=== PATIENT | male | born 1945 | race Caucasian/White ===

== ENCOUNTER 2016-09-09 03:48 | Emergency (ER) | payer MEDICARE ==
[2016-09-09 04:14] VITALS: TEMP 97.9
--- NOTE | 2016-09-09 04:29 | ED.PDOC ---
History of Present Illness - General Chief Complaint: General Stated Complaint: Rt leg numbness, dizziness Time Seen by Provider: 09/09/16 04:19 Additional Information: PT C/O DIZZINESS ONSET YESTERDAY. LIGHT HEADED. RECENTLY HAD CARDIAC STENT PLACED AND HE WAS CONCERNED HE MIGHT BE DEVELOPING A BLOOD CLOT. - History of Present Illness Timing/Duration: other - YESTERDAY Severity: mild Improving Factors: nothing Worsening Factors: nothing Associated Symptoms: denies symptoms Allergies/Adverse Reactions: Allergies NO KNOWN ALLERGY Allergy (Verified 09/09/16 04:14) Home Medications: Ambulatory Orders Glimepiride 4 mg PO DAILY 06/16/16 Lisinopril 10 mg PO DAILY 06/16/16 Metformin HCl 1,000 mg PO BID 06/16/16 Metoprolol Tartrate 100 mg PO BID 06/16/16 Pravastatin Sodium 40 mg PO BEDTIME 06/16/16 Trazodone HCl 100 mg PO 06/16/16 Furosemide 20 mg PO DAILY 07/30/16 Meloxicam 15 mg PO DAILY 07/30/16 Amoxicillin & Pot Clavulanate [Augmentin Tab] 875 mg PO BID #20 tab 08/12/16 Amiodarone HCl 200 mg PO DAILY 09/09/16 Aspirin [[facility] [place] Low Dose Aspiri] 81 mg PO DAILY 09/09/16 Carvedilol 12.5 mg PO DAILY 09/09/16 Ticagrelor [Brilinta] 90 mg PO BID 09/09/16 Review of Systems - Review of Systems Constitutional: Denies: chills, fever EENTM: Denies: eye pain, blurred vision, ear discharge, throat pain Respiratory: Denies: cough, short of breath, wheezing Cardiology: Denies: chest pain, palpitations Gastrointestinal/Abdominal: Denies: abdominal pain, nausea, vomiting Genitourinary: Denies: dysuria, frequency, hematuria Musculoskeletal: Denies: back pain Skin: Denies: no symptoms reported Neurological: States: numbness, paresthesia. Denies: weakness Endocrine: States: no symptoms reported Hematologic/Lymphatic: States: no symptoms reported Past Medical History (General) - Patient Medical History Hx Stroke: No Hx Dementia: Yes Hx of COPD: Yes Hx Cardiac Disorders: Yes Hx Congestive Heart Failure: No Hx Hypertension: Yes Hx Diabetes: Yes Hx Other - free text: PVD - Vaccination History Hx Tetanus, Diphtheria Vaccination: No Hx Influenza Vaccination: Yes Hx Pneumococcal Vaccination: Yes - Social History Hx Tobacco Use: No - e cigarette Hx Alcohol Use: No Hx Substance Use: No Hx Substance Use Treatment: No Hx Depression: No - Female History Patient : No Family Medical History - Family History Father Family History: Unknown Living Status: Unknown Physical Exam - Physical Exam General Appearance: Alert, Comfortable, No apparent distress Eye Exam: bilateral normal Ears, Nose, Throat: hearing grossly normal, normal ENT inspection Neck: non-tender, full range of motion, supple, normal inspection Respiratory: lungs clear, normal breath sounds Cardiovascular/Chest: regular rate, rhythm, no murmur Peripheral Pulses: dorsalis pedis,right: 0, posterior tibialis,right: 0 - FOOT IS STILL WARM TO TOUCH, NL COLOR WITHOUT REST PAIN Gastrointestinal/Abdominal: non tender, soft, no organomegaly Back Exam: normal inspection, no CVA tenderness Extremity: normal range of motion, non-tender, normal inspection Neurologic: no motor/sensory deficits, normal mood/affect, oriented x 3 Skin Exam: normal color Lymphatic: no adenopathy Progress - Progress Progress: 09/09/16 06:06 FEELS BETTER. PT WAS PRIMARILY WORRIED HE HAD A BLOOD CLOT SOMEWHERE. SX'S HAVE RESOLVED. - EKG/XRAY/CT EKG: nonspecific ST T wave Chg, Unchanged from - 08/12/16 Comments: VENTRICULAR PACED RATE 61. LAD, NAIP, Departure - Departure Clinical Impression: Essential (primary) hypertension, Coronary artery arteriosclerosis, Peripheral vascular disease Time of Disposition: 06:12 Disposition: Discharge to Home or Self Care Condition: Fair Departure Forms: ED Discharge - Pt. Copy, Patient Portal Self Enrollment Instructions: High Blood Pressure Home Medications: Ambulatory Orders Glimepiride 4 mg PO DAILY 06/16/16 Lisinopril 10 mg PO DAILY 06/16/16 Metformin HCl 1,000 mg PO BID 06/16/16 Metoprolol Tartrate 100 mg PO BID 06/16/16 Pravastatin Sodium 40 mg PO BEDTIME 06/16/16 Trazodone HCl 100 mg PO 06/16/16 Furosemide 20 mg PO DAILY 07/30/16 Meloxicam 15 mg PO DAILY 07/30/16 Amoxicillin & Pot Clavulanate [Augmentin Tab] 875 mg PO BID #20 tab 08/12/16 Amiodarone HCl 200 mg PO DAILY 09/09/16 Aspirin [[facility] Low Dose Aspiri] 81 mg PO DAILY 09/09/16 Carvedilol 12.5 mg PO DAILY 09/09/16 Ticagrelor [Brilinta] 90 mg PO BID 09/09/16
[2016-09-09 06:38] VITALS: BP 110/60; O2SAT 96
== END 2016-09-09 06:38 | disposition home or self-care (01) ==
LOC: ER 03:48
DX: I73.9 Peripheral vascular disease, unspecified (principal); I25.10 Atherosclerotic heart disease of native coronary artery without angina pectoris; I10 Essential (primary) hypertension; J44.9 Chronic obstructive pulmonary disease, unspecified; E11.9 Type 2 diabetes mellitus without complications; F03.90 Unspecified dementia, unspecified severity, without behavioral disturbance, psychotic disturbance, mood disturbance, and anxiety; F17.290 Nicotine dependence, other tobacco product, uncomplicated; Z79.899 Other long term (current) drug therapy; Z79.82 Long term (current) use of aspirin

== ENCOUNTER 2016-11-09 04:02 | Emergency (ER) | payer MEDICARE ==
[2016-11-09] MEDS ORDERED: IPRATROPIUM/ALBUTEROL 3 ML VIAL NEB ONE ×2 (04:04→05:01)
--- NOTE | 2016-11-09 04:57 | ED.PDOC ---
History of Present Illness - General Chief Complaint: Respiratory Problem Stated Complaint: trouble breathing experiencing SOB Time Seen by Provider: 11/09/16 04:48 Source: patient Exam Limitations: no limitations - History of Present Illness Initial Comments: Mr Jun Mcduffie 71 y/o male with hx of copd/chf/cad /dm2 stated that he had sudden onset of sob as he laid down in bed tonight.He stood up went to his recliner which made it a little better then called up friend.Denies chest pain symptoms. Timing/Duration: 1-3 hours Severity: moderate Improving Factors: rest Worsening Factors: movement Associated Symptoms: denies symptoms Allergies/Adverse Reactions: Allergies NO KNOWN ALLERGY Allergy (Verified 09/09/16 04:14) Home Medications: Ambulatory Orders Glimepiride 4 mg PO DAILY 06/16/16 Lisinopril 20 mg PO BID 06/16/16 Metformin HCl 1,000 mg PO BID 06/16/16 Metoprolol Tartrate 100 mg PO BID 06/16/16 Pravastatin Sodium 40 mg PO BEDTIME 06/16/16 Trazodone HCl 150 mg PO QPM 06/16/16 Furosemide 20 mg PO DAILY 07/30/16 Meloxicam 15 mg PO DAILY 07/30/16 Amiodarone HCl 200 mg PO BID 09/09/16 Aspirin [[facility] Low Dose Aspiri] 81 mg PO DAILY 09/09/16 Carvedilol 12.5 mg PO BID 09/09/16 Ticagrelor [Brilinta] 90 mg PO BID 09/09/16 HYDROcodone 10MG/APAP 325MG [[place] 10/325] 2 tab PO TID 11/09/16 Review of Systems - Review of Systems Constitutional: States: no symptoms reported EENTM: States: no symptoms reported Respiratory: States: see HPI Cardiology: States: no symptoms reported Gastrointestinal/Abdominal: States: no symptoms reported Genitourinary: States: no symptoms reported Musculoskeletal: States: no symptoms reported Skin: States: no symptoms reported Neurological: States: no symptoms reported Endocrine: States: no symptoms reported Hematologic/Lymphatic: States: no symptoms reported Past Medical History (General) - Patient Medical History Hx Stroke: No Hx Dementia: Yes Hx of COPD: Yes Hx Cardiac Disorders: Yes Hx Congestive Heart Failure: Yes Hx Pacemaker: Yes Hx Hypertension: Yes Hx Diabetes: Yes Surgical History: coronary bypass surgery, other - cardiac stent - Vaccination History Hx Tetanus, Diphtheria Vaccination: No Hx Influenza Vaccination: Yes Hx Pneumococcal Vaccination: Yes Immunizations Up to Date: Yes - Social History Hx Tobacco Use: No - e cigarette Hx Alcohol Use: No Hx Substance Use: No Hx Substance Use Treatment: No Hx Depression: No - Activities of Daily Living Patient Lives Alone: No - family Grooming Ability: Independent Eating (Feeding) Ability: Independent Toileting Ability: Independent - Female History Patient : No Family Medical History - Family History Father Family History: Unknown Living Status: Unknown Hx Cardiac Disease: Yes - dad-mi age 61 Physical Exam - Physical Exam General Appearance: Alert, Anxious, No apparent distress Eye Exam: bilateral other - wears corrective lenses Ears, Nose, Throat: hearing grossly normal, normal ENT inspection, normal pharynx Neck: non-tender, full range of motion, supple Respiratory: chest non-tender, decreased breath sounds, wheezing Cardiovascular/Chest: normal peripheral pulses, regular rate, rhythm, no edema, no gallop Peripheral Pulses: radial,right: 2+, radial,left: 2+ Gastrointestinal/Abdominal: normal bowel sounds, non tender, soft, no organomegaly, no pulsatile mass Back Exam: normal inspection, no CVA tenderness, no vertebral tenderness Extremity: normal range of motion, non-tender, normal inspection Neurologic: no motor/sensory deficits, alert, normal mood/affect, oriented x 3 Skin Exam: normal color, warm/dry Lymphatic: no adenopathy Progress - Results/Orders Results/Orders: 11/09/16 05:44 TSH [THYROID STIMULATING HORMONE] Stat Laboratory Results WBC 10.3 K/mm3 (4.8-10.8) 11/09/16 05:30 RBC 3.45 M/mm3 (4.70-6.10) L 11/09/16 05:30 Hgb 10.2 gm/dL (14.0-18.0) L 11/09/16 05:30 Hct 30.1 % (42.0-52.0) L 11/09/16 05:30 MCV 87.0 fl (80.0-94.0) 11/09/16 05:30 MCH 29.5 pg (27.0-31.0) 11/09/16 05:30 MCHC 34.1 g/dL (33.0-37.0) 11/09/16 05:30 RDW 15.1 % (11.5-14.5) H 11/09/16 05:30 Plt Count 207 K/mm3 (130-400) 11/09/16 05:30 MPV 7.3 fl (7.40-10.4) L 11/09/16 05:30 Absolute Neuts (auto) 8.40 K/uL (1.8-6.8) H 11/09/16 05:30 Absolute Lymphs (auto) 0.80 K/uL (1.0-3.4) L 11/09/16 05:30 Absolute Monos (auto) 0.60 K/uL (0.2-0.8) 11/09/16 05:30 Absolute Eos (auto) 0.30 K/uL (0.0-0.4) 11/09/16 05:30 Absolute Basos (auto) 0.10 K/uL (0.0-0.1) 11/09/16 05:30 Neutrophils % 81.8 % (42.0-78.0) H 11/09/16 05:30 Lymphocytes % 8.0 % (20.0-50.0) L 11/09/16 05:30 Monocytes % 6.2 % (2.0-9.0) 11/09/16 05:30 Eosinophils % 3.1 % (1.0-5.0) 11/09/16 05:30 Basophils % 0.9 % (0.0-2.0) 11/09/16 05:30 D-Dimer, Quantitative < 230 ng/mL (0-230) 11/09/16 05:30 Sodium 137 mmol/L (135-145) 11/09/16 05:30 Potassium 4.4 mmol/L (3.6-5.0) 11/09/16 05:30 Chloride 106 mmol/L (101-111) 11/09/16 05:30 Carbon Dioxide 23 mmol/L (21-31) 11/09/16 05:30 Anion Gap 12.4 (12-18) 11/09/16 05:30 BUN 24 mg/dL (7-18) H 11/09/16 05:30 Creatinine 0.84 mg/dL (0.6-1.3) 11/09/16 05:30 BUN/Creatinine Ratio 28.6 (10-20) H 11/09/16 05:30 Random Glucose 132 mg/dL (70-105) H 11/09/16 05:30 Serum Osmolality 279.7 mOsm/L (275-295) 11/09/16 05:30 Calcium 8.7 mg/dL (8.4-10.2) 11/09/16 05:30 Total Bilirubin 0.3 mg/dL (0.2-1.0) 11/09/16 05:30 AST 26 IU/L (10-42) 11/09/16 05:30 ALT 23 IU/L (10-60) 11/09/16 05:30 Alkaline Phosphatase 41 IU/L (42-121) L 11/09/16 05:30 Creatine Kinase 68 IU/L (38-174) 11/09/16 05:30 CK-MB (CK-2) 2.5 ng/mL (0.0-4.4) 11/09/16 05:30 CK-MB (CK-2) % Not Reportable 11/09/16 05:30 Troponin I 0.02 ng/mL (0.01-0.05) 11/09/16 05:30 B-Natriuretic Peptide 797.0 pg/ml (0-100) H* 11/09/16 05:30 Serum Total Protein 6.3 gm/dL (6.4-8.2) L 11/09/16 05:30 Albumin 3.8 g/dl (3.2-5.5) 11/09/16 05:30 Globulin 2.5 gm/dL (2.3-3.5) 11/09/16 05:30 Albumin/Globulin Ratio 1.5 (1.1-1.9) 11/09/16 05:30 Stated feeling better after th bumex iv went to urinate 4x since given the injection - EKG/XRAY/CT XRAY: chest - interstitial opacities Departure - Departure Clinical Impression: Dyspnea due to congestive heart failure Congestive heart failure Qualifiers: Qualifier Code: (I50.9) Heart failure, unspecified Dyspnea Qualifiers: Qualifier Code: (R06.02) Shortness of breath Time of Disposition: 06:44 Disposition: Discharge to Home or Self Care Condition: Fair Departure Forms: ED Discharge - Pt. Copy, Patient Portal Self Enrollment Instructions: DI for Heart Failure Diet: low salt diet, other - limit fluid intake to not more than 4 GLASSES( regular) a day Referrals: Mac Yun MD [Primary Care Provider] - 1-2 Weeks Home Medications: Ambulatory Orders Glimepiride 4 mg PO DAILY 06/16/16 Lisinopril 20 mg PO BID 06/16/16 Metformin HCl 1,000 mg PO BID 06/16/16 Metoprolol Tartrate 100 mg PO BID 06/16/16 Pravastatin Sodium 40 mg PO BEDTIME 06/16/16 Trazodone HCl 150 mg PO QPM 06/16/16 Furosemide 20 mg PO DAILY 07/30/16 Meloxicam 15 mg PO DAILY 07/30/16 Amiodarone HCl 200 mg PO BID 09/09/16 Aspirin [[facility] Low Dose Aspiri] 81 mg PO DAILY 09/09/16 Carvedilol 12.5 mg PO BID 09/09/16 Ticagrelor [Brilinta] 90 mg PO BID 09/09/16 HYDROcodone 10MG/APAP 325MG [[place] 10/325] 2 tab PO TID 11/09/16 Additional Instructions: RETURN TO EMERGENCY ROOM NEEDED
[2016-11-09] MEDS ORDERED: methylPREDNISolone SODIUM SUC 125 MG/2 ML VIAL IV ONE (05:03)
--- NOTE | 2016-11-09 05:10 | RAD ---
EXAM: Single view chest. INDICATION: Chest pain. COMPARISON: Chest x-ray: 08/12/2016. FINDINGS: There are diffuse interstitial opacities. The heart is enlarged with a left chest wall pacemaker in place. There is no pneumothorax. Small pleural effusions may be present. Median sternotomy wires are noted. IMPRESSION: Diffuse interstitial opacities, likely representing pulmonary edema Electronically signed by: Hakeem Bradshaw MD 11/09/2016 5:09 AM CDT
[2016-11-09] MEDS ORDERED: BUMETANIDE 0.25 MG/ML VIAL IV ONE (05:11)
[2016-11-09 06:13] VITALS: O2SAT 96
[2016-11-09 07:06] VITALS: BP 157/81; TEMP 98
== END 2016-11-09 07:00 | disposition home or self-care (01) ==
LOC: ER 04:02
DX: I11.0 Hypertensive heart disease with heart failure (principal); I50.9 Heart failure, unspecified; E11.9 Type 2 diabetes mellitus without complications; F03.90 Unspecified dementia, unspecified severity, without behavioral disturbance, psychotic disturbance, mood disturbance, and anxiety; Z95.1 Presence of aortocoronary bypass graft; Z98.61 Coronary angioplasty status; Z95.0 Presence of cardiac pacemaker; Z79.899 Other long term (current) drug therapy; Z79.82 Long term (current) use of aspirin
CPT/HCPCS: 71010; 80053; 82550; 82553; 83880; 84443; 84484; 85025; 85379; 94640; J2930; J3490; J7620

== ENCOUNTER 2016-11-28 22:51 | Emergency (ER) | payer MEDICARE ==
[2016-11-28] MEDS ORDERED: SODIUM CHLORIDE 0.9% (FLUSH) 10 ML SYG IV PRN (23:40)
--- NOTE | 2016-11-28 23:42 | RAD ---
Procedure: XR CHEST 1 VIEW Exam Date: 11/28/2016 Ordering Provider: Karen Troy Clinical Indication: shortness of breath Comparison: 11/09/2016 Findings: Prior CABG. The subclavian pacer with leads in appropriate position. The heart is enlarged. Pulmonary vasculature is normal. Mediastinal contour is normal. Aortic calcification. There is no focal lung consolidation. No pleural effusion. There is no pneumothorax. There is no acute bony or soft tissue abnormality. Impression: 1. No acute abnormalities in the chest. 2. Cardiomegaly. Electronically signed by: Go Silva MD 11/28/2016 11:42 PM CDT
--- NOTE | 2016-11-29 00:58 | ED.PDOC ---
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 He was on the couch and he was unable to catch his breath. He used his NEB and that did not help. Patient has a history of MD with CABG in July 2016. He denies any chest pain. Timing/Duration: 1-3 hours Severity: severe Improving Factors: nothing Worsening Factors: nothing Allergies/Adverse Reactions: Allergies NO KNOWN ALLERGY Allergy (Verified 11/28/16 23:10) Home Medications: Ambulatory Orders Glimepiride 4 mg PO DAILY 06/16/16 Lisinopril 20 mg PO BID 06/16/16 Metformin HCl 1,000 mg PO BID 06/16/16 Metoprolol Tartrate 100 mg PO BID 06/16/16 Pravastatin Sodium 40 mg PO BEDTIME 06/16/16 Trazodone HCl 150 mg PO QPM 06/16/16 Furosemide 20 mg PO DAILY 07/30/16 Meloxicam 15 mg PO DAILY 07/30/16 Amiodarone HCl 200 mg PO BID 09/09/16 Aspirin [[facility] Low Dose Aspiri] 81 mg PO DAILY 09/09/16 Carvedilol 12.5 mg PO BID 09/09/16 Ticagrelor [Brilinta] 90 mg PO BID 09/09/16 HYDROcodone 10MG/APAP 325MG [[place] 10/325] 2 tab PO TID 11/09/16 Review of Systems - Review of Systems Constitutional: States: no symptoms reported. Denies: chills, fever EENTM: States: no symptoms reported Respiratory: States: short of breath Cardiology: States: no symptoms reported. Denies: chest pain Gastrointestinal/Abdominal: States: no symptoms reported. Denies: nausea Genitourinary: States: no symptoms reported Musculoskeletal: States: back pain, muscle pain, muscle stiffness Skin: States: no symptoms reported Neurological: States: no symptoms reported Endocrine: States: no symptoms reported Hematologic/Lymphatic: States: easy bruising All other Systems: Reviewed and Negative Past Medical History (General) - Patient Medical History Hx Stroke: No Hx Dementia: Yes Hx of COPD: Yes Hx Cardiac Disorders: Yes - stents placed Hx Congestive Heart Failure: Yes Hx Pacemaker: Yes Hx Hypertension: Yes Hx Diabetes: Yes Surgical History: pacemaker - Vaccination History Hx Tetanus, Diphtheria Vaccination: No Hx Influenza Vaccination: Yes Hx Pneumococcal Vaccination: Yes - Social History Hx Tobacco Use: Yes - e cigarette Years Tobacco Use: 20 Cigarettes Packs Per Day: 1 Hx Alcohol Use: No Hx Substance Use: No Hx Substance Use Treatment: No Hx Depression: No - Female History Patient : No Family Medical History - Family History Father Family History: Unknown Living Status: Unknown Hx Cardiac Disease: Yes - dad-mi age 61 Physical Exam - Physical Exam General Appearance: Alert, No apparent distress, Unkempt Ears, Nose, Throat: hearing grossly normal, normal ENT inspection Respiratory: lungs clear, normal breath sounds, no respiratory distress, no accessory muscle use Cardiovascular/Chest: regular rate, rhythm, no edema, no murmur Gastrointestinal/Abdominal: non tender, soft, no organomegaly, no pulsatile mass Extremity: no pedal edema, no calf tenderness Neurologic: alert, normal mood/affect, oriented x 3 Skin Exam: normal color, warm/dry Progress - Progress Progress: 11/29/16 01:00 I told Patient I would like to get another Troponin in a couple of hours. However, he said that he has an invalid at home and he didn't want to stay. I discussed the risk that, due to his cardiac history, this may be his heart, however, he refused to stay. When patient arrived, his O2 saturation was 97% on room air although he felt short of breath. He has his O2 set at 3 LPM at home and was on O2 at the time he felt short of breath. He remained off of his O2 during his stay and was saturating at or above 94% the entire time. He did report that his shortness of breath declined significantly even though he was not on O2. I advised Patient to try to use his O2 only if his saturations were less than 93%, and to start low and gradually increase as needed. Additionally, as far as Patient's elevated creatinine, his piston maker has increased his diuretics in the past two weeks since he was last seen here. I explained to him that this may be why his kidney function has decreased and to discuss it with his piston maker when he sees him in 3 days. Patient agrees to return if he should have any further shortness of breath, chest pain, or palpitations of any kind. - Results/Orders Results/Orders: 11/28/16 11/28/16 11/29/16 23:11 23:42 00:00 Temperature 97.6 F Pulse Rate [ 60 60 left] Respiratory 20 22 Rate Blood Pressure 158/85 [left] O2 Sat by Pulse 97 95 Oximetry 11/29/16 00:30 Temperature Pulse Rate [ 60 left] Respiratory 20 Rate Blood Pressure 155/74 [left] O2 Sat by Pulse 95 Oximetry 11/28/16 23:09 Pulse Oximetry Assessment DAILY 11/28/16 23:40 IV Care:Saline Lock per Protoc QSHIFT Telemetry .ONCE Sodium Chloride 0.9% (Flush) [Saline Flush Syringe] 10 ml IV PRN PRN EKG Stat Pulse Ox Stat 11/29/16 09:00 Pulse Ox PRN Laboratory Results WBC 8.0 K/mm3 (4.8-10.8) 11/28/16 23:50 RBC 4.07 M/mm3 (4.70-6.10) L 11/28/16 23:50 Hgb 12.0 gm/dL (14.0-18.0) L 11/28/16 23:50 Hct 35.3 % (42.0-52.0) L 11/28/16 23:50 MCV 86.7 fl (80.0-94.0) 11/28/16 23:50 MCH 29.4 pg (27.0-31.0) 11/28/16 23:50 MCHC 34.0 g/dL (33.0-37.0) 11/28/16 23:50 RDW 15.0 % (11.5-14.5) H 11/28/16 23:50 Plt Count 255 K/mm3 (130-400) 11/28/16 23:50 MPV 7.5 fl (7.40-10.4) 11/28/16 23:50 Absolute Neuts (auto) 5.20 K/uL (1.8-6.8) 11/28/16 23:50 Absolute Lymphs (auto) 1.70 K/uL (1.0-3.4) 11/28/16 23:50 Absolute Monos (auto) 0.60 K/uL (0.2-0.8) 11/28/16 23:50 Absolute Eos (auto) 0.40 K/uL (0.0-0.4) 11/28/16 23:50 Absolute Basos (auto) 0.10 K/uL (0.0-0.1) 11/28/16 23:50 Neutrophils % 65.8 % (42.0-78.0) 11/28/16 23:50 Lymphocytes % 21.1 % (20.0-50.0) 11/28/16 23:50 Monocytes % 7.7 % (2.0-9.0) 11/28/16 23:50 Eosinophils % 4.7 % (1.0-5.0) 11/28/16 23:50 Basophils % 0.7 % (0.0-2.0) 11/28/16 23:50 PT 11.1 SECONDS (9.4-12.5) 11/28/16 23:50 INR 0.980 11/28/16 23:50 PTT (SP) 32.7 SECONDS (25.1-36.5) 11/28/16 23:50 D-Dimer, Quantitative < 230 ng/mL (0-230) 11/28/16 23:50 Sodium 138 mmol/L (135-145) 11/28/16 23:50 Potassium 4.4 mmol/L (3.6-5.0) 11/28/16 23:50 Chloride 103 mmol/L (101-111) 11/28/16 23:50 Carbon Dioxide 24 mmol/L (21-31) 11/28/16 23:50 Anion Gap 15.4 (12-18) 11/28/16 23:50 BUN 25 mg/dL (7-18) H 11/28/16 23:50 Creatinine 1.33 mg/dL (0.6-1.3) H 11/28/16 23:50 BUN/Creatinine Ratio 18.8 (10-20) 11/28/16 23:50 Random Glucose 124 mg/dL (70-105) H 11/28/16 23:50 Serum Osmolality 281.5 mOsm/L (275-295) 11/28/16 23:50 Calcium 9.5 mg/dL (8.4-10.2) 11/28/16 23:50 Magnesium 2.1 mg/dL (1.8-2.5) 11/28/16 23:50 Total Bilirubin 0.5 mg/dL (0.2-1.0) 11/28/16 23:50 Direct Bilirubin < 0.1 mg/dL (0-0.2) 11/28/16 23:50 Indirect Bilirubin 0.4 mg/dL (0.2-0.8) 11/28/16 23:50 AST 24 IU/L (10-42) 11/28/16 23:50 ALT 20 IU/L (10-60) 11/28/16 23:50 Alkaline Phosphatase 46 IU/L (42-121) 11/28/16 23:50 Creatine Kinase 63 IU/L (38-174) 11/28/16 23:50 CK-MB (CK-2) 2.4 ng/mL (0.0-4.4) 11/28/16 23:50 CK-MB (CK-2) % Not Reportable 11/28/16 23:50 Troponin I 0.03 ng/mL (0.01-0.05) 11/28/16 23:50 B-Natriuretic Peptide 582.0 pg/ml (0-100) H* 11/28/16 23:50 Serum Total Protein 7.3 gm/dL (6.4-8.2) 11/28/16 23:50 Albumin 4.5 g/dl (3.2-5.5) 11/28/16 23:50 - EKG/XRAY/CT Comments: Paced rhythm - 60 bpm XRAY: chest Xray Comments: No acute abnormalities. Cardiomegaly. Departure - Departure Clinical Impression: Dyspnea due to congestive heart failure, Acute renal insufficiency Congestive heart failure Qualifiers: Congestive heart failure type: unspecified congestive heart failure type Congestive heart failure chronicity: chronic Qualifier Code: (I50.9) Heart failure, unspecified Time of Disposition: :09 Disposition: Discharge to Home or Self Care Condition: Fair Departure Forms: ED Discharge - Pt. Copy, Patient Portal Self Enrollment Diet: low salt diet Referrals: WENDY CUTLER [Referring] - 1-5 Days Home Medications: Ambulatory Orders Glimepiride 4 mg PO DAILY 06/16/16 Lisinopril 20 mg PO BID 06/16/16 Metformin HCl 1,000 mg PO BID 06/16/16 Metoprolol Tartrate 100 mg PO BID 06/16/16 Pravastatin Sodium 40 mg PO BEDTIME 06/16/16 Trazodone HCl 150 mg PO QPM 06/16/16 Furosemide 20 mg PO DAILY 07/30/16 Meloxicam 15 mg PO DAILY 07/30/16 Amiodarone HCl 200 mg PO BID 09/09/16 Aspirin [[place] Low Dose Aspiri] 81 mg PO DAILY 09/09/16 Carvedilol 12.5 mg PO BID 09/09/16 Ticagrelor [Brilinta] 90 mg PO BID 09/09/16 HYDROcodone 10MG/APAP 325MG [[place] 10/325] 2 tab PO TID 11/09/16 Additional Instructions: Follow up in the ED immediately for worsening shortness of breath, chest pain, or palpitations.
[2016-11-29 01:33] VITALS: BP 158/72; TEMP 97.9; O2SAT 96
== END 2016-11-29 01:20 | disposition home or self-care (01) ==
LOC: ER 22:51
DX: I11.0 Hypertensive heart disease with heart failure (principal); I50.9 Heart failure, unspecified; N28.9 Disorder of kidney and ureter, unspecified; I51.7 Cardiomegaly; I25.2 Old myocardial infarction; Z87.891 Personal history of nicotine dependence; E11.9 Type 2 diabetes mellitus without complications; Z95.0 Presence of cardiac pacemaker; Z95.1 Presence of aortocoronary bypass graft; Z98.61 Coronary angioplasty status; F03.90 Unspecified dementia, unspecified severity, without behavioral disturbance, psychotic disturbance, mood disturbance, and anxiety; Z79.82 Long term (current) use of aspirin; Z79.899 Other long term (current) drug therapy

== ENCOUNTER 2016-11-29 02:42 | Emergency (ER) | payer MEDICARE ==
[2016-11-29] MEDS ORDERED: SODIUM CHLORIDE 0.9% (FLUSH) 10 ML SYG IV PRN (02:48)
--- NOTE | 2016-11-29 03:04 | RAD ---
EXAM: Single view chest. INDICATION: Chest pain. COMPARISON: Chest x-ray: 11/28/2016. FINDINGS: Cardiac silhouette: Enlarged with a left chest wall pacemaker in place Stacey: Unremarkable. Lobar consolidation: None. Pleural effusion: None. Pneumothorax: None. Other: None. Bones: Demineralized Other: None. IMPRESSION: 1. No acute cardiopulmonary process. Electronically signed by: Hakeem Bradshaw MD 11/29/2016 3:03 AM CDT
[2016-11-29] MEDS ORDERED: FUROSEMIDE INJ 20 MG/2 ML VIAL IV ONE (03:29)
[2016-11-29] MEDS ORDERED: methylPREDNISolone SODIUM SUC 125 MG/2 ML VIAL IV ONE (03:29)
--- NOTE | 2016-11-29 04:04 | ED.PDOC ---
History of Present Illness - General Chief Complaint: Respiratory Problem Stated Complaint: shortness of breath Time Seen by Provider: 11/29/16 02:52 Source: patient, RN notes reviewed, Vital Signs reviewed Exam Limitations: no limitations - History of Present Illness Initial Comments: Patient is a 71 y/o male who was here earlier this evening with shortness of breath. I had wanted to keep him to do some more tests, however he refused. Therefore, I discharged him with strict instructions to return for any continuing problems. He returned stating that his shortness of breath worsened after he got home. He denies any nausea, diaphoresis, chest pain. His shortness of breath is worse when he lays down. Timing/Duration: 24 hours, getting worse Severity: severe Improving Factors: nothing Worsening Factors: nothing Associated Symptoms: shortness of breath Allergies/Adverse Reactions: Allergies NO KNOWN ALLERGY Allergy (Verified 11/28/16 23:10) Home Medications: Ambulatory Orders Glimepiride 4 mg PO DAILY 06/16/16 Lisinopril 20 mg PO BID 06/16/16 Metformin HCl 1,000 mg PO BID 06/16/16 Metoprolol Tartrate 100 mg PO BID 06/16/16 Pravastatin Sodium 40 mg PO BEDTIME 06/16/16 Trazodone HCl 150 mg PO QPM 06/16/16 Furosemide 20 mg PO DAILY 07/30/16 Meloxicam 15 mg PO DAILY 07/30/16 Amiodarone HCl 200 mg PO BID 09/09/16 Aspirin [[place] Low Dose Aspiri] 81 mg PO DAILY 09/09/16 Carvedilol 12.5 mg PO BID 09/09/16 Ticagrelor [Brilinta] 90 mg PO BID 09/09/16 HYDROcodone 10MG/APAP 325MG [[place] 10/325] 2 tab PO TID 11/09/16 Lorazepam [Ativan] 0.5 mg PO TID PRN #10 tab 11/29/16 Prednisone [Deltasone] 20 mg PO DAILY #20 tab 11/29/16 Review of Systems - Review of Systems Constitutional: States: no symptoms reported. Denies: diaphoresis EENTM: States: no symptoms reported Respiratory: States: short of breath Cardiology: States: no symptoms reported. Denies: chest pain, palpitations Gastrointestinal/Abdominal: States: no symptoms reported. Denies: nausea Genitourinary: States: no symptoms reported Musculoskeletal: States: back pain Skin: States: no symptoms reported Neurological: States: anxiety Endocrine: States: no symptoms reported Hematologic/Lymphatic: States: no symptoms reported All other Systems: Reviewed and Negative Past Medical History (General) - Patient Medical History Hx Stroke: No Hx Dementia: Yes Hx of COPD: Yes Hx Cardiac Disorders: Yes - stents placed Hx Congestive Heart Failure: Yes Hx Pacemaker: Yes Hx Hypertension: Yes Hx Diabetes: Yes Surgical History: pacemaker, other - Vaccination History Hx Tetanus, Diphtheria Vaccination: No Hx Influenza Vaccination: Yes Hx Pneumococcal Vaccination: Yes - Social History Hx Tobacco Use: Yes - e cigarette Years Tobacco Use: 20 Hx Alcohol Use: No Hx Substance Use: No Hx Substance Use Treatment: No Hx Depression: No - Female History Patient : No Family Medical History - Family History Father Family History: Unknown Living Status: Unknown Hx Cardiac Disease: Yes - dad-mi age 61 Physical Exam - Physical Exam General Appearance: Alert Ears, Nose, Throat: hearing grossly normal Respiratory: lungs clear, normal breath sounds, no respiratory distress, no accessory muscle use Cardiovascular/Chest: regular rate, rhythm, no edema, no gallop, no murmur Gastrointestinal/Abdominal: normal bowel sounds, non tender, soft, no organomegaly Neurologic: alert, normal mood/affect, oriented x 3 Skin Exam: normal color Progress - Progress Progress: 11/29/16 06:54 Since Patient has been her twice, I indicated that I would like to admit him for observation. However, he refused stating that he is feeling much better. I will send him home with prescriptions for prednisone and ativan. 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 He will return if his symptoms worsen. - Results/Orders Results/Orders: 11/29/16 11/29/16 11/29/16 02:55 02:56 04:09 Temperature 97.8 F Pulse Rate [ 60 60 60 left] Respiratory 22 24 24 Rate Blood Pressure 162/120 141/78 [left] O2 Sat by Pulse 97 97 97 Oximetry 11/29/16 11/29/16 05:00 06:30 Temperature Pulse Rate [ 60 60 left] Respiratory 24 24 Rate Blood Pressure 138/58 148/89 [left] O2 Sat by Pulse 97 96 Oximetry 11/29/16 02:48 IV Care:Saline Lock per Protoc QSHIFT Telemetry .ONCE Sodium Chloride 0.9% (Flush) [Saline Flush Syringe] 10 ml IV PRN PRN EKG Stat Pulse Ox Stat 11/29/16 02:49 Pulse Oximetry Assessment DAILY Laboratory Results D-Dimer, Quantitative < 230 ng/mL (0-230) 11/29/16 03:05 Sodium Cancelled 11/29/16 03:05 Potassium Cancelled 11/29/16 03:05 Chloride Cancelled 11/29/16 03:05 Carbon Dioxide Cancelled 11/29/16 03:05 Anion Gap Cancelled 11/29/16 03:05 BUN Cancelled 11/29/16 03:05 Creatinine Cancelled 11/29/16 03:05 BUN/Creatinine Ratio Cancelled 11/29/16 03:05 Random Glucose Cancelled 11/29/16 03:05 Serum Osmolality Cancelled 11/29/16 03:05 Calcium Cancelled 11/29/16 03:05 Magnesium Cancelled 11/29/16 03:05 Creatine Kinase 58 IU/L (38-174) 11/29/16 06:03 CK-MB (CK-2) 2.4 ng/mL (0.0-4.4) 11/29/16 06:03 CK-MB (CK-2) % Not Reportable 11/29/16 06:03 Troponin I 0.02 ng/mL (0.01-0.05) 11/29/16 06:03 B-Natriuretic Peptide Cancelled 11/29/16 03:05 - EKG/XRAY/CT Comments: Paced rhythm XRAY: chest Xray Comments: No acute process. Cardiomegaly. Departure - Departure Clinical Impression: COPD exacerbation, Anxiety Congestive heart failure Qualifiers: Congestive heart failure type: unspecified congestive heart failure type Congestive heart failure chronicity: chronic Qualifier Code: (I50.9) Heart failure, unspecified Time of Disposition: 06:54 Disposition: Discharge to Home or Self Care Condition: Fair Departure Forms: ED Discharge - Pt. Copy, Patient Portal Self Enrollment Diet: resume usual diet Referrals: Mac Yun MD [Primary Care Provider] - 1-2 Weeks Prescriptions: Lorazepam [Ativan] 0.5 mg PO TID PRN #10 tab PRN Reason: Shortness Of Breath Prednisone [Deltasone] 20 mg PO DAILY #20 tab Home Medications: Ambulatory Orders Glimepiride 4 mg PO DAILY 06/16/16 Lisinopril 20 mg PO BID 06/16/16 Metformin HCl 1,000 mg PO BID 06/16/16 Metoprolol Tartrate 100 mg PO BID 06/16/16 Pravastatin Sodium 40 mg PO BEDTIME 06/16/16 Trazodone HCl 150 mg PO QPM 06/16/16 Furosemide 20 mg PO DAILY 07/30/16 Meloxicam 15 mg PO DAILY 07/30/16 Amiodarone HCl 200 mg PO BID 09/09/16 Aspirin [[facility] [place] Low Dose Aspiri] 81 mg PO DAILY 09/09/16 Carvedilol 12.5 mg PO BID 09/09/16 Ticagrelor [Brilinta] 90 mg PO BID 09/09/16 HYDROcodone 10MG/APAP 325MG [[place] 10/325] 2 tab PO TID 11/09/16 Lorazepam [Ativan] 0.5 mg PO TID PRN #10 tab 11/29/16 Prednisone [Deltasone] 20 mg PO DAILY #20 tab 11/29/16 Additional Instructions: Follow up in ED if symptoms again worsen.
[2016-11-29 06:49] VITALS: O2SAT 96
[2016-11-29 07:15] VITALS: BP 154/72; TEMP 98.2
== END 2016-11-29 07:10 | disposition home or self-care (01) ==
LOC: ER 02:42
DX: J44.1 Chronic obstructive pulmonary disease with (acute) exacerbation (principal); F41.9 Anxiety disorder, unspecified; I11.0 Hypertensive heart disease with heart failure; I50.9 Heart failure, unspecified; Z98.61 Coronary angioplasty status; E11.9 Type 2 diabetes mellitus without complications; Z95.0 Presence of cardiac pacemaker; Z79.82 Long term (current) use of aspirin; Z79.899 Other long term (current) drug therapy; Z82.49 Family history of ischemic heart disease and other diseases of the circulatory system; Z87.891 Personal history of nicotine dependence
CPT/HCPCS: 36415; 71010; 82550; 82553; 84484; 85379; 93005; 94760; J1940; J2060; J2930

== ENCOUNTER → 2016-11-30 | Outpatient (CLI) | payer MEDICARE | LOC: GMAH 13:27 | PROVIDERS: ATTEND Family Medicine | DX: I25.5 Ischemic cardiomyopathy (principal) ==

== ENCOUNTER 2016-12-13 06:13 | Emergency (ER) | payer MEDICARE ==
[2016-12-13] MEDS: NITROGLYCERIN 0.4 MG 25 EA TAB SL ONE ×3 (06:15→06:25)
[2016-12-13] MEDS ORDERED: ASPIRIN TABLET 325 MG TAB ONE (06:25)
[2016-12-13] MEDS ORDERED: ASPIRIN TABLET 325 MG TAB PO ONE (06:25)
[2016-12-13] MEDS ORDERED: SODIUM CHLORIDE 0.9% (FLUSH) 10 ML SYG IV PRN (06:25)
[2016-12-13] MEDS ORDERED: NITROGLYCERIN 0.4 MG 25 EA TAB SL ONE (06:25)
--- NOTE | 2016-12-13 06:25 | ED.PDOC ---
History of Present Illness - General Source: patient Exam Limitations: no limitations Additional Information: Jun Mcduffie 71 y/o male w/cad ,dm,pad with recent stent on his leg stated he noticed right foot swelled up started at 10 pm last night then waking up this am had chest tightness no diaphoresis,no nausea,no vomiting decided to come here.Had history of cardiac arrest 4 months ago and had also cardiac stent.Presently chest pain got better after nitroglycerin. - History of Present Illness Timing/Duration: 1 hour Location: central Activities at Onset: rest Prior Chest Pain/Cardiac Workup: cardiac cath, echocardiography, heart attack, stress test Improving Factors: rest Worsening Factors: nothing Nitro Today/Relief: provided by ED Aspirin Treatment Today: 81 mg x 1 Associated Symptoms: other - leg swelling <Benton Hooks - Last Filed: 12/13/16 06:54> <Karen Troy - Last Filed: 12/13/16 09:51> - General Chief Complaint: Cardiovascular Problem Stated Complaint: chest pain /leg swelling right Time Seen by Provider: 12/13/16 06:15 - History of Present Illness Allergies/Adverse Reactions: Allergies NO KNOWN ALLERGY Allergy (Verified 11/28/16 23:10) Home Medications: Ambulatory Orders Glimepiride 4 mg PO DAILY 06/16/16 Lisinopril 20 mg PO BID 06/16/16 Metformin HCl 1,000 mg PO BID 06/16/16 Metoprolol Tartrate 100 mg PO BID 06/16/16 Pravastatin Sodium 40 mg PO BEDTIME 06/16/16 Trazodone HCl 150 mg PO QPM 06/16/16 Furosemide 20 mg PO DAILY 07/30/16 Meloxicam 15 mg PO DAILY 07/30/16 Amiodarone HCl 200 mg PO BID 09/09/16 Aspirin [[facility] [place] Low Dose Aspiri] 81 mg PO DAILY 09/09/16 Carvedilol 12.5 mg PO BID 09/09/16 Ticagrelor [Brilinta] 90 mg PO BID 09/09/16 HYDROcodone 10MG/APAP 325MG [[place] 10/325] 2 tab PO TID 11/09/16 Lorazepam [Ativan] 0.5 mg PO TID PRN #10 tab 11/29/16 Prednisone [Deltasone] 20 mg PO DAILY #20 tab 11/29/16 Levothyroxine Sodium [Synthroid] 25 mcg PO QAM #30 tab 12/13/16 Review of Systems - Review of Systems Constitutional: States: no symptoms reported EENTM: States: no symptoms reported Respiratory: States: orthopnea, other - exertional dyspnea Cardiology: States: see HPI Gastrointestinal/Abdominal: States: no symptoms reported Genitourinary: States: no symptoms reported Musculoskeletal: States: see HPI Skin: States: no symptoms reported Neurological: States: no symptoms reported Endocrine: States: no symptoms reported Hematologic/Lymphatic: States: no symptoms reported <Benton Hooks R - Last Filed: 12/13/16 06:54> Past Medical History (General) - Patient Medical History Hx Stroke: No Hx Dementia: Yes Hx of COPD: Yes Hx Cardiac Disorders: Yes - stents placed Hx Congestive Heart Failure: Yes Hx Pacemaker: Yes Hx Hypertension: Yes Hx Diabetes: Yes Surgical History: coronary bypass surgery, other - cardiac and leg stent Other Surgeries:: pacemaker - Vaccination History Hx Tetanus, Diphtheria Vaccination: No Hx Influenza Vaccination: Yes Hx Pneumococcal Vaccination: Yes - Social History Hx Tobacco Use: Yes - e cigarette Hx Alcohol Use: No Hx Substance Use: No Hx Substance Use Treatment: No Hx Depression: No - Activities of Daily Living Patient Lives Alone: No - family Grooming Ability: Independent Eating (Feeding) Ability: Independent Toileting Ability: Independent - Female History Patient : No <ZaraChristopher garzao R - Last Filed: 12/13/16 06:54> Family Medical History - Family History Father Family History: Unknown Living Status: Unknown Hx Cardiac Disease: Yes - dad-mi age 61 <ZaraChristopher garzao R - Last Filed: 12/13/16 06:54> Physical Exam - Physical Exam General Appearance: Alert, Comfortable, No apparent distress Eyes, Ears, Nose, Throat Exam: PERRL/EOMI, normal ENT inspection, TMs normal, pharynx normal Neck: non-tender, full range of motion, supple, normal inspection Respiratory: chest non-tender, lungs clear, normal breath sounds, no respiratory distress Cardiovascular/Chest: normal peripheral pulses, regular rate, rhythm, no gallop , no JVD, no murmur Peripheral Pulses: radial,right: 2+, radial,left: 2+ Gastrointestinal/Abdominal: normal bowel sounds, non tender, soft, no organomegaly, no pulsatile mass Extremity: normal range of motion, pedal edema - right .left Skin Exam: normal color, warm/dry Lymphatic: no adenopathy <Benton Hooks R - Last Filed: 12/13/16 06:54> Progress - EKG/XRAY/CT EKG: Sinus, ST depression - lateral leads,pacemaker rhythm,rate 69 <Benton Hooks R - Last Filed: 12/13/16 06:54> - Progress Progress: 12/13/16 09:44 I requested that Patient stay so that we could get a third set of cardiac enzymes, however he refused. He agrees to return if he should have any further chest pain or shortness of breath. - Results/Orders Results/Orders: 12/13/16 06:27 Temperature 97 F L Pulse Rate [ 68 tele] Respiratory 22 Rate Blood Pressure 197/103 [left upper arm ] O2 Sat by Pulse 96 Oximetry 12/13/16 06:25 Telemetry .ONCE Sodium Chloride 0.9% (Flush) [Saline Flush Syringe] 10 ml IV PRN PRN EKG Stat Pulse Ox Stat 12/13/16 06:26 Pulse Oximetry Assessment DAILY Laboratory Results WBC 12.8 K/mm3 (4.8-10.8) H 12/13/16 06:25 RBC 3.78 M/mm3 (4.70-6.10) L 12/13/16 06:25 Hgb 10.9 gm/dL (14.0-18.0) L 12/13/16 06:25 Hct 33.2 % (42.0-52.0) L 12/13/16 06:25 MCV 87.8 fl (80.0-94.0) 12/13/16 06:25 MCH 28.8 pg (27.0-31.0) 12/13/16 06:25 MCHC 32.8 g/dL (33.0-37.0) L 12/13/16 06:25 RDW 15.9 % (11.5-14.5) H 12/13/16 06:25 Plt Count 236 K/mm3 (130-400) 12/13/16 06:25 MPV 7.3 fl (7.40-10.4) L 12/13/16 06:25 Absolute Neuts (auto) 9.80 K/uL (1.8-6.8) H 12/13/16 06:25 Absolute Lymphs (auto) 1.70 K/uL (1.0-3.4) 12/13/16 06:25 Absolute Monos (auto) 1.00 K/uL (0.2-0.8) H 12/13/16 06:25 Absolute Eos (auto) 0.20 K/uL (0.0-0.4) 12/13/16 06:25 Absolute Basos (auto) 0.10 K/uL (0.0-0.1) 12/13/16 06:25 Neutrophils % 76.6 % (42.0-78.0) 12/13/16 06:25 Lymphocytes % 13.3 % (20.0-50.0) L 12/13/16 06:25 Monocytes % 7.5 % (2.0-9.0) 12/13/16 06:25 Eosinophils % 1.7 % (1.0-5.0) 12/13/16 06:25 Basophils % 0.9 % (0.0-2.0) 12/13/16 06:25 PT 10.4 SECONDS (9.4-12.5) 12/13/16 06:25 INR 0.920 12/13/16 06:25 PTT (SP) 28.2 SECONDS (25.1-36.5) 12/13/16 06:25 D-Dimer, Quantitative < 230 ng/mL (0-230) 12/13/16 06:25 Sodium 135 mmol/L (135-145) 12/13/16 06:25 Potassium 4.8 mmol/L (3.6-5.0) 12/13/16 06:25 Chloride 101 mmol/L (101-111) 12/13/16 06:25 Carbon Dioxide 28 mmol/L (21-31) 12/13/16 06:25 Anion Gap 10.8 (12-18) L 12/13/16 06:25 BUN 23 mg/dL (7-18) H 12/13/16 06:25 Creatinine 0.98 mg/dL (0.6-1.3) 12/13/16 06:25 BUN/Creatinine Ratio 23.5 (10-20) H 12/13/16 06:25 Random Glucose 193 mg/dL (70-105) H 12/13/16 06:25 Serum Osmolality 279.0 mOsm/L (275-295) 12/13/16 06:25 Calcium 8.9 mg/dL (8.4-10.2) 12/13/16 06:25 Magnesium 2.2 mg/dL (1.8-2.5) 12/13/16 06:25 Total Bilirubin 0.5 mg/dL (0.2-1.0) 12/13/16 06:25 Direct Bilirubin 0.1 mg/dL (0-0.2) 12/13/16 06:25 Indirect Bilirubin 0.4 mg/dL (0.2-0.8) 12/13/16 06:25 AST 18 IU/L (10-42) 12/13/16 06:25 ALT 19 IU/L (10-60) 12/13/16 06:25 Alkaline Phosphatase 42 IU/L (42-121) 12/13/16 06:25 Creatine Kinase 62 IU/L (38-174) 12/13/16 09:05 CK-MB (CK-2) 2.3 ng/mL (0.0-4.4) 12/13/16 09:05 CK-MB (CK-2) % Not Reportable 12/13/16 09:05 Troponin I 0.03 ng/mL (0.01-0.05) 12/13/16 09:05 B-Natriuretic Peptide 548.0 pg/ml (0-100) H* 12/13/16 06:25 Serum Total Protein 6.8 gm/dL (6.4-8.2) 12/13/16 06:25 Albumin 4.0 g/dl (3.2-5.5) 12/13/16 06:25 TSH 11.46 uIU/mL (0.34-5.60) H 12/13/16 06:25 - EKG/XRAY/CT XRAY: chest - Cardiomegaly, insterstitial edema <Karen Troy - Last Filed: 12/13/16 09:51> Departure <Benton Hooks - Last Filed: 12/13/16 06:54> - Departure Time of Disposition: 09:43 Diet: low salt diet <Karen Troy - Last Filed: 12/13/16 09:51> - Departure Clinical Impression: Edema of right lower extremity Congestive heart failure Qualifiers: Congestive heart failure type: unspecified congestive heart failure type Congestive heart failure chronicity: acute on chronic Qualifier Code: (I50.9) Heart failure, unspecified Hypothyroidism Qualifiers: Hypothyroidism type: unspecified Qualifier Code: (E03.9) Hypothyroidism, unspecified Diabetes mellitus Qualifiers: Diabetes mellitus type: type 2 Diabetes mellitus complication status: with hyperglycemia Qualifier Code: (E11.65) Type 2 diabetes mellitus with hyperglycemia Disposition: Discharge to Home or Self Care Condition: Good Departure Forms: ED Discharge - Pt. Copy, Patient Portal Self Enrollment Instructions: Hypothyroidism, DI for Hypothyroidism, Heart Failure, DI for Heart Failure, DI for Dependent Edema, DI for Peripheral Edema, Unilateral Referrals: Mac Yun MD [Primary Care Provider] - 1 Week Prescriptions: Levothyroxine Sodium [Synthroid] 25 mcg PO QAM #30 tab Home Medications: Ambulatory Orders Glimepiride 4 mg PO DAILY 06/16/16 Lisinopril 20 mg PO BID 06/16/16 Metformin HCl 1,000 mg PO BID 06/16/16 Metoprolol Tartrate 100 mg PO BID 06/16/16 Pravastatin Sodium 40 mg PO BEDTIME 06/16/16 Trazodone HCl 150 mg PO QPM 06/16/16 Furosemide 20 mg PO DAILY 07/30/16 Meloxicam 15 mg PO DAILY 07/30/16 Amiodarone HCl 200 mg PO BID 09/09/16 Aspirin [[facility] [place] Low Dose Aspiri] 81 mg PO DAILY 09/09/16 Carvedilol 12.5 mg PO BID 09/09/16 Ticagrelor [Brilinta] 90 mg PO BID 09/09/16 HYDROcodone 10MG/APAP 325MG [[place] 10/325] 2 tab PO TID 11/09/16 Lorazepam [Ativan] 0.5 mg PO TID PRN #10 tab 11/29/16 Prednisone [Deltasone] 20 mg PO DAILY #20 tab 11/29/16 Levothyroxine Sodium [Synthroid] 25 mcg PO QAM #30 tab 12/13/16 Additional Instructions: Follow up in ED if you have any further chest pain or shortness of breath. Follow up with your PCP in one week.
[2016-12-13 06:52] VITALS: TEMP 97
--- NOTE | 2016-12-13 07:10 | RAD ---
Clinical History : pain , MAIN Exam : Portable AP view of the chest 12/13/2016 6:25 AM CDT Comparisons : Portable AP view of the chest November 29, 2016 Findings : There is mild diffuse peribronchial thickening throughout the lungs bilaterally. There is no focal consolidation or pleural effusion.. The heart is stable in size. The mediastinal contours are normal in appearance. The patient is status post sternotomy and CABG. There are vascular calcifications along the aortic arch. There is a left chest [address] The thoracic spine is age appropriate. The shoulders are unremarkable. Limited evaluation of the upper abdomen demonstrates no gross abnormalities. Impression: Cardiomegaly with mild peribronchial thickening, likely representing interstitial edema. Electronically signed by: Evelyn Arias MD 12/13/2016 7:09 AM CDT
[2016-12-13] MEDS ORDERED: FUROSEMIDE INJ 40 MG/4 ML VIAL IV ONE (07:24)
[2016-12-13] MEDS ORDERED: LEVOTHYROXINE SODIUM 0.025 MG TAB PO ONE (09:56)
[2016-12-13 10:11] VITALS: BP 185/86; O2SAT 95
[2016-12-14] MEDS ORDERED: LEVOTHYROXINE SODIUM 0.025 MG TAB PO ONE (09:50)
== END 2016-12-13 10:12 | disposition home or self-care (01) ==
LOC: ER 06:13
DX: I11.0 Hypertensive heart disease with heart failure (principal); I50.9 Heart failure, unspecified; E11.65 Type 2 diabetes mellitus with hyperglycemia; R60.0 Localized edema; E03.9 Hypothyroidism, unspecified; Z98.61 Coronary angioplasty status; Z95.0 Presence of cardiac pacemaker; Z87.891 Personal history of nicotine dependence; J44.9 Chronic obstructive pulmonary disease, unspecified; F03.90 Unspecified dementia, unspecified severity, without behavioral disturbance, psychotic disturbance, mood disturbance, and anxiety; Z86.74 Personal history of sudden cardiac arrest; Z82.49 Family history of ischemic heart disease and other diseases of the circulatory system; Z79.899 Other long term (current) drug therapy; Z79.82 Long term (current) use of aspirin
CPT/HCPCS: 36415; 71010; 80048; 80076; 82550; 82553; 83880; 84443; 84484; 85025; 85379; 85610; 85730; 93005; J1940

== ENCOUNTER → 2016-12-15 | Outpatient (CLI) | payer MEDICARE | END | disposition home or self-care (01) | LOC: GMAH 10:20 | PROVIDERS: ATTEND Family Medicine | DX: E11.9 Type 2 diabetes mellitus without complications (principal); E03.9 Hypothyroidism, unspecified ==

== ENCOUNTER 2017-02-24 11:57 | Emergency (ER) | payer MEDICARE ==
--- NOTE | 2017-02-24 12:42 | RAD ---
Two view chest INDICATION: weakness COMPARISON: December 13, 2016 IMPRESSION: Borderline heart size. Post median sternotomy. Dual-lead pacemaker. No failure. No focal infiltrate. There is a severe wedge compression fracture mid to upper thoracic spine. Diffuse osteopenia/osteoporosis. This fracture appears to be present on the August 12, 2016 exam Electronically signed by: Bam Dixon MD 02/24/2017 12:41 PM CDT
[2017-02-24] MEDS ORDERED: MAGNESIUM SULFATE PREMIX 2GM 2 GM in PREMIX BAG 1 BAG IVPB ONE (13:26)
[2017-02-24] MEDS ORDERED: SODIUM CHLORIDE 0.9% 1000ML 1,000 ML IVS ONE (13:26)
[2017-02-24] MEDS ORDERED: MAGNESIUM SULFATE PREMIX 2GM 50 ML IVPB ONE (13:42)
--- NOTE | 2017-02-24 14:30 | ED.PDOC ---
History of Present Illness - General Chief Complaint: General Stated Complaint: weakness Time Seen by Provider: 02/24/17 12:09 Source: patient Exam Limitations: no limitations - History of Present Illness Initial Comments: The patient is a 71-year-old male presenting to the emergency room secondary to feeling of progressive generalized weakness and fatigue over the last month. He is a diabetic but has not been checking his blood sugars. He does take multiple medications. No fevers. No focal neurological deficits. No syncope. He has had several episodes of dizziness. Symptoms have gotten worse over the last few days. No rash. No chest pain. No shortness of breath except with exertion. Timing/Duration: constant, getting worse Severity: moderate Improving Factors: nothing Worsening Factors: rest Associated Symptoms: malaise, weakness Allergies/Adverse Reactions: Allergies NO KNOWN ALLERGY Allergy (Verified 02/24/17 12:25) Home Medications: Ambulatory Orders Glimepiride 4 mg PO BID 06/16/16 Lisinopril 20 mg PO BID 06/16/16 Metformin HCl 1,000 mg PO BID 06/16/16 Trazodone HCl 150 mg PO BEDTIME 06/16/16 Furosemide 40 mg PO DAILY 07/30/16 Aspirin [[facility] Low Dose Aspiri] 81 mg PO DAILY 09/09/16 Carvedilol 12.5 mg PO BID 09/09/16 Ticagrelor [Brilinta] 90 mg PO BID 09/09/16 HYDROcodone 10MG/APAP 325MG [Ennis 10/325] 2 tab PO TID 11/09/16 Ferrous Gluconate [Fergon] 27 mg PO DAILY 02/24/17 Levothyroxine Sodium [Synthroid] 50 mcg PO DAILY #30 tab 02/24/17 Multiple Vitamin [Multi-Vitamin] 1 tab PO DAILY 02/24/17 Review of Systems - Review of Systems Constitutional: States: malaise, weakness EENTM: States: no symptoms reported Respiratory: States: short of breath - ith exertion only Cardiology: States: no symptoms reported Gastrointestinal/Abdominal: States: no symptoms reported Genitourinary: States: no symptoms reported Musculoskeletal: States: no symptoms reported Skin: States: no symptoms reported Neurological: States: anxiety, headache - mild intermittent, weakness - generalized Endocrine: States: excessive sweating - intermittent Hematologic/Lymphatic: States: no symptoms reported All other Systems: No Change from Baseline Past Medical History (General) - Patient Medical History Hx Stroke: No Hx Dementia: Yes Hx of COPD: Yes Hx Cardiac Disorders: Yes - stents placed, OK Hx Congestive Heart Failure: Yes Hx Pacemaker: Yes Hx Hypertension: Yes Hx Diabetes: Yes Hx Gastroesophageal Reflux: Yes Hx MRSA: No Surgical History: other - Vaccination History Hx Tetanus, Diphtheria Vaccination: No Hx Influenza Vaccination: Yes Hx Pneumococcal Vaccination: Yes - Social History Hx Tobacco Use: Yes - e cigarette Hx Alcohol Use: No Hx Substance Use: No Hx Substance Use Treatment: No Hx Depression: No Hx Physical Abuse: No Hx Emotional Abuse: No Hx Suspected Abuse: No - Activities of Daily Living Hospice Agency (if applicable):: None - Female History Patient is a Female of Child Bearing Age (10 -59 yrs old): No Patient : No Family Medical History - Family History Father Family History: Unknown Living Status: Unknown Hx Cardiac Disease: Yes - dad-mi age 61 Physical Exam - Physical Exam General Appearance: Alert, Comfortable, No apparent distress Eye Exam: bilateral normal Ears, Nose, Throat: hearing grossly normal, normal ENT inspection, normal pharynx Neck: non-tender, full range of motion, supple Respiratory: chest non-tender, lungs clear, normal breath sounds, no respiratory distress, no accessory muscle use Cardiovascular/Chest: normal peripheral pulses, regular rate, rhythm, no edema Peripheral Pulses: radial,right: 2+, radial,left: 2+, dorsalis pedis,right: 1+, dorsalis pedis,left: 1+ Gastrointestinal/Abdominal: non tender, soft Rectal Exam: deferred Back Exam: normal inspection, no CVA tenderness Extremity: normal range of motion, non-tender, normal inspection, no pedal edema , no calf tenderness, normal capillary refill 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 the patient has several issues that are ongoing that may be contributing to this. He is significantly dehydrated with acute renal failure. He needs to reduce his Lasix to 40 mg every Wednesday, Wednesday, Wednesday and Wednesday. He is to hold the Lasix the other days of the week. He did receive a liter of IV fluids here. Additionally he does have some hypomagnesemia and received a dose of magnesium here. This needs to be followed with lab work in 1-2 weeks. This may correct with a reduction in the Lasix dose. Additionally the patient does have significant hypoglycemic episodes as witnessed here. He does need to record his blood sugars 4 times a day, before breakfast, lunch, supper and bedtime. He needs to take these numbers to his primary care doctor to adjust his diabetes medications if necessary. The patient also has worsening hypothyroidism. TSH was 12 today. He will be placed on 50 g of Synthroid daily for now. This will of course need to be followed. Additionally he does need to hold his pravastatin for the next week while the above issues are being lined out. The patient has agreed to comply. ER warnings were given. He should follow up with his primary care doctor in 1 week otherwise. - Results/Orders Results/Orders: 02/24/17 12:30 EKG STAT shows a paced ventricular rhythm at 60 bpm. chest x-ray shows no evidence of overt fluid overload. Chronic changes only. Laboratory Results - last 24 hr 02/24/17 02/24/17 02/24/17 12:30 12:30 12:30 WBC 12.3 H RBC 3.80 L Hgb 11.3 L Hct 33.5 L MCV 88.2 MCH 29.7 MCHC 33.8 RDW 14.6 H Plt Count 250 MPV 7.4 Absolute Neuts (auto) 9.80 H Absolute Lymphs (auto) 1.30 Absolute Monos (auto) 0.70 Absolute Eos (auto) 0.40 Absolute Basos (auto) 0.10 Neutrophils % 80.3 H Lymphocytes % 10.4 L Monocytes % 5.5 Eosinophils % 3.2 Basophils % 0.6 PT 10.9 INR 0.960 PTT (SP) 30.6 D-Dimer, Quantitative < 200 Sodium 139 Potassium 4.2 Chloride 101 Carbon Dioxide 24 Anion Gap 18.2 H BUN 30 H Creatinine 1.55 H BUN/Creatinine Ratio 19.4 POC Glucose Random Glucose 47 L Serum Osmolality 280.9 Calcium 8.3 L Magnesium 1.6 L Total Bilirubin 0.3 AST 23 ALT 18 Alkaline Phosphatase 36 L Creatine Kinase 41 CK-MB (CK-2) 1.2 CK-MB (CK-2) % Not Reportable Troponin I < 0.02 B-Natriuretic Peptide 167.0 H Serum Total Protein 6.9 Albumin 4.2 Globulin 2.7 Albumin/Globulin Ratio 1.6 Amylase 100 TSH 12.31 H Urine Color Urine Appearance Urine pH Ur Specific [place] Urine Protein Urine Glucose (UA) Urine Ketones Urine Blood Urine Nitrite Urine Bilirubin Urine Urobilinogen Ur Leukocyte Esterase Urine RBC Urine WBC Ur Epithelial Cells Urine Bacteria 02/24/17 02/24/17 12:47 14:15 WBC RBC Hgb Hct MCV MCH MCHC RDW Plt Count MPV Absolute Neuts (auto) Absolute Lymphs (auto) Absolute Monos (auto) Absolute Eos (auto) Absolute Basos (auto) Neutrophils % Lymphocytes % Monocytes % Eosinophils % Basophils % PT INR PTT (SP) D-Dimer, Quantitative Sodium Potassium Chloride Carbon Dioxide Anion Gap BUN Creatinine BUN/Creatinine Ratio POC Glucose 139 H Random Glucose Serum Osmolality Calcium Magnesium Total Bilirubin AST ALT Alkaline Phosphatase Creatine Kinase CK-MB (CK-2) CK-MB (CK-2) % Troponin I B-Natriuretic Peptide Serum Total Protein Albumin Globulin Albumin/Globulin Ratio Amylase TSH Urine Color Yellow Urine Appearance Clear Urine pH 5.0 Ur Specific [place] 1.015 Urine Protein Negative Urine Glucose (UA) Negative Urine Ketones Trace Urine Blood Negative Urine Nitrite Negative Urine Bilirubin Negative Urine Urobilinogen 0.2 Ur Leukocyte Esterase Negative Urine RBC 0 Urine WBC 0-1 Ur Epithelial Cells 0-1 Urine Bacteria 0 Departure - Departure Clinical Impression: Dehydration, Hypomagnesemia, Hypoglycemia Acute renal failure Qualifiers: Acute renal failure type: unspecified Qualified Code(s): N17.9 - Acute kidney failure, unspecified Hypothyroidism Qualifiers: Hypothyroidism type: unspecified Qualified Code(s): E03.9 - Hypothyroidism, unspecified Disposition: Discharge to Home or Self Care Condition: Fair Departure Forms: ED Discharge - Pt. Copy, Patient Portal Self Enrollment Instructions: DI for Dehydration -- Adult, DI for Hypoglycemia, DI for Hypothyroidism Diet: diabetic diet Activity: increase activity as tolerated Referrals: Mac Yun MD [Primary Care Provider] - 1-2 Weeks Prescriptions: Levothyroxine Sodium [Synthroid] 50 mcg PO DAILY #30 tab Home Medications: Ambulatory Orders Glimepiride 4 mg PO BID 06/16/16 Lisinopril 20 mg PO BID 06/16/16 Metformin HCl 1,000 mg PO BID 06/16/16 Trazodone HCl 150 mg PO BEDTIME 06/16/16 Furosemide 40 mg PO DAILY 07/30/16 Aspirin [[facility] Low Dose Aspiri] 81 mg PO DAILY 09/09/16 Carvedilol 12.5 mg PO BID 09/09/16 Ticagrelor [Brilinta] 90 mg PO BID 09/09/16 HYDROcodone 10MG/APAP 325MG [[place]nis 10325] 2 tab PO TID 11/09/16 Ferrous Gluconate [Fergon] 27 mg PO DAILY 02/24/17 Levothyroxine Sodium [Synthroid] 50 mcg PO DAILY #30 tab 02/24/17 Multiple Vitamin [Multi-Vitamin] 1 tab PO DAILY 02/24/17 Additional Instructions: the patient is a 71-year-old male presenting with fatigue and generalized weakness progressive over the last month. the patient has several issues that are ongoing that may be contributing to this. He is significantly dehydrated with acute renal failure. He needs to reduce his Lasix to 40 mg every Wednesday, Wednesday, Wednesday and Wednesday. He is to hold the Lasix the other days of the week. He did receive a liter of IV fluids here. Additionally he does have some hypomagnesemia and received a dose of magnesium here. This needs to be followed with lab work in 1-2 weeks. This may correct with a reduction in the Lasix dose. Additionally the patient does have significant hypoglycemic episodes as witnessed here. He does need to record his blood sugars 4 times a day, before breakfast, lunch, supper and bedtime. He needs to take these numbers to his primary care doctor to adjust his diabetes medications if necessary. The patient also has worsening hypothyroidism. TSH was 12 today. He will be placed on 50 g of Synthroid daily for now. This will of course need to be followed. Additionally he does need to hold his pravastatin for the next week while the above issues are being lined out. The patient has agreed to comply. ER warnings were given. He should follow up with his primary care doctor in 1 week otherwise.
[2017-02-24 16:15] VITALS: BP 123/67; TEMP 96.7; O2SAT 97
== END 2017-02-24 16:00 | disposition home or self-care (01) ==
LOC: ER 11:57
DX: N17.9 Acute kidney failure, unspecified (principal); E86.0 Dehydration; E83.42 Hypomagnesemia; E11.649 Type 2 diabetes mellitus with hypoglycemia without coma; E03.9 Hypothyroidism, unspecified; I25.2 Old myocardial infarction; J44.9 Chronic obstructive pulmonary disease, unspecified; F03.90 Unspecified dementia, unspecified severity, without behavioral disturbance, psychotic disturbance, mood disturbance, and anxiety; I50.9 Heart failure, unspecified; I11.0 Hypertensive heart disease with heart failure; K21.9 Gastro-esophageal reflux disease without esophagitis; F17.210 Nicotine dependence, cigarettes, uncomplicated; Z95.0 Presence of cardiac pacemaker; Z95.5 Presence of coronary angioplasty implant and graft
CPT/HCPCS: 36415; 36416; 71020; 80053; 81001; 82150; 82550; 82553; 82948; 83735; 83880; 84443; 84484; 85025; 85379; 85610; 85730; 93005; J3475; J7030

== ENCOUNTER 2017-03-09 07:20 | Emergency (ER) | payer MEDICARE ==
[2017-03-09 07:37] VITALS: TEMP 97.7
[2017-03-09] MEDS ORDERED: IPRATROPIUM/ALBUTEROL 3 ML VIAL NEB ONE (07:43)
--- NOTE | 2017-03-09 08:34 | RAD ---
EXAM DESCRIPTION: Abdomen Flat Upright CLINICAL HISTORY: 71 years Male, sob COMPARISON: None. FINDINGS: Postoperative changes in the mediastinum and a multilead cardiac pacemaker are only partially visualized. The heart is enlarged. The lung bases are unremarkable. There is no free subdiaphragmatic gas or intra-abdominal air-fluid level. The bowel gas pattern is nonobstructive. Postoperative changes are noted in the right lower quadrant. There are mild degenerative changes in the lumbar spine at several levels. IMPRESSION: Moderate amount of colonic stool and gas, but no obstruction, pneumoperitoneum or other acute intra-abdominal abnormality. Electronically signed by: Dominik Herrera MD 03/09/2017 8:33 AM CDT Workstation: [id number]
--- NOTE | 2017-03-09 08:44 | RAD ---
EXAM DESCRIPTION: Chest,2 Views CLINICAL HISTORY: sob COMPARISON: February 24, 2017 FINDINGS: A dual-lead cardiac pacemaker remains in place. Again seen are postoperative changes in the mediastinum. The cardiac mediastinal silhouette is otherwise unremarkable. There is no airspace consolidation. Mild subsegmental atelectasis or scarring is noted in both lung bases. There is chronic blunting of the left costophrenic angle likely related to pleural thickening or scarring, less likely tiny chronic left-sided effusion. There is an old mid thoracic vertebral body compression fracture. No acute fracture or pneumothorax. The lungs appear hyperinflated. IMPRESSION: Postoperative changes in the mediastinum and probable COPD, but no acute intrathoracic abnormality. Old mid thoracic vertebral body compression fracture. Electronically signed by: Dominik Herrera MD 03/09/2017 8:43 AM CDT Workstation: [id number]
--- NOTE | 2017-03-09 09:19 | ED.PDOC ---
History of Present Illness - General Chief Complaint: General Stated Complaint: SOB, loose stools, blood sugar issue Time Seen by Provider: 03/09/17 07:31 Source: patient Exam Limitations: no limitations - History of Present Illness Initial Comments: the patient is a 71-year-old male presenting to the emergency room secondary to persistent persistent fatigue and mild dizziness. The patient was seen a week or 2 ago and was found to have acute renal failure as well as hypoglycemic episodes. He also had a low magnesium level of the time. The patient developed an episode of mild generalized weakness and a feeling of dyspnea this morning along with some dizziness. He does wear oxygen at night at home. He checked his blood sugar and it was around 60. He had a bite of a candy bar and came up here. He has also been complaining of one to 2 episodes of diarrhea for the last month or 2. The patient was found to be mildly hypothyroid at his last visit here and was started on Synthroid 50 g daily. The patient does also take hydrocodone trazodone which may contribute to his dizziness. The patient has never been tested for obstructive sleep apnea. Timing/Duration: unsure Severity: moderate Improving Factors: nothing Worsening Factors: nothing Associated Symptoms: loss of appetite, malaise, shortness of breath, weakness Allergies/Adverse Reactions: Allergies NO KNOWN ALLERGY Allergy (Verified 03/09/17 07:28) Home Medications: Ambulatory Orders Glimepiride 4 mg PO BID 06/16/16 Lisinopril 20 mg PO BID 06/16/16 Metformin HCl 1,000 mg PO BID 06/16/16 Trazodone HCl 150 mg PO BEDTIME 06/16/16 Furosemide 40 mg PO DAILY 07/30/16 Aspirin [[place] Low Dose Aspiri] 81 mg PO DAILY 09/09/16 Carvedilol 12.5 mg PO BID 09/09/16 Ticagrelor [Brilinta] 90 mg PO BID 09/09/16 HYDROcodone 10MG/APAP 325MG [[place] [address]] 2 tab PO TID 11/09/16 Ferrous Gluconate [Fergon] 27 mg PO DAILY 02/24/17 Levothyroxine Sodium [Synthroid] 50 mcg PO DAILY #30 tab 02/24/17 Multiple Vitamin [Multi-Vitamin] 1 tab PO DAILY 02/24/17 Pravastatin Sodium 40 mg PO BEDTIME 03/09/17 Review of Systems - Review of Systems Constitutional: States: malaise EENTM: States: no symptoms reported Respiratory: States: short of breath - primarily with activity. He reports some shortness of breath today but his oxygen saturations are 100% on room air Cardiology: States: no symptoms reported Gastrointestinal/Abdominal: States: diarrhea Genitourinary: States: no symptoms reported Musculoskeletal: States: no symptoms reported Skin: States: no symptoms reported Neurological: States: anxiety Endocrine: States: no symptoms reported Hematologic/Lymphatic: States: no symptoms reported All other Systems: No Change from Baseline Past Medical History (General) - Patient Medical History Hx Stroke: No Hx Dementia: Yes Hx of COPD: Yes Hx Cardiac Disorders: Yes - stents placed, [place] Hx Congestive Heart Failure: Yes Hx Pacemaker: Yes Hx Hypertension: Yes Hx Diabetes: Yes Hx Gastroesophageal Reflux: Yes Hx MRSA: No Surgical History: appendectomy, coronary bypass surgery, pacemaker, tonsillectomy, other - Vaccination History Hx Tetanus, Diphtheria Vaccination: No Hx Influenza Vaccination: Yes Hx Pneumococcal Vaccination: Yes - Social History Hx Tobacco Use: Yes - e cigarette Hx Alcohol Use: No Hx Substance Use: No Hx Substance Use Treatment: No Hx Depression: No Hx Physical Abuse: No Hx Emotional Abuse: No Hx Suspected Abuse: No - Female History Patient : No Family Medical History - Family History Father Family History: Unknown Living Status: Unknown Hx Cardiac Disease: Yes - dad-mi age 61 Physical Exam - Physical Exam General Appearance: Alert, Anxious, No apparent distress Eye Exam: bilateral normal Ears, Nose, Throat: hearing grossly normal, normal ENT inspection, normal pharynx Neck: non-tender, full range of motion, supple Respiratory: chest non-tender, lungs clear, normal breath sounds, no respiratory distress, no accessory muscle use Cardiovascular/Chest: normal peripheral pulses, no edema, other - regular rate Peripheral Pulses: radial,right: 2+, radial,left: 2+, dorsalis pedis,right: 2+, dorsalis pedis,left: 2+ Gastrointestinal/Abdominal: non tender, soft Rectal Exam: deferred Back Exam: no CVA tenderness Extremity: normal range of motion, non-tender, no pedal edema, no calf tenderness, normal capillary refill 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, alert, normal mood/affect - xcept that he is anxious, oriented x 3 Skin Exam: normal color Comments: Vital Signs - 8 hr 03/09/17 03/09/17 03/09/17 07:23 07:30 07:42 Temperature 97.7 F Pulse Rate [ 60 64 pulse ox] Respiratory 12 12 Rate Blood Pressure 154/80 133/64 [right brachial ] O2 Sat by Pulse 100 Oximetry 03/09/17 03/09/17 08:20 09:12 Temperature Pulse Rate [ 60 pulse ox] Respiratory 12 Rate Blood Pressure 156/60 147/67 [right brachial ] O2 Sat by Pulse 97 96 Oximetry Progress - Progress Progress: 03/09/17 09:22 the patient is a 71-year-old male presenting to the emergency room secondary to fatigue and dizziness. The patient has a similar set of problems to his last visit. The patient is in acute renal failure and he needs to go ahead and make the change to his Lasix dose as he was instructed last time. He needs to take the Lasix dose only every Wednesday and Wednesday. Additionally he needs to discontinue the metformin until his renal function has returned to normal. He still has some hypomagnesemia which may be improved with a dose of milk of magnesia here today but also may be improved with a reduction in the Lasix. This will need to be rechecked in a week or 2. The patient has constipation and is receiving a dose of milk of magnesia here today. The patient has hypothyroidism and was started on Synthroid a week or 2 ago. This will need to be followed up in a month or 2. The patient has recurrent hypoglycemic episodes. Discontinuing the metformin may help with this. Additionally he should reduce his glimepiride to an a.m. dose only. Needs to record his blood sugars carefully and follow this up with his primary care doctor. He needs to have follow-up in a week or 2 to make sure his renal function is improving. He had a low bicarbonate level on his blood work today which may correct with improvement in renal function. If it does not then consideration towards testing for obstructive sleep apnea should be given. Additionally while the patient is somewhat compromised, he should consider taking half doses of his trazodone and hydrocodone as these may be complicating the fatigue and dizziness issues. ER warnings were given. He should follow-up with his primary care doctor next week. if not improving with these measures, then additional workup may be warranted with his primary care doctor. - Results/Orders Results/Orders: Laboratory Tests 03/09/17 03/09/17 03/09/17 07:57 07:57 07:57 WBC 8.2 RBC 3.59 L Hgb 10.6 L Hct 31.3 L MCV 87.1 MCH 29.5 MCHC 33.9 RDW 14.3 Plt Count 243 MPV 7.3 L Absolute Neuts (auto) 6.40 Absolute Lymphs (auto) 1.00 Absolute Monos (auto) 0.50 Absolute Eos (auto) 0.30 Absolute Basos (auto) 0.10 Neutrophils % 77.6 Lymphocytes % 12.1 L Monocytes % 6.2 Eosinophils % 3.4 Basophils % 0.7 PT 10.5 INR 0.930 PTT (SP) 32.6 Sodium 138 Potassium 4.4 Chloride 105 Carbon Dioxide 19 L Anion Gap 18.4 H BUN 27 H Creatinine 1.42 H BUN/Creatinine Ratio 19.0 Random Glucose 73 Serum Osmolality 279.4 Calcium 9.0 Magnesium 1.5 L Total Bilirubin 0.3 AST 20 ALT 15 Alkaline Phosphatase 39 L Creatine Kinase 43 CK-MB (CK-2) 1.3 CK-MB (CK-2) % Not Reportable Troponin I < 0.02 B-Natriuretic Peptide 163.0 H Serum Total Protein 7.0 Albumin 4.2 Globulin 2.8 Albumin/Globulin Ratio 1.5 Amylase 68 Lipase 25 Urine Color Urine Appearance Urine pH Ur Specific [place] Urine Protein Urine Glucose (UA) Urine Ketones Urine Blood Urine Nitrite Urine Bilirubin Urine Urobilinogen Ur Leukocyte Esterase Urine RBC Urine WBC Ur Epithelial Cells Urine Bacteria 03/09/17 08:20 WBC RBC Hgb Hct MCV MCH MCHC RDW Plt Count MPV Absolute Neuts (auto) Absolute Lymphs (auto) Absolute Monos (auto) Absolute Eos (auto) Absolute Basos (auto) Neutrophils % Lymphocytes % Monocytes % Eosinophils % Basophils % PT INR PTT (SP) Sodium Potassium Chloride Carbon Dioxide Anion Gap BUN Creatinine BUN/Creatinine Ratio Random Glucose Serum Osmolality Calcium Magnesium Total Bilirubin AST ALT Alkaline Phosphatase Creatine Kinase CK-MB (CK-2) CK-MB (CK-2) % Troponin I B-Natriuretic Peptide Serum Total Protein Albumin Globulin Albumin/Globulin Ratio Amylase Lipase Urine Color Yellow Urine Appearance Clear Urine pH 5.5 Ur Specific [place] 1.010 Urine Protein Negative Urine Glucose (UA) Negative Urine Ketones Negative Urine Blood Negative Urine Nitrite Negative Urine Bilirubin Negative Urine Urobilinogen 0.2 Ur Leukocyte Esterase Negative Urine RBC 0 Urine WBC 0 Ur Epithelial Cells 0 Urine Bacteria 0 chest x-ray shows no infiltrates. Only chronic changes. Abdominal x-ray shows constipation. eKG shows a ventricularly paced rhythm at 60 bpm Departure - Departure Clinical Impression: Hypoglycemia, Hypomagnesemia Acute renal failure Qualifiers: Acute renal failure type: unspecified Qualified Code(s): N17.9 - Acute kidney failure, unspecified Constipation Qualifiers: Constipation type: unspecified constipation type Qualified Code(s): K59.00 - Constipation, unspecified Disposition: Discharge to Home or Self Care Condition: Fair Departure Forms: ED Discharge - Pt. Copy, Patient Portal Self Enrollment Instructions: DI for Dehydration -- Adult, DI for Constipation, DI for Hypoglycemia Diet: diabetic diet Referrals: Mac Yun MD [Primary Care Provider] - 1-2 Weeks Home Medications: Ambulatory Orders Glimepiride 4 mg PO BID 06/16/16 Lisinopril 20 mg PO BID 06/16/16 Metformin HCl 1,000 mg PO BID 06/16/16 Trazodone HCl 150 mg PO BEDTIME 06/16/16 Furosemide 40 mg PO DAILY 07/30/16 Aspirin [[facility] [place] Low Dose Aspiri] 81 mg PO DAILY 09/09/16 Carvedilol 12.5 mg PO BID 09/09/16 Ticagrelor [Brilinta] 90 mg PO BID 09/09/16 HYDROcodone 10MG/APAP 325MG [[place] 10/325] 2 tab PO TID 11/09/16 Ferrous Gluconate [Fergon] 27 mg PO DAILY 02/24/17 Levothyroxine Sodium [Synthroid] 50 mcg PO DAILY #30 tab 02/24/17 Multiple Vitamin [Multi-Vitamin] 1 tab PO DAILY 02/24/17 Pravastatin Sodium 40 mg PO BEDTIME 03/09/17 Additional Instructions: the patient is a 71-year-old male presenting to the emergency room secondary to fatigue and dizziness. The patient has a similar set of problems to his last visit. The patient is in acute renal failure and he needs to go ahead and make the change to his Lasix dose as he was instructed last time. He needs to take the Lasix dose only every Wednesday and Wednesday. Additionally he needs to discontinue the metformin until his renal function has returned to normal. He still has some hypomagnesemia which may be improved with a dose of milk of magnesia here today but also may be improved with a reduction in the Lasix. This will need to be rechecked in a week or 2. The patient has constipation and is receiving a dose of milk of magnesia here today. The patient has hypothyroidism and was started on Synthroid a week or 2 ago. This will need to be followed up in a month or 2. The patient has recurrent hypoglycemic episodes. Discontinuing the metformin may help with this. Additionally he should reduce his glimepiride to an a.m. dose only. Needs to record his blood sugars carefully and follow this up with his primary care doctor. He needs to have follow-up in a week or 2 to make sure his renal function is improving. He had a low bicarbonate level on his blood work today which may correct with improvement in renal function. If it does not then consideration towards testing for obstructive sleep apnea should be given. Additionally while the patient is somewhat compromised, he should consider taking half doses of his trazodone and hydrocodone as these may be complicating the fatigue and dizziness issues. ER warnings were given. He should follow-up with his primary care doctor next week. if not improving with these measures, then additional workup may be warranted with his primary care doctor.
[2017-03-09] MEDS ORDERED: MAGNESIUM HYDROXIDE 30 ML UD PO ONE (09:28)
[2017-03-09 09:52] VITALS: BP 155/69; O2SAT 100
== END 2017-03-09 09:45 | disposition home or self-care (01) ==
LOC: ER 07:20
DX: K59.00 Constipation, unspecified (principal); E83.42 Hypomagnesemia; N17.9 Acute kidney failure, unspecified; E11.649 Type 2 diabetes mellitus with hypoglycemia without coma; J44.9 Chronic obstructive pulmonary disease, unspecified; K21.9 Gastro-esophageal reflux disease without esophagitis; I11.0 Hypertensive heart disease with heart failure; I50.9 Heart failure, unspecified; I25.2 Old myocardial infarction; F17.210 Nicotine dependence, cigarettes, uncomplicated; Z98.61 Coronary angioplasty status; Z79.84 Long term (current) use of oral hypoglycemic drugs; Z79.899 Other long term (current) drug therapy; Z79.82 Long term (current) use of aspirin; Z95.1 Presence of aortocoronary bypass graft; Z95.0 Presence of cardiac pacemaker
CPT/HCPCS: 36415; 71020; 74010; 80053; 81001; 82150; 82550; 82553; 83690; 83735; 83880; 84443; 84484; 85025; 85610; 85730; J7620

== ENCOUNTER 2017-05-22 13:55 | Emergency (ER) | payer MEDICARE ==
[2017-05-22 14:09] VITALS: TEMP 96.8
--- NOTE | 2017-05-22 15:26 | ED.PDOC ---
History of Present Illness - General Chief Complaint: Cardiovascular Problem Stated Complaint: heart rate going up and down Time Seen by Provider: 05/22/17 14:03 Source: patient Exam Limitations: no limitations - History of Present Illness Initial Comments: The patient is a 71-year-old male presenting to the emergency room secondary tofeeling like his heart rate is been varying too much. The patient has a pacemaker and is on a beta jasper. He reports that his heart rate is normally in the 60s. He checked it earlier today after he had been up and around and active and it was almost 110 bpm. Here today it isbetween 60 and 90 bpm. He does have occasional PACs and PVCs but largely he remains in a sinus rhythm No evidence of overt atrial fibrillation. No rapid ventricular rate at any point. He is asymptomatic. Timing/Duration: unsure Severity: mild Improving Factors: nothing Worsening Factors: nothing Associated Symptoms: denies symptoms Allergies/Adverse Reactions: Allergies NO KNOWN ALLERGY Allergy (Verified 03/09/17 07:28) Home Medications: Ambulatory Orders Glimepiride 4 mg PO BID 06/16/16 Lisinopril 20 mg PO BID 06/16/16 Metformin HCl 1,000 mg PO BID 06/16/16 Trazodone HCl 150 mg PO BEDTIME 06/16/16 Furosemide 40 mg PO DAILY 07/30/16 Aspirin [[facility] Low Dose Aspiri] 81 mg PO DAILY 09/09/16 Carvedilol 12.5 mg PO BID 09/09/16 Ticagrelor [Brilinta] 90 mg PO BID 09/09/16 HYDROcodone 10MG/APAP 325MG [[place] 10/325] 2 tab PO TID 11/09/16 Ferrous Gluconate [Fergon] 27 mg PO DAILY 02/24/17 Levothyroxine Sodium [Synthroid] 50 mcg PO DAILY #30 tab 02/24/17 Multiple Vitamin [Multi-Vitamin] 1 tab PO DAILY 02/24/17 Pravastatin Sodium 40 mg PO BEDTIME 03/09/17 Review of Systems - Review of Systems Constitutional: States: no symptoms reported EENTM: States: no symptoms reported Respiratory: States: no symptoms reported Cardiology: States: no symptoms reported Gastrointestinal/Abdominal: States: no symptoms reported Genitourinary: States: no symptoms reported Musculoskeletal: States: no symptoms reported Skin: States: no symptoms reported Neurological: States: no symptoms reported Endocrine: States: no symptoms reported All other Systems: No Change from Baseline Past Medical History (General) - Patient Medical History Hx Stroke: No Hx Dementia: Yes Hx of COPD: Yes Hx Cardiac Disorders: Yes - stents placed, [place] Hx Congestive Heart Failure: No Hx Pacemaker: Yes Hx Hypertension: Yes Hx Diabetes: Yes Hx Gastroesophageal Reflux: Yes Hx MRSA: No Surgical History: coronary bypass surgery, pacemaker - Vaccination History Hx Tetanus, Diphtheria Vaccination: No Hx Influenza Vaccination: Yes Hx Pneumococcal Vaccination: Yes - Social History Hx Tobacco Use: Yes - uses E-cigs now Hx Alcohol Use: No Hx Substance Use: No Hx Substance Use Treatment: No Hx Depression: No Hx Physical Abuse: No Hx Emotional Abuse: No Hx Suspected Abuse: No - Female History Patient : No Family Medical History - Family History Father Family History: Unknown Living Status: Unknown Hx Cardiac Disease: Yes - dad-mi age 61 Physical Exam - Physical Exam General Appearance: Alert, Comfortable, No apparent distress Eye Exam: bilateral normal Ears, Nose, Throat: hearing grossly normal, normal ENT inspection, normal pharynx Neck: non-tender, full range of motion Respiratory: chest non-tender, lungs clear, normal breath sounds, no respiratory distress, no accessory muscle use Cardiovascular/Chest: normal peripheral pulses, regular rate, rhythm, no edema Peripheral Pulses: radial,right: 2+, radial,left: 2+, dorsalis pedis,right: 2+, dorsalis pedis,left: 2+ Gastrointestinal/Abdominal: non tender, soft Rectal Exam: deferred Back Exam: normal inspection, no CVA tenderness, no vertebral tenderness Extremity: normal range of motion, non-tender, normal inspection, no pedal edema , normal capillary refill 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 Lab work does not show any concerning etiology. He does have some very mild hypomagnesemia. I recommend that he follow-up with his primary care doctor and have this rechecked in 2 weeks. I'm not going to write for any supplement at this time. 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 The higher heart rate noted today by the patient is likely due to his exertion. ER warnings were given. - Results/Orders Results/Orders: Laboratory Tests 05/22/17 05/22/17 05/22/17 14:23 14:23 14:23 WBC 7.4 RBC 3.62 L Hgb 10.7 L Hct 31.6 L MCV 87.2 MCH 29.5 MCHC 33.8 RDW 14.7 H Plt Count 278 MPV 7.7 Absolute Neuts (auto) 5.60 Absolute Lymphs (auto) 1.30 Absolute Monos (auto) 0.40 Absolute Eos (auto) 0.10 Absolute Basos (auto) 0.10 Neutrophils % 74.9 Lymphocytes % 17.0 L Monocytes % 5.9 Eosinophils % 1.1 Basophils % 1.1 PT 11.4 INR 1.010 PTT (SP) 31.4 Sodium 139 Potassium 3.8 Chloride 104 Carbon Dioxide 26 Anion Gap 12.8 BUN 17 Creatinine 1.29 BUN/Creatinine Ratio 13.2 Random Glucose 56 L Serum Osmolality 276.7 Calcium 9.2 Magnesium 1.7 L Total Bilirubin 0.4 AST 17 ALT 13 Alkaline Phosphatase 37 L Creatine Kinase 68 CK-MB (CK-2) 1.2 CK-MB (CK-2) % Not Reportable Troponin I 0.03 B-Natriuretic Peptide 192.0 H Serum Total Protein 6.7 Albumin 4.1 Globulin 2.6 Albumin/Globulin Ratio 1.6 TSH 2.57 EKG shows sinus rhythm with a first-degree AV block at a rate of 67 bpmwith intermittent PACs. O2 monitoring does show likely some PVCs as well. There is criteria for LVH. There is mild widening of QRS complex. There is some mild left axis deviation. This is not a paced rhythm. Departure - Departure Clinical Impression: Tachycardia, paroxysmal, Hypomagnesemia Disposition: Discharge to Home or Self Care Condition: Fair Departure Forms: ED Discharge - Pt. Copy, Patient Portal Self Enrollment Diet: regular diet Activity: increase activity as tolerated Referrals: Mac Yun MD [Primary Care Provider] - 1-2 Weeks Home Medications: Ambulatory Orders Glimepiride 4 mg PO BID 06/16/16 Lisinopril 20 mg PO BID 06/16/16 Metformin HCl 1,000 mg PO BID 06/16/16 Trazodone HCl 150 mg PO BEDTIME 06/16/16 Furosemide 40 mg PO DAILY 07/30/16 Aspirin [[facility] Low Dose Aspiri] 81 mg PO DAILY 09/09/16 Carvedilol 12.5 mg PO BID 09/09/16 Ticagrelor [Brilinta] 90 mg PO BID 09/09/16 HYDROcodone 10MG/APAP 325MG [[place] 10/325] 2 tab PO TID 11/09/16 Ferrous Gluconate [Fergon] 27 mg PO DAILY 02/24/17 Levothyroxine Sodium [Synthroid] 50 mcg PO DAILY #30 tab 02/24/17 Multiple Vitamin [Multi-Vitamin] 1 tab PO DAILY 02/24/17 Pravastatin Sodium 40 mg PO BEDTIME 03/09/17 Additional Instructions: the patient is a 71-year-old male presenting secondary concern for a heart rate that is above what his normally is. Lab work does not show any concerning etiology. He does have some very mild hypomagnesemia. I recommend that he follow-up with his primary care doctor and have this rechecked in 2 weeks. I'm not going to write for any supplement at this time. 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 The higher heart rate noted today by the patient is likely due to his exertion. ER warnings were given.
[2017-05-22 15:38] VITALS: BP 152/75; O2SAT 97
== END 2017-05-22 15:37 | disposition home or self-care (01) ==
LOC: ER 13:55
DX: E83.42 Hypomagnesemia (principal); I44.0 Atrioventricular block, first degree; I25.2 Old myocardial infarction; I10 Essential (primary) hypertension; E11.9 Type 2 diabetes mellitus without complications; K21.9 Gastro-esophageal reflux disease without esophagitis; Z95.1 Presence of aortocoronary bypass graft; Z98.61 Coronary angioplasty status; Z95.0 Presence of cardiac pacemaker; Z79.82 Long term (current) use of aspirin; Z79.899 Other long term (current) drug therapy

== ENCOUNTER 2017-06-30 18:46 | Emergency (ER) | payer MEDICARE ==
--- NOTE | 2017-06-30 18:58 | ED.PDOC ---
History of Present Illness - General Chief Complaint: Respiratory Problem Stated Complaint: SOB Time Seen by Provider: 06/30/17 18:47 Source: patient, RN notes reviewed, Vital Signs reviewed Exam Limitations: no limitations - History of Present Illness Initial Comments: Patient comes to ER with c/o SOB that started 2 days ago and is getting worse. + short episode of CP but none currently. + cough, non-productive. Activity makes the SOB worse. Patient with significant cardiac history with NC's, CHF, Bypass surgery and pacemaker. Timing/Duration: days - 2, getting worse Severity: severe Possible Cause: frequent episodes Improving Factors: rest Worsening Factors: movement Associated Symptoms: chest pain, cough Respiratory Risk Factors: other - HX of CHF and CAD Allergies/Adverse Reactions: Allergies NO KNOWN ALLERGY Allergy (Verified 06/30/17 19:09) Home Medications: Ambulatory Orders Glimepiride 4 mg PO BID 06/16/16 Lisinopril 20 mg PO BID 06/16/16 Metformin HCl 1,000 mg PO BID 06/16/16 Trazodone HCl 150 mg PO BEDTIME 06/16/16 Furosemide 40 mg PO DAILY 07/30/16 Aspirin [[facility] Low Dose Aspiri] 81 mg PO DAILY 09/09/16 Carvedilol 12.5 mg PO BID 09/09/16 Ticagrelor [Brilinta] 90 mg PO BID 09/09/16 HYDROcodone 10MG/APAP 325MG [[place] 10/325] 2 tab PO TID 11/09/16 Ferrous Gluconate [Fergon] 27 mg PO DAILY 02/24/17 Levothyroxine Sodium [Synthroid] 50 mcg PO DAILY #30 tab 02/24/17 Multiple Vitamin [Multi-Vitamin] 1 tab PO DAILY 02/24/17 Pravastatin Sodium 40 mg PO BEDTIME 03/09/17 Review of Systems - Review of Systems Constitutional: States: diaphoresis, malaise. Denies: chills, fever EENTM: States: no symptoms reported Respiratory: States: cough, short of breath Cardiology: States: chest pain. Denies: palpitations, syncope Gastrointestinal/Abdominal: States: no symptoms reported Musculoskeletal: States: no symptoms reported Skin: States: no symptoms reported Neurological: States: no symptoms reported All other Systems: No Change from Baseline Past Medical History (General) - Patient Medical History Hx Stroke: No Hx Dementia: Yes Hx of COPD: Yes Hx Cardiac Disorders: Yes - stents placed, NC Hx Congestive Heart Failure: No Hx Pacemaker: Yes Hx Hypertension: Yes Hx Diabetes: Yes Hx Gastroesophageal Reflux: Yes Hx MRSA: No - Vaccination History Hx Tetanus, Diphtheria Vaccination: No Hx Influenza Vaccination: Yes Hx Pneumococcal Vaccination: Yes - Social History Hx Tobacco Use: Yes - uses E-cigs now Hx Alcohol Use: No Hx Substance Use: No Hx Substance Use Treatment: No Hx Depression: No Hx Physical Abuse: No Hx Emotional Abuse: No Hx Suspected Abuse: No - Female History Patient : No Family Medical History - Family History Father Family History: Unknown Living Status: Unknown Hx Cardiac Disease: Yes - dad-mi age 61 Physical Exam - Physical Exam General Appearance: Alert, Ill Appearing, Well Developed, Well Groomed, Well Hydrated, Well Nourished Neck: supple, normal inspection Respiratory: no respiratory distress, decreased breath sounds - bilateral bases Cardiovascular/Chest: regular rate, rhythm, no edema, no gallop, no murmur Peripheral Pulses: dorsalis pedis,right: 2+, dorsalis pedis,left: 2+ Gastrointestinal/Abdominal: normal bowel sounds, non tender, soft, no organomegaly Extremity: non-tender, normal inspection, no pedal edema Neurologic: alert, normal mood/affect, oriented x 3 Skin Exam: pallor Progress - Progress Progress: 06/30/17 20:40 Patient in CHF - does not want to be admitted to hospital. Will give Lasix 40mg IV and recheck cardiac enzymes 3 hours after initial labs. 06/30/17 23:11 Troponin increased from 0.05 to 0.06. Patient still refusing to be admitted to hospital. Will call Family Services Worker, Dr. Cutler, tomorrow. Advised that his symptoms could get worse and he could potentially . He reports that is what they told him last time and he still wants to go home. Advised to double Lasix dose for 3 days - Results/Orders Results/Orders: Laboratory Tests 06/30/17 06/30/17 06/30/17 18:59 18:59 22:09 WBC 7.9 RBC 3.08 L Hgb 9.2 L Hct 27.1 L MCV 88.2 MCH 29.8 MCHC 34.1 RDW 14.6 H Plt Count 294 MPV 7.6 Absolute Neuts (auto) 5.40 Absolute Lymphs (auto) 1.20 Absolute Monos (auto) 0.70 Absolute Eos (auto) 0.50 H Absolute Basos (auto) 0.10 Neutrophils % 69.1 Lymphocytes % 14.7 L Monocytes % 8.4 Eosinophils % 6.8 H Basophils % 1.0 Sodium 135 Potassium 4.7 Chloride 107 Carbon Dioxide 18 L Anion Gap 14.7 BUN 16 Creatinine 1.23 BUN/Creatinine Ratio 13.0 Random Glucose 180 H Serum Osmolality 275.8 Calcium 8.4 Total Bilirubin 0.6 AST 32 ALT 29 Alkaline Phosphatase 56 Creatine Kinase 82 78 CK-MB (CK-2) 1.7 1.8 CK-MB (CK-2) % Not Reportable Not Reportable Troponin I 0.05 0.06 H B-Natriuretic Peptide 1800.0 H* Serum Total Protein 6.4 Albumin 3.5 Globulin 2.9 Albumin/Globulin Ratio 1.2 - EKG/XRAY/CT EKG: Changed from 03/09/17 Comments: First EKG was poor quality and did not show ventricular pacemaker. XRAY: chest - Worsening interstitial thickening consistent with worsening pulm edema per Rad. - Additional EKG/XRAY/Consults EKG #2: Unchanged from 03/09/17 Comments: Ventricular paced - 63 bpm Departure - Departure Clinical Impression: Dyspnea due to congestive heart failure, Elevated troponin Time of Disposition: 23:14 Disposition: Discharge to Home or Self Care Condition: Poor Departure Forms: ED Discharge - Pt. Copy, Patient Portal Self Enrollment Instructions: Cardiac Troponin, DI for Heart Failure Diet: resume usual diet Activity: increase activity as tolerated Referrals: Mac Yun MD [Primary Care Provider] - 1-2 Weeks WENDY CUTLER [Referring] - 1-2 Days Home Medications: Ambulatory Orders Glimepiride 4 mg PO BID 06/16/16 Lisinopril 20 mg PO BID 06/16/16 Metformin HCl 1,000 mg PO BID 06/16/16 Trazodone HCl 150 mg PO BEDTIME 06/16/16 Furosemide 40 mg PO DAILY 07/30/16 Aspirin [[facility] Low Dose Aspiri] 81 mg PO DAILY 09/09/16 Carvedilol 12.5 mg PO BID 09/09/16 Ticagrelor [Brilinta] 90 mg PO BID 09/09/16 HYDROcodone 10MG/APAP 325MG [[place] 10/325] 2 tab PO TID 11/09/16 Ferrous Gluconate [Fergon] 27 mg PO DAILY 02/24/17 Levothyroxine Sodium [Synthroid] 50 mcg PO DAILY #30 tab 02/24/17 Multiple Vitamin [Multi-Vitamin] 1 tab PO DAILY 02/24/17 Pravastatin Sodium 40 mg PO BEDTIME 03/09/17 Additional Instructions: Double Lasix dose for 3 days.
[2017-06-30] MEDS ORDERED: FUROSEMIDE INJ 40 MG/4 ML VIAL IV ONE (19:45)
[2017-06-30 23:14] VITALS: BP 183/63; O2SAT 98
[2017-06-30 23:26] VITALS: TEMP 97.8
--- NOTE | 2017-07-01 09:48 | RAD ---
EXAM DESCRIPTION: Chest,1 View CLINICAL HISTORY: SOB COMPARISON: 03/09/2017 FINDINGS: Single view of the chest is submitted. Cardiac silhouette is enlarged, larger on on the prior exam. There is increased thickening of the interstitial markings bilaterally. There is increased subsegmental atelectasis at the left lung base. Small bilateral pleural effusions have increased. IMPRESSION: Worsening interstitial thickening most consistent with worsening pulmonary edema. Increasing cardiomegaly. Electronically signed by: Juan Brito 06/30/2017 7:57 PM CDT
== END 2017-06-30 23:26 | disposition home or self-care (01) ==
LOC: ER 18:46
DX: I11.0 Hypertensive heart disease with heart failure (principal); I50.9 Heart failure, unspecified; I25.2 Old myocardial infarction; Z95.0 Presence of cardiac pacemaker; J44.9 Chronic obstructive pulmonary disease, unspecified; F03.90 Unspecified dementia, unspecified severity, without behavioral disturbance, psychotic disturbance, mood disturbance, and anxiety; E11.9 Type 2 diabetes mellitus without complications; K21.9 Gastro-esophageal reflux disease without esophagitis; F17.210 Nicotine dependence, cigarettes, uncomplicated; Z79.899 Other long term (current) drug therapy; Z95.1 Presence of aortocoronary bypass graft; Z79.82 Long term (current) use of aspirin
CPT/HCPCS: 36415; 71010; 80053; 82550; 82553; 83880; 84484; 85025; 93005; J1940

== ENCOUNTER 2017-08-11 20:50 | Emergency (ER) | payer MEDICARE ==
[2017-08-11] MEDS ORDERED: methylPREDNISolone SODIUM SUC 125 MG/2 ML VIAL IV ONE (21:02)
[2017-08-11] MEDS ORDERED: IPRATROPIUM/ALBUTEROL 3 ML VIAL NEB ONE (21:09)
--- NOTE | 2017-08-11 22:06 | RAD ---
EXAM DESCRIPTION: Chest,1 View CLINICAL HISTORY: sob COMPARISON: 06/30/2017 FINDINGS: Cardiac silhouette is enlarged but unchanged. There is increased thickening of interstitial markings at both lung bases. No definite consolidations. Electronic cardiac device and leads are again seen. IMPRESSION: Cardiomegaly and mild pulmonary edema. Electronically signed by: Juan Brito 08/11/2017 10:05 PM ENGINE MONITOR
[2017-08-11] MEDS ORDERED: ASPIRIN (CHEWABLE) 81 MG TAB PO ONE (23:38)
--- NOTE | 2017-08-11 23:38 | ED.PDOC ---
History of Present Illness - General Chief Complaint: Cardiovascular Problem Stated Complaint: chest pain Time Seen by Provider: 08/11/17 20:59 Source: patient, RN notes reviewed Exam Limitations: no limitations - History of Present Illness Initial Comments: Jun Mcduffie 71 y/o male brought by ems after they were called by patient having difficulty breathing and chest discomfort while resting at home tonight.Has history of chf,pacemaker,copd Timing/Duration: 1-3 hours Severity: moderate Improving Factors: nothing Worsening Factors: nothing Associated Symptoms: shortness of breath, other - see hpi Allergies/Adverse Reactions: Allergies NO KNOWN ALLERGY Allergy (Verified 08/11/17 21:29) Home Medications: Ambulatory Orders Glimepiride 4 mg PO BID 06/16/16 Lisinopril 20 mg PO BID 06/16/16 Metformin HCl 1,000 mg PO BID 06/16/16 Trazodone HCl 150 mg PO BEDTIME 06/16/16 Furosemide 40 mg PO DAILY 07/30/16 Aspirin [[facility] Low Dose Aspiri] 81 mg PO DAILY 09/09/16 Carvedilol 12.5 mg PO BID 09/09/16 Ticagrelor [Brilinta] 90 mg PO BID 09/09/16 HYDROcodone 10MG/APAP 325MG [[place] 10/325] 2 tab PO TID 11/09/16 Ferrous Gluconate [Fergon] 27 mg PO DAILY 02/24/17 Levothyroxine Sodium [Synthroid] 50 mcg PO DAILY #30 tab 02/24/17 Multiple Vitamin [Multi-Vitamin] 1 tab PO DAILY 02/24/17 Pravastatin Sodium 40 mg PO BEDTIME 03/09/17 Review of Systems - Review of Systems Constitutional: States: no symptoms reported EENTM: States: no symptoms reported Respiratory: States: see HPI Cardiology: States: see HPI Gastrointestinal/Abdominal: States: no symptoms reported Genitourinary: States: no symptoms reported Musculoskeletal: States: no symptoms reported Skin: States: no symptoms reported Neurological: States: no symptoms reported Past Medical History (General) - Patient Medical History Hx Seizures: No Hx Stroke: No Hx Dementia: No Hx Asthma: No Hx of COPD: Yes Hx Cardiac Disorders: Yes Hx Congestive Heart Failure: Yes Hx Pacemaker: No Hx Hypertension: Yes Hx Thyroid Disease: No Hx Diabetes: Yes Hx Gastroesophageal Reflux: No Hx Renal Disease: No Hx Cancer: No Hx of HIV: No Hx MRSA: No Surgical History: coronary bypass surgery, other - cardiac stent - Vaccination History Hx Tetanus, Diphtheria Vaccination: Yes Hx Influenza Vaccination: Yes Hx Pneumococcal Vaccination: Yes - Social History Hx Tobacco Use: Yes Hx Alcohol Use: No Hx Substance Use: No Hx Substance Use Treatment: No Hx Depression: No Hx Physical Abuse: No Hx Emotional Abuse: No Hx Suspected Abuse: No - Female History Patient : No - Triage Comment ED Triage Comment: Presents to ER per [facility] with c/o chest pain with SOB. Lt sided chest apin radiated down Lt arm. No back or Jaw pain states, Family Medical History - Family History Father Family History: Unknown Living Status: Unknown Hx Cardiac Disease: Yes - dad-mi age 61 Physical Exam - Physical Exam General Appearance: Alert, Anxious, Obvious distress Eye Exam: bilateral normal, bilateral other - pale conjunctiva Ears, Nose, Throat: hearing grossly normal, normal ENT inspection, normal pharynx Neck: non-tender, full range of motion, supple Respiratory: chest non-tender, no accessory muscle use, decreased breath sounds Cardiovascular/Chest: normal peripheral pulses, regular rate, rhythm Peripheral Pulses: radial,right: 2+, radial,left: 2+ Gastrointestinal/Abdominal: normal bowel sounds, non tender, soft Rectal Exam: other - declined Extremity: no calf tenderness, pedal edema - +3 bilateral Neurologic: alert, oriented x 3 Skin Exam: normal color, warm/dry Lymphatic: no adenopathy Progress - Progress Progress: 08/11/17 23:43 Last Vital Signs Temp 97.0 F L 08/11/17 21:00 Pulse 83 08/11/17 21:26 Resp 29 H 08/11/17 21:26 BP 158/99 08/11/17 21:26 Pulse Ox 99 08/11/17 21:26 - Results/Orders Results/Orders: Laboratory Tests 08/11/17 08/11/17 21:30 21:30 WBC 8.1 RBC 2.94 L Hgb 8.1 L Hct 24.8 L MCV 84.2 MCH 27.5 MCHC 32.6 L RDW 15.1 H Plt Count 257 MPV 8.1 Absolute Neuts (auto) 6.20 Absolute Lymphs (auto) 0.80 L Absolute Monos (auto) 0.90 H Absolute Eos (auto) 0.10 Absolute Basos (auto) 0.10 Neutrophils % 76.3 Lymphocytes % 10.4 L Monocytes % 11.0 H Eosinophils % 1.5 Basophils % 0.8 PT 15.7 H INR 1.390 PTT (SP) 30.0 Sodium 139 Potassium 2.6 L Chloride 95 L Carbon Dioxide 35 H Anion Gap 11.6 L BUN 15 Creatinine 1.05 BUN/Creatinine Ratio 14.3 Random Glucose 221 H Serum Osmolality 285.2 Calcium 8.3 L Magnesium 1.8 Total Bilirubin 1.7 H Direct Bilirubin 0.7 H Indirect Bilirubin 1.0 H AST 144 H ALT 794 H Alkaline Phosphatase 82 Creatine Kinase 220 H* CK-MB (CK-2) 2.2 CK-MB (CK-2) % Not Reportable Troponin I 0.11 H* B-Natriuretic Peptide 2850.0 H* Serum Total Protein 6.4 Albumin 3.4 Laboratory Tests 08/11/17 08/11/17 08/11/17 21:30 21:30 23:40 WBC 8.1 RBC 2.94 L Hgb 8.1 L Hct 24.8 L MCV 84.2 MCH 27.5 MCHC 32.6 L RDW 15.1 H Plt Count 257 MPV 8.1 Absolute Neuts (auto) 6.20 Absolute Lymphs (auto) 0.80 L Absolute Monos (auto) 0.90 H Absolute Eos (auto) 0.10 Absolute Basos (auto) 0.10 Neutrophils % 76.3 Lymphocytes % 10.4 L Monocytes % 11.0 H Eosinophils % 1.5 Basophils % 0.8 PT 15.7 H INR 1.390 PTT (SP) 30.0 Sodium 139 Potassium 2.6 L Chloride 95 L Carbon Dioxide 35 H Anion Gap 11.6 L BUN 15 Creatinine 1.05 BUN/Creatinine Ratio 14.3 Random Glucose 221 H Serum Osmolality 285.2 Calcium 8.3 L Magnesium 1.8 Total Bilirubin 1.7 H Direct Bilirubin 0.7 H Indirect Bilirubin 1.0 H AST 144 H ALT 794 H Alkaline Phosphatase 82 Creatine Kinase 220 H* CK-MB (CK-2) 2.2 CK-MB (CK-2) % Not Reportable Troponin I 0.11 H* 0.15 H* B-Natriuretic Peptide 2850.0 H* Serum Total Protein 6.4 Albumin 3.4 - EKG/XRAY/CT Comments: pacemaker HR-87 XRAY: chest - cardiomegaly/mild pulmonary edema Departure - Departure Clinical Impression: Abnormal liver enzymes CHF (congestive heart failure) Qualifiers: Congestive heart failure type: combined Congestive heart failure chronicity: acute on chronic Qualified Code(s): I50.43 - Acute on chronic combined systolic (congestive) and diastolic (congestive) heart failure Anemia Qualifiers: Anemia type: unspecified type Qualified Code(s): D64.9 - Anemia, unspecified Time of Disposition: 02:53 Disposition: Transfer to Hospital Condition: Good Departure Forms: Patient Portal Self Enrollment Instructions: DI for Chest Pain Referrals: Mac Yun MD [Primary Care Provider] - 1-2 Weeks Home Medications: Ambulatory Orders Glimepiride 4 mg PO BID 06/16/16 Lisinopril 20 mg PO BID 06/16/16 Metformin HCl 1,000 mg PO BID 06/16/16 Trazodone HCl 150 mg PO BEDTIME 06/16/16 Furosemide 40 mg PO DAILY 07/30/16 Aspirin [[facility] [place] Low Dose Aspiri] 81 mg PO DAILY 09/09/16 Carvedilol 12.5 mg PO BID 09/09/16 Ticagrelor [Brilinta] 90 mg PO BID 09/09/16 HYDROcodone 10MG/APAP 325MG [[place] 10/325] 2 tab PO TID 11/09/16 Ferrous Gluconate [Fergon] 27 mg PO DAILY 02/24/17 Levothyroxine Sodium [Synthroid] 50 mcg PO DAILY #30 tab 02/24/17 Multiple Vitamin [Multi-Vitamin] 1 tab PO DAILY 02/24/17 Pravastatin Sodium 40 mg PO BEDTIME 03/09/17 Transfer to Outside Facility - Transfer Information Accepting Provider:: Henry/W Dr. Munoz -Hospitalist Accepting Facility: [facility] Reason for Transfer: required specialist not available
[2017-08-11] MEDS ORDERED: BUMETANIDE 0.25 MG/ML VIAL IV ONE (23:40)
[2017-08-12] MEDS ORDERED: BUMETANIDE 0.25 MG/ML VIAL ONE (00:54)
[2017-08-12] MEDS ORDERED: ASPIRIN TABLET 325 MG TAB ONE (00:55)
[2017-08-12] MEDS ORDERED: ASPIRIN (CHEWABLE) 81 MG TAB ONE (00:57)
[2017-08-12 02:45] VITALS: O2SAT 99
[2017-08-12 02:58] VITALS: BP 150/81; TEMP 97.8
== END 2017-08-12 03:40 | disposition short-term general hospital (02) ==
LOC: ER 20:50
DX: I11.0 Hypertensive heart disease with heart failure (principal); I50.43 Acute on chronic combined systolic (congestive) and diastolic (congestive) heart failure; D64.9 Anemia, unspecified; E11.9 Type 2 diabetes mellitus without complications; Z95.0 Presence of cardiac pacemaker; Z87.891 Personal history of nicotine dependence; Z95.1 Presence of aortocoronary bypass graft; Z79.82 Long term (current) use of aspirin; Z79.899 Other long term (current) drug therapy; Z82.49 Family history of ischemic heart disease and other diseases of the circulatory system
CPT/HCPCS: 36415; 71010; 80048; 80076; 82550; 82553; 83880; 84484; 85025; 85610; 85730; 93005; 94640; J2930; J3490; J7620

== ENCOUNTER 2017-08-14 05:37 | Emergency (ER) | payer MEDICARE ==
--- NOTE | 2017-08-14 06:01 | ED.PDOC ---
History of Present Illness - General Source: patient Exam Limitations: no limitations - History of Present Illness Initial Comments: Jun Mcduffie 71 y/o male brought by ems with difficulty breathing saturating at 70 % room air from home.He was transferred to [facility] 2 days ago by ambulance with CHF/BNP of 2850 and troponin of 0.10/0.11 then according to EMS he signed out AMA to go to [place] see his friend involved in MVA and was brought by his son.He has history of chf on pacemaker,copd and DM2. Timing/Duration: 1-3 hours Severity: severe Activities at Onset: rest Possible Cause: chronic episodes Worsening Factors: nothing Associated Symptoms: other - chest discomfort Respiratory Risk Factors: other - copd <Benton Hooks - Last Filed: 08/14/17 07:01> <Bam Mir - Last Filed: 08/14/17 08:01> - General Chief Complaint: Respiratory Problem Stated Complaint: difficulty breathing Time Seen by Provider: 08/14/17 05:51 - History of Present Illness Allergies/Adverse Reactions: Allergies NO KNOWN ALLERGY Allergy (Verified 08/11/17 21:29) Home Medications: Ambulatory Orders Glimepiride 4 mg PO BID 06/16/16 Lisinopril 20 mg PO BID 06/16/16 Metformin HCl 1,000 mg PO BID 06/16/16 Trazodone HCl 150 mg PO BEDTIME 06/16/16 Furosemide 40 mg PO DAILY 07/30/16 Aspirin [[place] Low Dose Aspiri] 81 mg PO DAILY 09/09/16 Carvedilol 12.5 mg PO BID 09/09/16 Ticagrelor [Brilinta] 90 mg PO BID 09/09/16 HYDROcodone 10MG/APAP 325MG [[place] 10/325] 2 tab PO TID 11/09/16 Ferrous Gluconate [Fergon] 27 mg PO DAILY 02/24/17 Levothyroxine Sodium [Synthroid] 50 mcg PO DAILY #30 tab 02/24/17 Multiple Vitamin [Multi-Vitamin] 1 tab PO DAILY 02/24/17 Pravastatin Sodium 40 mg PO BEDTIME 03/09/17 Review of Systems - Review of Systems Constitutional: States: no symptoms reported EENTM: States: no symptoms reported Respiratory: States: see HPI Cardiology: States: see HPI Gastrointestinal/Abdominal: States: no symptoms reported Genitourinary: States: no symptoms reported Skin: States: no symptoms reported Neurological: States: no symptoms reported Endocrine: States: no symptoms reported <Benton Hooks R - Last Filed: 08/14/17 07:01> Past Medical History (General) - Patient Medical History Hx Seizures: No Hx Stroke: No Hx Dementia: No Hx Asthma: No Hx of COPD: Yes Hx Cardiac Disorders: Yes Hx Congestive Heart Failure: Yes Hx Pacemaker: No Hx Hypertension: Yes Hx Thyroid Disease: No Hx Diabetes: Yes Hx Gastroesophageal Reflux: No Hx Renal Disease: No Hx Cancer: No Hx of HIV: No Hx MRSA: No Surgical History: coronary bypass surgery, pacemaker, other - cardiac stents, - Vaccination History Hx Tetanus, Diphtheria Vaccination: Yes Hx Influenza Vaccination: Yes Hx Pneumococcal Vaccination: Yes - Social History Hx Tobacco Use: Yes Hx Alcohol Use: No Hx Substance Use: No Hx Substance Use Treatment: No Hx Depression: No Hx Physical Abuse: No Hx Emotional Abuse: No Hx Suspected Abuse: No - Activities of Daily Living Patient Lives Alone: No - family Grooming Ability: Standby Assistance Toileting Ability: Independent - Female History Patient : No <Benton Hooks R - Last Filed: 08/14/17 07:01> Family Medical History - Family History Father Family History: Unknown Living Status: Unknown Hx Cardiac Disease: Yes - dad-mi age 61 <Benton Hooks R - Last Filed: 08/14/17 07:01> Physical Exam - Physical Exam General Appearance: Anxious, Obvious distress, Ill Appearing Eyes, Ears, Nose, Throat Exam: normal ENT inspection, pharynx normal Neck: non-tender, full range of motion, supple Respiratory: chest non-tender, respiratory distress - moderate, decreased breath sounds, other - tachypneic Cardiovascular/Chest: normal peripheral pulses, regular rate, rhythm, no murmur Peripheral Pulses: radial,right: 2+, radial,left: 2+ Gastrointestinal/Abdominal: normal bowel sounds, non tender, soft Neurologic: alert Skin Exam: normal color, warm/dry <Christopher Hookso R - Last Filed: 08/14/17 07:01> Progress - Progress Progress: 08/14/17 06:06 Last Vital Signs Temp 96.4 F L 08/14/17 05:52 Pulse 67 08/14/17 05:52 Resp 28 H 08/14/17 05:52 BP 152/97 08/14/17 05:52 Pulse Ox 87 L 08/14/17 05:52 08/14/17 06:12 He was given O2 non rebreather w/c increase hi SAO2-99%;also complaining of neck and low back pain was given Fentanyl 50 mcg iv 08/14/17 07:01 Blood sugar 46 given d50 w - EKG/XRAY/CT Comments: heart rate-67 pacemaker rhythm <JesseeBhardwaj R - Last Filed: 08/14/17 07:01> - Progress Progress: 08/14/17 07:55 Care taken over at 0700. Chart reviewed and patient assessed. He is mentating but speaking in short sentences and in visible respiratory distress. Patient agreed to DNR/DNI. Plan is to arrange for admission vs transfer for comfort measures. Will cover with antibiotics and steroids for now. - Results/Orders Results/Orders: 08/14/17 06:15 EKG STAT 08/14/17 06:47 ABG [Arterial Blood Gas] Urgent 08/14/17 06:51 URINALYSIS Stat 08/14/17 07:05 BLOOD CULTURE Stat 08/14/17 07:54 DNR .ONCE 08/14/17 08:00 cefTRIAXone SODIUM [Rocephin] 1 gm Sodium Chl 0.9% 50Ml Min-Bag+ [NS 50ml MINI -BAG+] 50 ml IVPB Q24H 08/14/17 Breakfast 2000 Calorie ADA Diet Laboratory Results - last 24 hr 08/14/17 08/14/17 08/14/17 06:02 06:36 06:36 WBC 30.1 H* D RBC 3.19 L Hgb 8.7 L Hct 27.9 L MCV 87.3 MCH 27.2 MCHC 31.1 L RDW 15.9 H Plt Count 503 H D MPV 8.3 Absolute Neuts (auto) Not Reportable Absolute Lymphs (auto) Not Reportable Absolute Monos (auto) Not Reportable Absolute Eos (auto) Not Reportable Neutrophils % Not Reportable Neutrophils % (Manual) 82.0 Lymphocytes % Not Reportable Lymphocytes % (Manual) 8.0 Monocytes % Not Reportable Monocytes % (Manual) 9.0 Eosinophils % Not Reportable Basophils % Not Reportable Band Neutrophils 1.0 Nucleated RBCs 1.0 Hypochromia 1+ Platelet Estimate Increased Poikilocytosis 2+ Anisocytosis 1+ Ovalocytes 1+ PT 28.8 H* D INR 2.570 PTT (SP) 31.6 pCO2 29 L pO2 179 H* HCO3 15.0 ABG pH 7.330 L ABG O2 Saturation 100.1 H ABG Base Excess -9.6 ABG Deoxyhemoglobin -0.1 L Oxyhemoglobin % 96.8 Carboxyhemoglobin % 0.9 Methemoglobin % Sat 2.3 H Calc Total Hemoglobin 7.7 L Sodium 140 Potassium 4.6 Chloride 96 L Carbon Dioxide 17 L D Anion Gap 31.6 H BUN 42 H D Creatinine 1.73 H D BUN/Creatinine Ratio 24.3 H Random Glucose 46 L D Serum Osmolality 287.0 Lactic Acid Calcium 8.8 Magnesium 2.4 Total Bilirubin 2.6 H* D Direct Bilirubin 1.6 H D Indirect Bilirubin 1.0 H AST 1054 H D ALT 1170 H D Alkaline Phosphatase 107 D Creatine Kinase 268 H* CK-MB (CK-2) 8.2 H* D CK-MB (CK-2) % 3.06 Troponin I 0.32 H* C-Reactive Protein B-Natriuretic Peptide 3530.0 H* Serum Total Protein 6.6 Albumin 3.6 08/14/17 08/14/17 07:05 07:05 WBC RBC Hgb Hct MCV MCH MCHC RDW Plt Count MPV Absolute Neuts (auto) Absolute Lymphs (auto) Absolute Monos (auto) Absolute Eos (auto) Neutrophils % Neutrophils % (Manual) Lymphocytes % Lymphocytes % (Manual) Monocytes % Monocytes % (Manual) Eosinophils % Basophils % Band Neutrophils Nucleated RBCs Hypochromia Platelet Estimate Poikilocytosis Anisocytosis Ovalocytes PT INR PTT (SP) pCO2 pO2 HCO3 ABG pH ABG O2 Saturation ABG Base Excess ABG Deoxyhemoglobin Oxyhemoglobin % Carboxyhemoglobin % Methemoglobin % Sat Calc Total Hemoglobin Sodium Potassium Chloride Carbon Dioxide Anion Gap BUN Creatinine BUN/Creatinine Ratio Random Glucose Serum Osmolality Lactic Acid 13.4 H* Calcium Magnesium Total Bilirubin Direct Bilirubin Indirect Bilirubin AST ALT Alkaline Phosphatase Creatine Kinase CK-MB (CK-2) CK-MB (CK-2) % Troponin I C-Reactive Protein 5.7 H B-Natriuretic Peptide Serum Total Protein Albumin 12/08/14/17 08/14/17 05:51 05:52 06:05 Temperature 96.4 F L 96.4 F L Pulse Rate 67 67 Pulse Rate [ 65 67 67 left] Respiratory 26 H 28 H 28 H Rate Blood Pressure 152/97 161/100 [left] O2 Sat by Pulse 87 L 94 L Oximetry 08/14/17 08/14/17 08/14/17 06:25 06:46 07:28 Temperature Pulse Rate 63 63 Pulse Rate [ 63 60 68 left] Respiratory 26 H 26 H 24 Rate Blood Pressure 146/80 103/48 153/87 [left] O2 Sat by Pulse 99 99 95 Oximetry 08/14/17 07:48 Temperature Pulse Rate Pulse Rate [ 63 left] Respiratory 20 Rate Blood Pressure 132/64 [left] O2 Sat by Pulse 95 Oximetry - EKG/XRAY/CT XRAY: chest - unchanged from baseline. cardiomegaly and pulmonary edema. <Bam Mir - Last Filed: 08/14/17 08:01> Departure <Benton Hooks - Last Filed: 08/14/17 07:01> - Departure Time of Disposition: 08:01 <Bam Mir - Last Filed: 08/14/17 08:01> - Departure Clinical Impression: Respiratory distress, Multi-organ failure with heart failure, COPD exacerbation Disposition: Transfer to Hospital Condition: Poor Departure Forms: ED Discharge - Pt. Copy, Patient Portal Self Enrollment Referrals: Mac Yun MD [Primary Care Provider] - 1-2 Weeks Home Medications: Ambulatory Orders Glimepiride 4 mg PO BID 06/16/16 Lisinopril 20 mg PO BID 06/16/16 Metformin HCl 1,000 mg PO BID 06/16/16 Trazodone HCl 150 mg PO BEDTIME 06/16/16 Furosemide 40 mg PO DAILY 07/30/16 Aspirin [[place] Low Dose Aspiri] 81 mg PO DAILY 09/09/16 Carvedilol 12.5 mg PO BID 09/09/16 Ticagrelor [Brilinta] 90 mg PO BID 09/09/16 HYDROcodone 10MG/APAP 325MG [[place] 10/325] 2 tab PO TID 11/09/16 Ferrous Gluconate [Fergon] 27 mg PO DAILY 02/24/17 Levothyroxine Sodium [Synthroid] 50 mcg PO DAILY #30 tab 02/24/17 Multiple Vitamin [Multi-Vitamin] 1 tab PO DAILY 02/24/17 Pravastatin Sodium 40 mg PO BEDTIME 03/09/17 Transfer to Outside Facility - Transfer Information Accepting Provider:: Dr. Martinez Accepting Facility: [facility] Reason for Transfer: specialized care not available - Patient may need ICU level care. Also, no beds available at [facility] per nursing. <Bam Mir - Last Filed: 08/14/17 08:01>
[2017-08-14 06:02] VITALS: TEMP 96.4
[2017-08-14] MEDS ORDERED: fentaNYL CITRATE INJ 50 MCG/ML AMP IV ONE ×2 (06:07→06:52)
[2017-08-14] MEDS ORDERED: fentaNYL CITRATE INJ 50 MCG/ML AMP ONE (06:08)
[2017-08-14] MEDS ORDERED: BUMETANIDE 0.25 MG/ML VIAL IV ONE (06:09)
--- NOTE | 2017-08-14 06:56 | RAD ---
EXAM DESCRIPTION: Chest,1 View CLINICAL HISTORY: sob COMPARISON: 08/11/2017 FINDINGS: Single frontal view of the chest. Atherosclerotic calcification aortic arch. Prior median sternotomy. Left-sided pacemaker. Cardiomegaly. No pneumothorax. Diffuse bilateral interstitial and alveolar opacities. Likely small left pleural effusion. No displaced rib fractures identified. Upper abdominal soft tissues are unremarkable. IMPRESSION: 1. Cardiomegaly with pulmonary edema not significantly changed. Electronically signed by: Tong Saul 08/14/2017 6:55 AM [facility]
[2017-08-14] MEDS ORDERED: DEXTROSE 50% 25 GM/50 ML SYG IV ONE ×2 (06:59→07:00)
[2017-08-14] MEDS ORDERED: predniSONE 20 MG TAB PO ONE (07:53)
[2017-08-14] MEDS ORDERED: AZITHROMYCIN 250 MG TAB PO ONE (07:53)
[2017-08-14] MEDS ORDERED: cefTRIAXone SODIUM 1 GM in SODIUM CHL 0.9% 50ML MIN-BAG+ 50 ML IVPB SCH (08:00)
[2017-08-14] MEDS ORDERED: SODIUM CHL 0.9% 50ML MIN-BAG+ 50 ML IVPB ONE (08:02)
[2017-08-14] MEDS ORDERED: cefTRIAXone SODIUM 1 GM VIAL ONE (08:02)
[2017-08-14 09:08] VITALS: BP 132/67; O2SAT 96
== END 2017-08-14 09:08 | disposition short-term general hospital (02) ==
LOC: ER 05:37
DX: J44.1 Chronic obstructive pulmonary disease with (acute) exacerbation (principal); I11.0 Hypertensive heart disease with heart failure; I50.9 Heart failure, unspecified; E11.9 Type 2 diabetes mellitus without complications; Z95.1 Presence of aortocoronary bypass graft; Z98.61 Coronary angioplasty status; Z87.891 Personal history of nicotine dependence; Z79.82 Long term (current) use of aspirin
CPT/HCPCS: 36415; 36416; 36600; 71010; 80048; 80076; 82550; 82553; 82803; 82805; 82948; 83605; 83880; 84484; 85025; 85610; 85730; 86140; 87040; 93005; J0696; J3010; J3490; J7050; J7512; J7799; Q0144

== ENCOUNTER 2017-08-31 21:16 | Emergency (ER) | payer MEDICARE ==
[2017-08-31 21:27] VITALS: TEMP 98.8
--- NOTE | 2017-08-31 21:49 | RAD ---
PROCEDURE: XR CHEST 1 VIEW HISTORY: Dyspnea COMPARISON: 08/14/2017 TECHNIQUE: 3.0 views of the chest was done. FINDINGS: There is stable position of the left-sided pacemaker wires. Note is again made of median sternotomy . There are no discrete airspace infiltrates, pneumothoraces or pleural effusions. The pulmonary vascularity is normal. The cardiomediastinal silhouette is stable. IMPRESSION: There is no acute pleural-parenchymal process seen in the imaged lung ivory. Stable cardiomegaly Electronically signed by: Zeyad Michel MD 08/31/2017 9:48 PM [facility] Workstation: [id number]
--- NOTE | 2017-08-31 22:11 | ED.PDOC ---
History of Present Illness - General Chief Complaint: Respiratory Problem Stated Complaint: cough, sores in mouth Time Seen by Provider: 08/31/17 21:47 Source: patient, EMS notes reviewed Exam Limitations: no limitations - History of Present Illness Comments: Jun Mcduffie 71 y/o male with history of cad ,chf brought by ems due to non productive cough ;sores inside mouth for the last 3 days;No fever ,no chills,no chest pains no sob.Has flu immunization this year. Timing/Duration: other - see hpi Cough Quality/Degree: dry cough Possible Cause: occasional episodes Worsening Factors: eating Respiratory Risk Factors: other - copd Allergies/Adverse Reactions: Allergies NO KNOWN ALLERGY Allergy (Verified 08/11/17 21:29) Home Medications: Ambulatory Orders Glimepiride 4 mg PO BID 06/16/16 Lisinopril 20 mg PO BID 06/16/16 Metformin HCl 1,000 mg PO BID 06/16/16 Trazodone HCl 150 mg PO BEDTIME 06/16/16 Furosemide 40 mg PO DAILY 07/30/16 Aspirin [[place] Low Dose Aspiri] 81 mg PO DAILY 09/09/16 Carvedilol 12.5 mg PO BID 09/09/16 Ticagrelor [Brilinta] 90 mg PO BID 09/09/16 HYDROcodone 10MG/APAP 325MG [[place] 10/325] 2 tab PO TID 11/09/16 Ferrous Gluconate [Fergon] 27 mg PO DAILY 02/24/17 Levothyroxine Sodium [Synthroid] 50 mcg PO DAILY #30 tab 02/24/17 Multiple Vitamin [Multi-Vitamin] 1 tab PO DAILY 02/24/17 Pravastatin Sodium 40 mg PO BEDTIME 03/09/17 Review of Systems - Review of Systems Constitutional: States: no symptoms reported EENTM: States: see HPI Respiratory: States: cough Cardiology: States: see HPI Gastrointestinal/Abdominal: States: no symptoms reported Genitourinary: States: no symptoms reported Musculoskeletal: States: no symptoms reported Skin: States: no symptoms reported Neurological: States: no symptoms reported Endocrine: States: no symptoms reported Past Medical History (General) - Patient Medical History Hx Seizures: No Hx Stroke: No Hx Dementia: No Hx Asthma: No Hx of COPD: Yes Hx Cardiac Disorders: Yes Hx Congestive Heart Failure: Yes Hx Pacemaker: No Hx Hypertension: Yes Hx Thyroid Disease: No Hx Diabetes: Yes Hx Gastroesophageal Reflux: No Hx Renal Disease: No Hx Cancer: No Hx of HIV: No Hx MRSA: No Surgical History: coronary bypass surgery, other - cardiac stent - Vaccination History Hx Tetanus, Diphtheria Vaccination: Yes Hx Influenza Vaccination: Yes Hx Pneumococcal Vaccination: Yes - Social History Hx Tobacco Use: Yes Hx Alcohol Use: No Hx Substance Use: No Hx Substance Use Treatment: No Hx Depression: No Hx Physical Abuse: No Hx Emotional Abuse: No Hx Suspected Abuse: No - Female History Patient : No Family Medical History - Family History Father Family History: Unknown Living Status: Unknown Hx Cardiac Disease: Yes - dad-mi age 61 Physical Exam - Physical Exam General Appearance: Alert, Comfortable, No apparent distress Eye Exam: bilateral other - wears corrective glasses ENT Exam: hearing grossly normal, TMs normal, other - multiple whitish plaques inside oral muco Neck: supple, trachea midline Respiratory: lungs clear, no respiratory distress, no accessory muscle use Cardiovascular/Chest: regular rate, rhythm, no murmur Gastrointestinal/Abdominal: non tender, soft, no organomegaly Extremity: no calf tenderness, pedal edema - 2+ bilaterally Neurologic: alert, oriented x 3 Skin Exam: normal color, warm/dry Lymphatic: no adenopathy Progress - Progress Progress: 08/31/17 22:21 Last Vital Signs Temp 98.8 F 08/31/17 21:19 Pulse 60 08/31/17 21:19 Resp 20 08/31/17 21:19 BP 143/70 08/31/17 21:19 Pulse Ox 100 08/31/17 21:19 - EKG/XRAY/CT XRAY: chest - no acute abnormalities noted ;stable cardiomegaly Departure - Departure Clinical Impression: Oral candidiasis COPD (chronic obstructive pulmonary disease) Qualifiers: COPD type: unspecified COPD Qualified Code(s): J44.9 - Chronic obstructive pulmonary disease, unspecified Time of Disposition: 23:23 Disposition: Discharge to Home or Self Care Departure Forms: ED Discharge - Pt. Copy, Patient Portal Self Enrollment Instructions: DI for Thrush Referrals: Mac Yun MD [Primary Care Provider] - 1-2 Weeks Home Medications: Ambulatory Orders Glimepiride 4 mg PO BID 06/16/16 Lisinopril 20 mg PO BID 06/16/16 Metformin HCl 1,000 mg PO BID 06/16/16 Trazodone HCl 150 mg PO BEDTIME 06/16/16 Furosemide 40 mg PO DAILY 07/30/16 Aspirin [[place] Low Dose Aspiri] 81 mg PO DAILY 09/09/16 Carvedilol 12.5 mg PO BID 09/09/16 Ticagrelor [Brilinta] 90 mg PO BID 09/09/16 HYDROcodone 10MG/APAP 325MG [[place] 10] 2 tab PO TID 11/09/16 Ferrous Gluconate [Fergon] 27 mg PO DAILY 02/24/17 Levothyroxine Sodium [Synthroid] 50 mcg PO DAILY #30 tab 02/24/17 Multiple Vitamin [Multi-Vitamin] 1 tab PO DAILY 02/24/17 Pravastatin Sodium 40 mg PO BEDTIME 03/09/17 Additional Instructions: Magic Mouthwash as directed for 2 weeks;Follow up with primary Md 09/08/2017 call for appointment
[2017-08-31] MEDS ORDERED: LIDOCAINE VISCOUS 2% 15 ML, diphenhydrAMINE HCL 37.5 MG, NYSTATIN SUSPENSION 15 ML, ALU... PO PRN ×4 (22:23)
[2017-08-31] MEDS ORDERED: NYSTATIN SUSPENSION 5 ML UD MT ONE (22:23)
[2017-08-31] MEDS ORDERED: LEVALBUTEROL NEBS 1.25 MG/3 ML VIAL NEB ONE (22:26)
[2017-08-31] MEDS ORDERED: LIDOCAINE HCL 2% (MOUTH-THROAT) 15 ML UD ONE (22:34)
[2017-08-31] MEDS ORDERED: ALUMINUM & MAGNESIUM HYDROXIDE 30 ML UD ONE (22:34)
[2017-08-31] MEDS ORDERED: diphenhydrAMINE HCL 12.5 MG/5 ML UD ONE (22:34)
[2017-08-31] MEDS ORDERED: NYSTATIN SUSPENSION 5 ML UD ONE (22:35)
[2017-08-31 23:39] VITALS: O2SAT 99
[2017-08-31 23:40] VITALS: BP 141/76
== END 2017-08-31 23:40 | disposition home or self-care (01) ==
LOC: ER 21:16
DX: J44.9 Chronic obstructive pulmonary disease, unspecified (principal); B37.0 Candidal stomatitis; I11.0 Hypertensive heart disease with heart failure; I50.9 Heart failure, unspecified; E11.9 Type 2 diabetes mellitus without complications; Z95.1 Presence of aortocoronary bypass graft; Z98.61 Coronary angioplasty status; Z79.82 Long term (current) use of aspirin
CPT/HCPCS: 71010; 94640; J7614; Q0163

== ENCOUNTER 2017-09-05 14:40 | Emergency (ER) | payer MEDICARE ==
[2017-09-05 16:00] VITALS: TEMP 98.8
[2017-09-05] MEDS ORDERED: INSULIN LISPRO 100 UNITS/ML PEN SUBCU ONE ×2 (16:09→20:24)
--- NOTE | 2017-09-05 16:31 | RAD ---
EXAM DESCRIPTION: Chest,1 View CLINICAL HISTORY: 71 years Male, hyperglycemia COMPARISON: August 31, 2017 TECHNIQUE: AP view FINDINGS: Sternotomy changes. Dual-chamber pacer. Cardiac silhouette remains moderately enlarged. Mediastinum is within normal limits. Mild CHF as seen previously. Small left effusion. IMPRESSION: Mild CHF and small left effusion No significant change compared with prior study Electronically signed by: Brody Umana 09/05/2017 4:30 PM [facility]
[2017-09-05] MEDS ORDERED: INSULIN, REG.(HUMAN) 100 U/ML VIAL IV ONE (17:25)
[2017-09-05] MEDS ORDERED: SODIUM CHLORIDE 0.9% 1000ML 500 ML IVS ONE (17:26)
[2017-09-05] MEDS ORDERED: INSULIN DETEMIR 100 UNITS/ML PEN SUBCU ONE (18:23)
[2017-09-05] MEDS ORDERED: LUBIPROSTONE 24 MCG CAP PO ONE ×2 (18:23→18:33)
[2017-09-05] MEDS ORDERED: glyBURIDE 5 MG TAB PO ONE ×2 (18:24→18:33)
--- NOTE | 2017-09-05 19:57 | ED.PDOC ---
History of Present Illness - General Chief Complaint: Diabetic Complaint Stated Complaint: fingerstick at home was 600 Time Seen by Provider: 09/05/17 15:23 Source: patient Exam Limitations: no limitations - History of Present Illness Initial Comments: The patient is a 71-year-old male presenting to the emergency room secondary to a feeling of fatigue and checking his blood sugar and timing it over 600. Additionally the patient is having some constipation. No chest pain or shortness of breath. No palpitations. No fever. No nausea or vomiting. No urinary symptoms. He has had very poor control recently and his blood sugars. He is only taking metformin. He has been hospitalized several times for hyperglycemia. Timing/Duration: 24 hours Severity: mild Improving Factors: nothing Worsening Factors: nothing Associated Symptoms: denies symptoms Allergies/Adverse Reactions: Allergies NO KNOWN ALLERGY Allergy (Verified 08/11/17 21:29) Home Medications: Ambulatory Orders Glimepiride 4 mg PO BID 06/16/16 Lisinopril 20 mg PO BID 06/16/16 Metformin HCl 1,000 mg PO BID 06/16/16 Trazodone HCl 150 mg PO BEDTIME 06/16/16 Furosemide 40 mg PO DAILY 07/30/16 Aspirin [[place] Low Dose Aspiri] 81 mg PO DAILY 09/09/16 Carvedilol 12.5 mg PO BID 09/09/16 Ticagrelor [Brilinta] 90 mg PO BID 09/09/16 HYDROcodone 10MG/APAP 325MG [[place] 10/325] 2 tab PO TID 11/09/16 Ferrous Gluconate [Fergon] 27 mg PO DAILY 02/24/17 Levothyroxine Sodium [Synthroid] 50 mcg PO DAILY #30 tab 02/24/17 Multiple Vitamin [Multi-Vitamin] 1 tab PO DAILY 02/24/17 Pravastatin Sodium 40 mg PO BEDTIME 03/09/17 Glyburide 5 mg PO DAILY #30 tab 09/05/17 Review of Systems - Review of Systems Constitutional: States: malaise EENTM: States: no symptoms reported Respiratory: States: no symptoms reported Cardiology: States: no symptoms reported Gastrointestinal/Abdominal: States: no symptoms reported Genitourinary: States: no symptoms reported Musculoskeletal: States: no symptoms reported Skin: States: no symptoms reported Neurological: States: headache Endocrine: States: no symptoms reported - mild All other Systems: No Change from Baseline Past Medical History (General) - Patient Medical History Hx Seizures: No Hx Stroke: No Hx Dementia: No Hx Asthma: No Hx of COPD: Yes Hx Cardiac Disorders: Yes Hx Congestive Heart Failure: Yes Hx Pacemaker: No Hx Hypertension: Yes Hx Thyroid Disease: No Hx Diabetes: Yes Hx Gastroesophageal Reflux: No Hx Renal Disease: No Hx Cancer: No Hx of HIV: No Hx MRSA: No Surgical History: coronary bypass surgery, other - Vaccination History Hx Tetanus, Diphtheria Vaccination: Yes Hx Influenza Vaccination: Yes Hx Pneumococcal Vaccination: Yes Immunizations Up to Date: Yes - Social History Hx Tobacco Use: Yes Hx Alcohol Use: No Hx Substance Use: No Hx Substance Use Treatment: No Hx Depression: No Feels Threatened In Home Enviroment: No Feels Threatened In a Relationship: No Hx Physical Abuse: No Hx Emotional Abuse: No Hx Suspected Abuse: No - Female History Patient is a Female of Child Bearing Age (10 -59 yrs old): No Patient : No Family Medical History - Family History Father Family History: Unknown Living Status: Unknown Hx Cardiac Disease: Yes - dad-mi age 61 Physical Exam - Physical Exam General Appearance: Alert, Comfortable, No apparent distress Eye Exam: bilateral normal Ears, Nose, Throat: hearing grossly normal, normal ENT inspection, normal pharynx Neck: full range of motion, supple Respiratory: lungs clear, normal breath sounds, no respiratory distress, no accessory muscle use Cardiovascular/Chest: normal peripheral pulses, regular rate, rhythm, no edema Peripheral Pulses: radial,right: 2+, radial,left: 2+, dorsalis pedis,right: 2+, dorsalis pedis,left: 2+ Gastrointestinal/Abdominal: non tender, soft Rectal Exam: deferred Back Exam: normal inspection, no CVA tenderness Extremity: normal range of motion, non-tender, normal inspection, no pedal edema , normal capillary refill 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 He is not in DKA. The patient is able to tolerate oral intake and has taken and a fair amount of fluids. He has received several doses of insulin subcutaneously and his blood sugars are significantly improving. I'm going to place the patient on glyburide 5 mg by mouth every morning as he is going to check his blood sugars before each meal and before supper. He has one to take these numbers to his primary care doctor to have his medications adjusted. He does need to increase his fluid intake somewhat. He was also given a dose of amitiza for constipation which did work. He needs to keep himself better hydrated to prevent this as well. ER warnings were given for any significant worsening. - Results/Orders Results/Orders: 09/05/17 15:24 Telemetry .CONTINUOUS Laboratory Results - last 24 hr 09/05/17 09/05/17 09/05/17 15:26 16:23 16:43 WBC 6.8 RBC 3.91 L Hgb 10.9 L Hct 34.1 L MCV 87.3 MCH 27.8 MCHC 32.0 L RDW 17.6 H Plt Count 173 MPV 7.8 Absolute Neuts (auto) 5.10 Absolute Lymphs (auto) 0.90 L Absolute Monos (auto) 0.50 Absolute Eos (auto) 0.10 Absolute Basos (auto) 0.10 Neutrophils % 76.0 Lymphocytes % 13.7 L Monocytes % 8.0 Eosinophils % 1.3 Basophils % 1.0 PT INR PTT (SP) Sodium Potassium Chloride Carbon Dioxide Anion Gap BUN Creatinine BUN/Creatinine Ratio POC Glucose 389 H Random Glucose Serum Osmolality Calcium Magnesium Total Bilirubin AST ALT Alkaline Phosphatase Serum Total Protein Albumin Globulin Albumin/Globulin Ratio TSH Urine Color Yellow Urine Appearance Clear Urine pH 7.5 Ur Specific [place] 1.015 Urine Protein Negative Urine Glucose (UA) >=1000 H Urine Ketones Negative Urine Blood Trace-intact H Urine Nitrite Negative Urine Bilirubin Negative Urine Urobilinogen 0.2 Ur Leukocyte Esterase Negative Urine RBC 1-3 Urine WBC 5-10 H Ur Epithelial Cells 0 Urine Bacteria Rare 09/05/17 09/05/17 09/05/17 16:43 16:43 19:32 WBC RBC Hgb Hct MCV MCH MCHC RDW Plt Count MPV Absolute Neuts (auto) Absolute Lymphs (auto) Absolute Monos (auto) Absolute Eos (auto) Absolute Basos (auto) Neutrophils % Lymphocytes % Monocytes % Eosinophils % Basophils % PT 11.4 INR 1.010 PTT (SP) 28.4 Sodium 132 L Potassium 4.4 Chloride 96 L Carbon Dioxide 28 Anion Gap 12.4 BUN 20 H Creatinine 0.94 BUN/Creatinine Ratio 21.3 H POC Glucose > 400 H* Random Glucose 585 H* Serum Osmolality 293.8 Calcium 8.3 L Magnesium 2.3 Total Bilirubin 1.1 H AST 18 ALT 28 Alkaline Phosphatase 69 Serum Total Protein 5.9 L Albumin 3.2 Globulin 2.7 Albumin/Globulin Ratio 1.2 TSH 4.12 Urine Color Urine Appearance Urine pH Ur Specific [place] Urine Protein Urine Glucose (UA) Urine Ketones Urine Blood Urine Nitrite Urine Bilirubin Urine Urobilinogen Ur Leukocyte Esterase Urine RBC Urine WBC Ur Epithelial Cells Urine Bacteria 09/05/17 09/05/17 19:50 22:26 WBC RBC Hgb Hct MCV MCH MCHC RDW Plt Count MPV Absolute Neuts (auto) Absolute Lymphs (auto) Absolute Monos (auto) Absolute Eos (auto) Absolute Basos (auto) Neutrophils % Lymphocytes % Monocytes % Eosinophils % Basophils % PT INR PTT (SP) Sodium Potassium Chloride Carbon Dioxide Anion Gap BUN Creatinine BUN/Creatinine Ratio POC Glucose 193 H D Random Glucose 463 H* Serum Osmolality Calcium Magnesium Total Bilirubin AST ALT Alkaline Phosphatase Serum Total Protein Albumin Globulin Albumin/Globulin Ratio TSH Urine Color Urine Appearance Urine pH Ur Specific [place] Urine Protein Urine Glucose (UA) Urine Ketones Urine Blood Urine Nitrite Urine Bilirubin Urine Urobilinogen Ur Leukocyte Esterase Urine RBC Urine WBC Ur Epithelial Cells Urine Bacteria chest x-ray shows persistent evidence of his congestive heart failure that he was recently in the hospital for. No significant changes however. Departure - Departure Clinical Impression: Uncontrolled type 2 diabetes mellitus Qualifiers: Diabetes mellitus complication status: with unspecified complications Constipation Qualifiers: Constipation type: unspecified constipation type Qualified Code(s): K59.00 - Constipation, unspecified Disposition: Discharge to Home or Self Care Condition: Fair Departure Forms: ED Discharge - Pt. Copy, Patient Portal Self Enrollment Instructions: DI for Diabetes Type 2, DI for Constipation Diet: diabetic diet Activity: increase activity as tolerated Referrals: Mac Yun MD [Primary Care Provider] - 1-5 Days Prescriptions: Glyburide 5 mg PO DAILY #30 tab Home Medications: Ambulatory Orders Glimepiride 4 mg PO BID 06/16/16 Lisinopril 20 mg PO BID 06/16/16 Metformin HCl 1,000 mg PO BID 06/16/16 Trazodone HCl 150 mg PO BEDTIME 06/16/16 Furosemide 40 mg PO DAILY 07/30/16 Aspirin [[facility] [place] Low Dose Aspiri] 81 mg PO DAILY 09/09/16 Carvedilol 12.5 mg PO BID 09/09/16 Ticagrelor [Brilinta] 90 mg PO BID 09/09/16 HYDROcodone 10MG/APAP 325MG [[place] 10] 2 tab PO TID 11/09/16 Ferrous Gluconate [Fergon] 27 mg PO DAILY 02/24/17 Levothyroxine Sodium [Synthroid] 50 mcg PO DAILY #30 tab 02/24/17 Multiple Vitamin [Multi-Vitamin] 1 tab PO DAILY 02/24/17 Pravastatin Sodium 40 mg PO BEDTIME 03/09/17 Glyburide 5 mg PO DAILY #30 tab 09/05/17 Additional Instructions: the patient is a 71-year-old male presenting to the emergency room secondary to uncontrolled hyperglycemia. He is not in DKA. The patient is able to tolerate oral intake and has taken and a fair amount of fluids. He has received several doses of insulin subcutaneously and his blood sugars are significantly improving. I'm going to place the patient on glyburide 5 mg by mouth every morning as he is going to check his blood sugars before each meal and before supper. He has one to take these numbers to his primary care doctor to have his medications adjusted. He does need to increase his fluid intake somewhat. He was also given a dose of amitiza for constipation which did work. He needs to keep himself better hydrated to prevent this as well. ER warnings were given for any significant worsening.
[2017-09-05 23:15] VITALS: BP 118/74; O2SAT 96
[2017-09-06] MEDS ORDERED: LUBIPROSTONE 24 MCG CAP PO ONE (18:23)
[2017-09-06] MEDS ORDERED: glyBURIDE 5 MG TAB PO ONE (18:24)
== END 2017-09-05 23:14 | disposition home or self-care (01) ==
LOC: ER 14:40
DX: E11.65 Type 2 diabetes mellitus with hyperglycemia (principal); K59.00 Constipation, unspecified; I11.0 Hypertensive heart disease with heart failure; I50.9 Heart failure, unspecified; J44.9 Chronic obstructive pulmonary disease, unspecified; Z95.1 Presence of aortocoronary bypass graft; Z79.84 Long term (current) use of oral hypoglycemic drugs; Z79.899 Other long term (current) drug therapy
CPT/HCPCS: 36415; 36416; 71045; 80053; 81001; 82947; 82948; 83735; 84443; 85025; 85610; 85730; J1815

== ENCOUNTER 2017-10-02 19:49 | Emergency (ER) | payer MEDICARE ==
[2017-10-02 20:44] VITALS: BP 172/95; TEMP 100.8; O2SAT 94
--- NOTE | 2017-10-02 20:56 | ED.PDOC ---
History of Present Illness - General Chief Complaint: Neck Injury/Pain Stated Complaint: left neck pain, left arm pain s/p fall last week Time Seen by Provider: 10/02/17 20:38 Source: patient Exam Limitations: no limitations - History of Present Illness Initial Comments: The patient is a 72-year-old male presenting to the emergency room secondary to left shoulder pain that is radiating up to his neck and down to his left hand. He fell 3-5 days ago and has been having a little worsening pain in that area since that time. ER he had x-rays done of the shoulder which showed no evidence of fracture or dislocation. He is having some mild swelling of that left hand secondary to not moving very much. He actually just left AGAINST MEDICAL ADVICE from the [facility] for an infectious process and he does still have a fever that he is not interested in having addressed. He is simply here for his left shoulder pain. there is full passive range of motion. Active range of motion with flexion and abduction does cause some discomfort. He is tender to palpation over the proximal superior trapezius muscle on the left. There is mild diffuse discomfort to palpation over the left shoulder. Timing/Duration: 1 week Severity: mild Improving Factors: nothing Allergies/Adverse Reactions: Allergies NO KNOWN ALLERGY Allergy (Verified 10/02/17 20:45) Home Medications: Ambulatory Orders Glimepiride 4 mg PO BID 06/16/16 Lisinopril 20 mg PO BID 06/16/16 Metformin HCl 1,000 mg PO BID 06/16/16 Trazodone HCl 150 mg PO BEDTIME 06/16/16 Furosemide 40 mg PO DAILY 07/30/16 Aspirin [[facility] [place] Low Dose Aspiri] 81 mg PO DAILY 09/09/16 Carvedilol 12.5 mg PO BID 09/09/16 Ticagrelor [Brilinta] 90 mg PO BID 09/09/16 HYDROcodone 10MG/APAP 325MG [[place] 10/325] 2 tab PO TID 11/09/16 Ferrous Gluconate [Fergon] 27 mg PO DAILY 02/24/17 Levothyroxine Sodium [Synthroid] 50 mcg PO DAILY #30 tab 02/24/17 Multiple Vitamin [Multi-Vitamin] 1 tab PO DAILY 02/24/17 Pravastatin Sodium 40 mg PO BEDTIME 03/09/17 Glyburide 5 mg PO DAILY #30 tab 09/05/17 Review of Systems - Review of Systems Constitutional: States: fever EENTM: States: no symptoms reported Respiratory: States: cough Cardiology: States: no symptoms reported Gastrointestinal/Abdominal: States: no symptoms reported Genitourinary: States: no symptoms reported Musculoskeletal: States: see HPI Skin: States: no symptoms reported Neurological: States: no symptoms reported Endocrine: States: no symptoms reported All other Systems: No Change from Baseline Past Medical History (General) - Patient Medical History Hx Seizures: No Hx Stroke: No Hx Dementia: No Hx Asthma: No Hx of COPD: Yes Hx Cardiac Disorders: Yes Hx Congestive Heart Failure: Yes Hx Pacemaker: Yes Hx Hypertension: Yes Hx Thyroid Disease: No Hx Diabetes: Yes Hx Gastroesophageal Reflux: No Hx Renal Disease: No Hx Cancer: No Hx of HIV: No Hx Hepatitis C: No Hx MRSA: No - Vaccination History Hx Tetanus, Diphtheria Vaccination: Yes Hx Influenza Vaccination: Yes Hx Pneumococcal Vaccination: Yes - Social History Hx Tobacco Use: Yes Hx Alcohol Use: No Hx Substance Use: No Hx Substance Use Treatment: No Hx Depression: No Hx Physical Abuse: No Hx Emotional Abuse: No Hx Suspected Abuse: No - Female History Patient : No Family Medical History - Family History Father Family History: Unknown Living Status: Unknown Hx Cardiac Disease: Yes - dad-mi age 61 Physical Exam - Physical Exam General Appearance: Alert, Comfortable, No apparent distress Eye Exam: bilateral normal Ears, Nose, Throat: hearing grossly normal, normal pharynx Neck: full range of motion, supple Respiratory: chest non-tender, no respiratory distress, no accessory muscle use Cardiovascular/Chest: normal peripheral pulses, no edema, other - egular rate Rectal Exam: deferred Extremity: normal range of motion - assive, no pedal edema, normal capillary refill, other - see hisstory of present illness 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 He has been instructed on how to do range of motion exercises and stretches for that shoulder. he has apparently already hadx-rays of the shoulder done earlier in the week showing no evidence of fracture or dislocation. Topical heat in the form of a heat pad or icy hot or Biofreeze may help additionally. Oral anti-inflammatory such as Aleve or ibuprofen may help as well. He cannot have steroids secondary to his diabetes. He does need to monitor his diabetes closely. He does need to continue his plan of medical care as already dictated by his other treating physicians for his other ongoing medical problems. ER warnings were given for any significant worsening. Departure - Departure Clinical Impression: Rotator cuff strain Qualifiers: Encounter type: initial encounter Laterality: left Qualified Code(s): S46.012A - Strain of muscle(s) and tendon(s) of the rotator cuff of left shoulder, initial encounter Disposition: Discharge to Home or Self Care Condition: Fair Departure Forms: ED Discharge - Pt. Copy, Patient Portal Self Enrollment Instructions: DI for Rotator Cuff Injury Diet: diabetic diet Activity: increase activity as tolerated Referrals: Mac Yun MD [Primary Care Provider] - 1-2 Days Home Medications: Ambulatory Orders Glimepiride 4 mg PO BID 06/16/16 Lisinopril 20 mg PO BID 06/16/16 Metformin HCl 1,000 mg PO BID 06/16/16 Trazodone HCl 150 mg PO BEDTIME 06/16/16 Furosemide 40 mg PO DAILY 07/30/16 Aspirin [[facility] [place] Low Dose Aspiri] 81 mg PO DAILY 09/09/16 Carvedilol 12.5 mg PO BID 09/09/16 Ticagrelor [Brilinta] 90 mg PO BID 09/09/16 HYDROcodone 10MG/APAP 325MG [[place] 10/325] 2 tab PO TID 11/09/16 Ferrous Gluconate [Fergon] 27 mg PO DAILY 02/24/17 Levothyroxine Sodium [Synthroid] 50 mcg PO DAILY #30 tab 02/24/17 Multiple Vitamin [Multi-Vitamin] 1 tab PO DAILY 02/24/17 Pravastatin Sodium 40 mg PO BEDTIME 03/09/17 Glyburide 5 mg PO DAILY #30 tab 09/05/17 Additional Instructions: the patient is a 72-year-old male presenting to emergency room secondary to what is most likely a left sided rotator cuff strain from a fall within the last week. He has been instructed on how to do range of motion exercises and stretches for that shoulder. he has apparently already hadx-rays of the shoulder done earlier in the week showing no evidence of fracture or dislocation. Topical heat in the form of a heat pad or icy hot or Biofreeze may help additionally. Oral anti-inflammatory such as Aleve or ibuprofen may help as well. He cannot have steroids secondary to his diabetes. He does need to monitor his diabetes closely. He does need to continue his plan of medical care as already dictated by his other treating physicians for his other ongoing medical problems. ER warnings were given for any significant worsening. He should follow back up with his primary care doctor in treating physicians as previously scheduled or within the next 3 or 4 days.
== END 2017-10-02 21:07 | disposition home or self-care (01) ==
LOC: ER 19:49
DX: S46.012A Strain of muscle(s) and tendon(s) of the rotator cuff of left shoulder, initial encounter (principal); J44.9 Chronic obstructive pulmonary disease, unspecified; I11.0 Hypertensive heart disease with heart failure; I50.9 Heart failure, unspecified; E11.9 Type 2 diabetes mellitus without complications; Z95.0 Presence of cardiac pacemaker; Z79.82 Long term (current) use of aspirin; Z79.899 Other long term (current) drug therapy; W19.XXXA Unspecified fall, initial encounter

== ENCOUNTER 2017-10-03 03:09 | Emergency (ER) | payer MEDICARE ==
[2017-10-03 03:23] VITALS: TEMP 99.9
[2017-10-03] MEDS ORDERED: IPRATROPIUM/ALBUTEROL 3 ML VIAL NEB ONE (03:35)
[2017-10-03] MEDS ORDERED: FUROSEMIDE 40 MG TAB PO ONE (03:35)
[2017-10-03] MEDS ORDERED: AMOXICILLIN & POT CLAVULANATE 875 MG TAB PO ONE (03:36)
[2017-10-03] MEDS ORDERED: INSULIN, REG.(HUMAN) 100 U/ML VIAL SUBCU ONE (04:18)
[2017-10-03 05:19] VITALS: BP 175/85; O2SAT 94
--- NOTE | 2017-10-03 05:32 | ED.PDOC ---
History of Present Illness - General Chief Complaint: Respiratory Problem Stated Complaint: short of breath Time Seen by Provider: 10/03/17 03:25 Source: patient Exam Limitations: no limitations - History of Present Illness Initial Comments: the patient is 72-year-old male presented to the emergency room secondary to feeling like he is not breathing well. The patient does have a history of COPD. He has of course not been taking his breathing treatments. He has not been checking his blood sugars. He has not been checking his blood pressures. He has not been taking his Lasix for CHF. He was in here earlier today with a complaint of shoulder pain but did not mention any shortness of breath analysis shortness of breath has been going on for couple of days. He was being treated by doctors in [place] just earlier today but apparently left AGAINST MEDICAL ADVICE.he did have a low-grade fever earlier today was not interested in having it checked out. He has a rattly cough but no real productive sputum. He has no significant increased work of breathing. He has no wheezes. He is moving good air.his patient has a very longand sensational history of noncompliance and leaving AGAINST MEDICAL ADVICE. Timing/Duration: unsure Severity: mild Improving Factors: nothing Worsening Factors: nothing Associated Symptoms: denies symptoms Allergies/Adverse Reactions: Allergies NO KNOWN ALLERGY Allergy (Verified 10/03/17 03:23) Home Medications: Ambulatory Orders Glimepiride 4 mg PO BID 06/16/16 Lisinopril 20 mg PO BID 06/16/16 Metformin HCl 1,000 mg PO BID 06/16/16 Trazodone HCl 150 mg PO BEDTIME 06/16/16 Furosemide 40 mg PO DAILY 07/30/16 Aspirin [[place] Low Dose Aspiri] 81 mg PO DAILY 09/09/16 Carvedilol 12.5 mg PO BID 09/09/16 Ticagrelor [Brilinta] 90 mg PO BID 09/09/16 HYDROcodone 10MG/APAP 325MG [[place] 103[address]] 2 tab PO TID 11/09/16 Ferrous Gluconate [Fergon] 27 mg PO DAILY 02/24/17 Levothyroxine Sodium [Synthroid] 50 mcg PO DAILY #30 tab 02/24/17 Multiple Vitamin [Multi-Vitamin] 1 tab PO DAILY 02/24/17 Pravastatin Sodium 40 mg PO BEDTIME 03/09/17 Glyburide 5 mg PO DAILY #30 tab 09/05/17 Amoxicillin & Pot Clavulanate [Augmentin Tab] 875 mg PO BID #14 tab 10/03/17 Oseltamivir Capsule [Tamiflu] 75 mg PO BID 5 Days #10 capsule 10/03/17 Review of Systems - Review of Systems Constitutional: States: fever, malaise EENTM: States: nose congestion Respiratory: States: cough Cardiology: States: no symptoms reported Gastrointestinal/Abdominal: States: no symptoms reported Genitourinary: States: no symptoms reported Musculoskeletal: States: see HPI Skin: States: no symptoms reported Neurological: States: no symptoms reported Endocrine: States: no symptoms reported All other Systems: No Change from Baseline Past Medical History (General) - Patient Medical History Hx Seizures: No Hx Stroke: No Hx Dementia: No Hx Asthma: No Hx of COPD: Yes Hx Cardiac Disorders: Yes Hx Congestive Heart Failure: Yes Hx Pacemaker: Yes Hx Hypertension: Yes Hx Thyroid Disease: No Hx Diabetes: Yes Hx Gastroesophageal Reflux: No Hx Renal Disease: No Hx Cancer: No Hx of HIV: No Hx Hepatitis C: No Hx MRSA: No - Vaccination History Hx Tetanus, Diphtheria Vaccination: Yes Hx Influenza Vaccination: Yes Hx Pneumococcal Vaccination: Yes - Social History Hx Tobacco Use: Yes Hx Alcohol Use: No Hx Substance Use: No Hx Substance Use Treatment: No Hx Depression: No Hx Physical Abuse: No Hx Emotional Abuse: No Hx Suspected Abuse: No - Female History Patient : No Family Medical History - Family History Father Family History: Unknown Living Status: Unknown Hx Cardiac Disease: Yes - dad-mi age 61 Physical Exam - Physical Exam General Appearance: Alert, Comfortable, No apparent distress Eye Exam: bilateral normal Ears, Nose, Throat: hearing grossly normal, nasal congestion Neck: full range of motion, supple Respiratory: no respiratory distress, no accessory muscle use, rhonchi - scattered. Fair air movement. 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 He cannot have steroids given his diabetes. The patient will be covered with Tamiflu being that this is the middle of flu season and with a prescription of Augmentin. I have very little hope that the patient will actually complete course of either but it would be good if he did. He needs to control his blood pressures. He needs to control his blood sugars. He is to take his Lasix as it's been written for him. He needs to take his nebulizer treatments 3 times a day to 4 times a day at least. He should follow- up with his primary care doctor tomorrow or the next day. ER warnings were given for any significant worsening. 10/03/17 05:38 addendum: While I was doing this paperwork the patient left without medical advice without his prescriptions.I'm sure will be seeing him again soon. - Results/Orders Results/Orders: Laboratory Tests 10/03/17 03:45 POC Glucose 260 H Departure - Departure Clinical Impression: Acute exacerbation of COPD with asthma Disposition: Left Against Medical Advice Condition: Poor Departure Forms: Patient Portal Self Enrollment, ED Discharge - Pt. Copy Instructions: DI for Chronic Obstructive Pulmonary Disease Diet: diabetic diet Activity: increase activity as tolerated Referrals: Mac Yun MD [Primary Care Provider] - 1-2 Days Prescriptions: Amoxicillin & Pot Clavulanate [Augmentin Tab] 875 mg PO BID #14 tab Oseltamivir Capsule [Tamiflu] 75 mg PO BID 5 Days #10 capsule Home Medications: Ambulatory Orders Glimepiride 4 mg PO BID 10/18/16 Lisinopril 20 mg PO BID 06/16/16 Metformin HCl 1,000 mg PO BID 06/16/16 Trazodone HCl 150 mg PO BEDTIME 06/16/16 Furosemide 40 mg PO DAILY 07/30/16 Aspirin [[place] Low Dose Aspiri] 81 mg PO DAILY 09/09/16 Carvedilol 12.5 mg PO BID 09/09/16 Ticagrelor [Brilinta] 90 mg PO BID 09/09/16 HYDROcodone 10MG/APAP 325MG [[place] 103[address]] 2 tab PO TID 11/09/16 Ferrous Gluconate [Fergon] 27 mg PO DAILY 02/24/17 Levothyroxine Sodium [Synthroid] 50 mcg PO DAILY #30 tab 02/24/17 Multiple Vitamin [Multi-Vitamin] 1 tab PO DAILY 02/24/17 Pravastatin Sodium 40 mg PO BEDTIME 03/09/17 Glyburide 5 mg PO DAILY #30 tab 09/05/17 Amoxicillin & Pot Clavulanate [Augmentin Tab] 875 mg PO BID #14 tab 10/03/17 Oseltamivir Capsule [Tamiflu] 75 mg PO BID 5 Days #10 capsule 10/03/17 Additional Instructions: the patient is a 72-year-old male that appears to be having a small COPD exacerbation. He cannot have steroids given his diabetes. The patient will be covered with Tamiflu being that this is the middle of flu season and with a prescription of Augmentin. He needs to control his blood pressures. He needs to control his blood sugars. He is to take his Lasix as it's been written for him. He needs to take his nebulizer treatments 3 times a day to 4 times a day at least. He should follow-up with his primary care doctor tomorrow or the next day. ER warnings were given for any significant worsening.
== END 2017-10-03 05:35 | disposition left against medical advice (07) ==
LOC: ER 03:09
DX: J44.1 Chronic obstructive pulmonary disease with (acute) exacerbation (principal); E11.9 Type 2 diabetes mellitus without complications; Z91.19 Patient's noncompliance with other medical treatment and regimen; I11.0 Hypertensive heart disease with heart failure; I50.9 Heart failure, unspecified; Z95.0 Presence of cardiac pacemaker; Z87.891 Personal history of nicotine dependence
CPT/HCPCS: 36416; 82948; 94640; J7620

== ENCOUNTER 2017-11-11 03:05 | Emergency (ER) | payer MEDICARE ==
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
[2017-11-11] MEDS: ORPHENADRINE CITRATE 30 MG/ML AMP IM ONE (04:03)
[2017-11-11] MEDS: MORPHINE SULFATE INJ 10 MG/ML VIAL IM ONE (04:03)
[2017-11-11] MEDS: HYDROCOD/APAP 7.5/325 (ER DISP) #3 TAB PO ONE (04:22)
[2017-11-11 04:49] VITALS: BP 146/81; TEMP 96.8; O2SAT 92
== END 2017-11-11 04:55 | disposition home or self-care (01) ==
LOC: ER 03:05
DX: M54.5 Low back pain (principal); M62.830 Muscle spasm of back; J44.9 Chronic obstructive pulmonary disease, unspecified; I11.0 Hypertensive heart disease with heart failure; I50.9 Heart failure, unspecified; Z95.0 Presence of cardiac pacemaker; Z95.1 Presence of aortocoronary bypass graft; Z87.891 Personal history of nicotine dependence; Z79.82 Long term (current) use of aspirin
CPT/HCPCS: J2270; J2360

== ENCOUNTER 2017-11-15 23:33 | Emergency (ER) | payer MEDICARE ==
--- NOTE | 2017-11-16 00:54 | ED.PDOC ---
History of Present Illness - General Chief Complaint: General Stated Complaint: Fall at home Time Seen by Provider: 11/16/17 00:48 Source: EMS - History of Present Illness Initial Comments: Jun Mcduffie 72 y/o male brought by EMS after he called them up that he fell.On his arrival here refusing to talk to us.Covers his face with blanket and pulls it back up when attempting to talk to him.He has history of cardiovascular disease with frequent hospital visits.Records show that he had mutiple prescriptions of hydrocodone refusing to give names of prescribers. Occurred: this evening Severity: moderate Injuries/Pain Location: upper extremity - right elbow skin tear Reason for Fall: unknown Loss of Consciousness: no loss of consciousness Improving Factors: nothing Worsening Factors: nothing Associated Symptoms (Fall): other - refuse to talk Allergies/Adverse Reactions: Allergies NO KNOWN ALLERGY Allergy (Verified 11/15/17 23:58) Home Medications: Ambulatory Orders Glimepiride 4 mg PO BID 06/16/16 Lisinopril 20 mg PO BID 06/16/16 Metformin HCl 1,000 mg PO BID 06/16/16 Trazodone HCl 150 mg PO BEDTIME 06/16/16 Furosemide 40 mg PO DAILY 07/30/16 Aspirin [[facility] [place] Low Dose Aspiri] 81 mg PO DAILY 09/09/16 Carvedilol 12.5 mg PO BID 09/09/16 Ticagrelor [Brilinta] 90 mg PO BID 09/09/16 HYDROcodone 10MG/APAP 325MG [[place] 10/325] 2 tab PO TID 11/09/16 Ferrous Gluconate [Fergon] 27 mg PO DAILY 02/24/17 Levothyroxine Sodium [Synthroid] 50 mcg PO DAILY #30 tab 02/24/17 Multiple Vitamin [Multi-Vitamin] 1 tab PO DAILY 02/24/17 Pravastatin Sodium 40 mg PO BEDTIME 03/09/17 Glyburide 5 mg PO DAILY #30 tab 09/05/17 Amoxicillin & Pot Clavulanate [Augmentin Tab] 875 mg PO BID #14 tab 10/03/17 Oseltamivir Capsule [Tamiflu] 75 mg PO BID 5 Days #10 capsule 10/03/17 Acetamin W/Cod #3 Tab [Tylenol w/CODEINE #3] 1 ea PO Q8HRS PRN #14 tab 11/11/17 Baclofen 20 mg PO BID #14 tab 11/11/17 Furosemide Tab [Lasix Tab] 40 mg PO QDPC #30 tab 11/16/17 Review of Systems - Review of Systems Unable to Obtain Due To: condition - not cooperating refuse to talk Past Medical History (General) - Patient Medical History Hx Seizures: No Hx Stroke: No Hx Dementia: No Hx Asthma: No Hx of COPD: Yes Hx Cardiac Disorders: Yes Hx Congestive Heart Failure: Yes Hx Pacemaker: No Hx Hypertension: No Hx Thyroid Disease: No Hx Diabetes: Yes Hx Gastroesophageal Reflux: No Hx Renal Disease: No Hx Cancer: No Hx of HIV: No Hx Hepatitis C: No Hx MRSA: No Surgical History: coronary bypass surgery, pacemaker, other - stent - Vaccination History Hx Tetanus, Diphtheria Vaccination: No Hx Influenza Vaccination: No Hx Pneumococcal Vaccination: No - Social History Hx Tobacco Use: Yes Hx Alcohol Use: Yes Hx Substance Use: No Hx Substance Use Treatment: No Hx Depression: Yes Hx Physical Abuse: No Hx Emotional Abuse: No Hx Suspected Abuse: No - Activities of Daily Living Grooming Ability: Independent Eating (Feeding) Ability: Independent Toileting Ability: Independent - Female History Patient : No - Triage Comment ED Triage Comment: Presents to ER--via [facility]--from home---fell out of bed [facility]. Pt is uncooperative with ED staff and will not answer questions. States, " Leave me alone". Physical Exam - Physical Exam General Appearance: No apparent distress, Other - somnolent Head Injury: no evidence of injury Eye Exam: bilateral normal ENT Exam: no evidence of ENT injury, no dental injury Peripheral Pulses: radial,right: 2+, radial,left: 2+ Cardiovascular/Respiratory: regular rate, rhythm, no M/R/G, normal peripheral pulses, no respiratory distress, wheezing Gastrointestinal/Abdominal: normal bowel sounds, non tender, soft, no organomegaly Back Exam: no CVA tenderness, no vertebral tenderness Neurologic: no motor/sensory deficits Skin Exam: normal color, warm/dry, other - abrasion right elbow superficial skin - Tammy Coma Score Best Eye Response ([place]): (4) open spontaneously Best Verbal Response (Tammy): (3) inappropriate words Best Motor Response (Tammy): (6) obeys commands [place] Total: 13 Progress - Progress Progress: 11/16/17 03:24 Vital Signs - 24 hr 11/16/17 00:00 Temperature 96.4 F L Pulse Rate [ 60 monitor] Respiratory 20 Rate O2 Sat by Pulse 91 L Oximetry 11/16/17 03:49 Patient was more cooperative now stating he ran out of his water pills for 5 days.Declined staying in hospital wants to go.He stated fell off his bed tonight. 11/16/17 03:56 Unable to get EKG patient does not want to lay on his back;but able to get up from bed and urinate holding the urinal;had been verbally abusive to the nurses - Results/Orders Results/Orders: 11/16/17 00:48 IV Care:Saline Lock per Protoc QSHIFT URINALYSIS Stat 11/16/17 00:56 URINE DRUG SCREEN, 7 ASSAY Stat Laboratory Results - last 24 hr 11/16/17 11/16/17 11/16/17 00:48 01:10 01:10 WBC 7.1 RBC 3.73 L Hgb 10.1 L Hct 30.7 L MCV 82.4 MCH 27.0 MCHC 32.9 L RDW 17.1 H Plt Count 294 MPV 7.3 L Absolute Neuts (auto) 5.50 Absolute Lymphs (auto) 0.90 L Absolute Monos (auto) 0.50 Absolute Eos (auto) 0.10 Absolute Basos (auto) 0.10 Neutrophils % 77.9 Lymphocytes % 13.4 L Monocytes % 7.0 Eosinophils % 0.8 L Basophils % 0.9 PT 14.1 H INR 1.250 PTT (SP) 34.2 Sodium 141 Potassium 3.9 Chloride 107 Carbon Dioxide 25 Anion Gap 12.9 BUN 21 H Creatinine 1.03 BUN/Creatinine Ratio 20.4 H Random Glucose 132 H Serum Osmolality 286.1 Lactic Acid 1.8 Calcium 9.0 Magnesium 1.8 Total Bilirubin 1.2 H Direct Bilirubin 0.5 H Indirect Bilirubin 0.7 AST 29 ALT 27 Alkaline Phosphatase 59 Creatine Kinase 71 CK-MB (CK-2) 4.6 H* CK-MB (CK-2) % 6.48 H Troponin I 0.05 B-Natriuretic Peptide Serum Total Protein 6.5 Albumin 3.4 Ethyl Alcohol < 5.40 11/16/17 01:10 WBC RBC Hgb Hct MCV MCH MCHC RDW Plt Count MPV Absolute Neuts (auto) Absolute Lymphs (auto) Absolute Monos (auto) Absolute Eos (auto) Absolute Basos (auto) Neutrophils % Lymphocytes % Monocytes % Eosinophils % Basophils % PT INR PTT (SP) Sodium Potassium Chloride Carbon Dioxide Anion Gap BUN Creatinine BUN/Creatinine Ratio Random Glucose Serum Osmolality Lactic Acid Calcium Magnesium Total Bilirubin Direct Bilirubin Indirect Bilirubin AST ALT Alkaline Phosphatase Creatine Kinase CK-MB (CK-2) CK-MB (CK-2) % Troponin I B-Natriuretic Peptide > 5000.0 H* Serum Total Protein Albumin Ethyl Alcohol - EKG/XRAY/CT XRAY: chest - no acute abnormality Departure - Departure Clinical Impression: Altered awareness, transient Fall Qualifiers: Encounter type: initial encounter Qualified Code(s): W19.XXXA - Unspecified fall, initial encounter Abrasion forearm Qualifiers: Encounter type: initial encounter Laterality: right Qualified Code(s): S50.811A - Abrasion of right forearm, initial encounter Time of Disposition: 04:16 Disposition: Discharge to Home or Self Care Condition: Fair Departure Forms: ED Discharge - Pt. Copy, Patient Portal Self Enrollment Referrals: Mac Yun MD [Primary Care Provider] - 1-2 Weeks Prescriptions: Furosemide Tab [Lasix Tab] 40 mg PO QDPC #30 tab Home Medications: Ambulatory Orders Glimepiride 4 mg PO BID 06/16/16 Lisinopril 20 mg PO BID 06/16/16 Metformin HCl 1,000 mg PO BID 06/16/16 Trazodone HCl 150 mg PO BEDTIME 06/16/16 Furosemide 40 mg PO DAILY 07/30/16 Aspirin [[place] Low Dose Aspiri] 81 mg PO DAILY 09/09/16 Carvedilol 12.5 mg PO BID 09/09/16 Ticagrelor [Brilinta] 90 mg PO BID 09/09/16 HYDROcodone 10MG/APAP 325MG [[place] 10/325] 2 tab PO TID 11/09/16 Ferrous Gluconate [Fergon] 27 mg PO DAILY 02/24/17 Levothyroxine Sodium [Synthroid] 50 mcg PO DAILY #30 tab 02/24/17 Multiple Vitamin [Multi-Vitamin] 1 tab PO DAILY 02/24/17 Pravastatin Sodium 40 mg PO BEDTIME 03/09/17 Glyburide 5 mg PO DAILY #30 tab 09/05/17 Amoxicillin & Pot Clavulanate [Augmentin Tab] 875 mg PO BID #14 tab 10/03/17 Oseltamivir Capsule [Tamiflu] 75 mg PO BID 5 Days #10 capsule 10/03/17 Acetamin W/Cod #3 Tab [Tylenol w/CODEINE #3] 1 ea PO Q8HRS PRN #14 tab 11/11/17 Baclofen 20 mg PO BID #14 tab 11/11/17 Furosemide Tab [Lasix Tab] 40 mg PO QDPC #30 tab 11/16/17 Additional Instructions: Follow up with primary Md 17 November 2017;Return to ER as needed
[2017-11-16] MEDS ORDERED: NALOXONE HCL INJ 1 MG/ML SYG IV ONE (01:00)
[2017-11-16] MEDS ORDERED: THIAMINE HCL INJ 100 MG in SODIUM CHLORIDE 0.9% 100ML 100 ML IM ONE (01:27)
[2017-11-16] MEDS ORDERED: THIAMINE HCL INJ 100 MG/ML VIAL ONE (01:27)
[2017-11-16] MEDS ORDERED: THIAMINE HCL INJ 100 MG/ML VIAL IM ONE (01:30)
[2017-11-16] MEDS ORDERED: BUMETANIDE 0.25 MG/ML VIAL IV ONE (02:04)
--- NOTE | 2017-11-16 02:55 | RAD ---
EXAM DESCRIPTION: Chest,1 View CLINICAL HISTORY: sob COMPARISON: September 05, 2017 FINDINGS: Cardiac silhouette is enlarged, unchanged compared with the prior exam. Pacer leads project over the heart. Patient is status post median sternotomy. The patient is rotated. There is no focal parenchymal or pleural disease. There is no acute osseous process visualized. IMPRESSION: No evidence of acute cardiopulmonary disease. Electronically signed by: Jason Curiel MD 11/16/2017 2:53 AM CDT
[2017-11-16 08:17] VITALS: BP 148/84; TEMP 96.8; O2SAT 97
== END 2017-11-16 09:06 | disposition home or self-care (01) ==
LOC: ER 23:33
DX: R40.4 Transient alteration of awareness (principal); S50.811A Abrasion of right forearm, initial encounter; I50.9 Heart failure, unspecified; J44.9 Chronic obstructive pulmonary disease, unspecified; E11.9 Type 2 diabetes mellitus without complications; Z95.1 Presence of aortocoronary bypass graft; Z95.0 Presence of cardiac pacemaker; Z79.82 Long term (current) use of aspirin; Z87.891 Personal history of nicotine dependence; W06.XXXA Fall from bed, initial encounter; Y92.009 Unspecified place in unspecified non-institutional (private) residence as the place of occurrence of the external cause
CPT/HCPCS: 36415; 71045; 80048; 80076; 80307; 80320; 81001; 82550; 82553; 83605; 83880; 84484; 85025; 85610; 85730; J2310; J3411; J3490

== ENCOUNTER 2017-11-22 12:37 | Emergency (ER) | payer MEDICARE ==
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
--- NOTE | 2017-11-22 13:39 | RAD ---
EXAM DESCRIPTION: Chest,1 View CLINICAL HISTORY: 72 years Male, COPD COMPARISON: Previous study November 16, 2017 TECHNIQUE: AP portable chest. FINDINGS: Heart size is large with increased pulmonary vascularity. Vascularity appears decreased since previous study. No consolidating infiltrate. No pulmonary mass or worrisome nodule. Cardiac pacer is in place. No pneumothorax or significant sized pleural effusion. Bones are unremarkable for age. IMPRESSION: Large heart with mild central vascular congestion. Electronically signed by: Nate Obrien MD 11/22/2017 1:37 PM CDT
[2017-11-22 14:33] VITALS: TEMP 98.4
[2017-11-22 16:37] VITALS: BP 127/98; O2SAT 96
== END 2017-11-22 15:50 | disposition home or self-care (01) ==
LOC: ER 12:37
DX: F05 Delirium due to known physiological condition (principal); J44.9 Chronic obstructive pulmonary disease, unspecified; E10.8 Type 1 diabetes mellitus with unspecified complications; I50.9 Heart failure, unspecified; Z79.84 Long term (current) use of oral hypoglycemic drugs; Z79.899 Other long term (current) drug therapy; Z79.82 Long term (current) use of aspirin; Z87.891 Personal history of nicotine dependence

== ENCOUNTER 2017-12-10 22:06 | Emergency (ER) | payer MEDICARE ==
[2017-12-10] MEDS ORDERED: SODIUM CHLORIDE 0.9% (FLUSH) 10 ML SYG IV PRN (22:17)
[2017-12-10] MEDS ORDERED: IPRATROPIUM/ALBUTEROL 3 ML VIAL NEB ONE (22:20)
[2017-12-10 22:30] VITALS: TEMP 96.7
[2017-12-10] MEDS ORDERED: NITROGLYCERIN 0.4 MG/HR PATCH TOP ONE ×2 (22:51→22:53)
[2017-12-10] MEDS ORDERED: BUMETANIDE 0.25 MG/ML VIAL IV ONE (22:51)
[2017-12-10] MEDS ORDERED: BUMETANIDE 0.25 MG/ML VIAL ONE (22:53)
--- NOTE | 2017-12-10 22:54 | ED.PDOC ---
History of Present Illness - General Chief Complaint: Respiratory Problem Stated Complaint: shortness of breath, edema Time Seen by Provider: 12/10/17 22:24 Source: patient Exam Limitations: no limitations - History of Present Illness Initial Comments: Jun Mcduffie 72 y/o male with cad,chf on pacemaker stated that he had been having SOB the last 3 days and got worse today with swelling of his abdomen.Denies chest pains,cough ,fever,hemoptysis. Timing/Duration: other - see hpi Severity: moderate Activities at Onset: rest Possible Cause: chronic episodes Improving Factors: nothing Worsening Factors: nothing Associated Symptoms: other - see hpi Respiratory Risk Factors: other - cigarette smoke,chf Allergies/Adverse Reactions: Allergies NO KNOWN ALLERGY Allergy (Verified 11/22/17 13:09) Home Medications: Ambulatory Orders RX: Glimepiride 4 mg PO BID 06/16/16 RX: Lisinopril 20 mg PO BID 06/16/16 RX: Metformin HCl 1,000 mg PO BID 06/16/16 RX: Trazodone HCl 150 mg PO BEDTIME 06/16/16 RX: Furosemide 40 mg PO DAILY 07/30/16 Aspirin [[place] Low Dose Aspiri] 81 mg PO DAILY 09/09/16 RX: Carvedilol 12.5 mg PO BID 09/09/16 Ticagrelor [Brilinta] 90 mg PO BID 09/09/16 HYDROcodone 10MG/APAP 325MG [[place] 10/325] 2 tab PO TID 11/09/16 Levothyroxine Sodium [Synthroid] 50 mcg PO DAILY #30 tab 02/24/17 Multiple Vitamin [Multi-Vitamin] 1 tab PO DAILY 02/24/17 RX: Pravastatin Sodium 40 mg PO BEDTIME 03/09/17 Insulin Administration Supplie 12/10/17 Januvia 12/10/17 Risperidone 12/10/17 Nitroglycerin Patch 0.4 mg/Hr [Nitro-Dur PATCH 0.4 mg/hour] 0.4 mg TD QDPC #30 patch 12/11/17 RX: Metolazone 2.5 mg PO DAILY #30 tab 12/11/17 Review of Systems - Review of Systems Constitutional: States: no symptoms reported EENTM: States: no symptoms reported Respiratory: States: see HPI Cardiology: States: see HPI Gastrointestinal/Abdominal: States: see HPI Genitourinary: States: no symptoms reported Musculoskeletal: States: no symptoms reported Skin: States: no symptoms reported All other Systems: Reviewed and Negative, No Change from Baseline Past Medical History (General) - Patient Medical History Hx Seizures: No Hx Stroke: No Hx Dementia: No Hx Asthma: No Hx of COPD: Yes Hx Cardiac Disorders: Yes Hx Congestive Heart Failure: Yes Hx Pacemaker: No Hx Hypertension: No Hx Thyroid Disease: No Hx Diabetes: No Hx Gastroesophageal Reflux: No Hx Renal Disease: No Hx Cancer: No Hx of HIV: No Hx Hepatitis C: No Hx MRSA: No Surgical History: appendectomy, pacemaker, other - cabg - Vaccination History Hx Tetanus, Diphtheria Vaccination: No Hx Influenza Vaccination: No Hx Pneumococcal Vaccination: No - Social History Hx Tobacco Use: Yes Years Tobacco Use: 40 Cigarettes Packs Per Day: 1 Hx Alcohol Use: Yes Hx Substance Use: No Hx Substance Use Treatment: No Hx Depression: Yes Hx Physical Abuse: No Hx Emotional Abuse: No Hx Suspected Abuse: No - Activities of Daily Living Grooming Ability: Independent Eating (Feeding) Ability: Independent Toileting Ability: Independent - Female History Patient : No Family Medical History - Family History Father Family History: Unknown Living Status: Unknown Hx Cardiac Disease: Yes - dad-mi age 61 Mother Living Status: Hx Family Cancer: Yes Physical Exam - Physical Exam General Appearance: Alert, Comfortable, No apparent distress Eyes, Ears, Nose, Throat Exam: normal ENT inspection Neck: non-tender, full range of motion, supple Respiratory: chest non-tender, no respiratory distress, no accessory muscle use , rhonchi, wheezing Cardiovascular/Chest: normal peripheral pulses, regular rate, rhythm, no murmur Peripheral Pulses: radial,right: 2+, radial,left: 2+ Gastrointestinal/Abdominal: normal bowel sounds, non tender, soft, distended Extremity: no calf tenderness, pedal edema Neurologic: alert, oriented x 3 Skin Exam: normal color, warm/dry Progress - Progress Progress: 12/10/17 22:57 Vital Signs - 8 hr 12/10/17 12/10/17 22:23 22:30 Temperature 96.7 F L Pulse Rate [ 60 60 left] Respiratory 18 22 Rate Blood Pressure 140/86 [left] O2 Sat by Pulse 96 Oximetry 12/10/17 23:56 Had urine output of 1200 ml after bumex iv able to walk to the bathroom with his cane with mild dyspnea - Results/Orders Results/Orders: 12/10/17 22:17 IV Care:Saline Lock per Protoc QSHIFT Telemetry .ONCE Sodium Chloride 0.9% (Flush) [Saline Flush Syringe] 10 ml IV PRN PRN 12/10/17 22:20 SVN/Updraft Therapy .PRN 12/10/17 22:30 EKG STAT 12/11/17 09:00 Pulse Ox Daily Laboratory Results - last 24 hr 12/10/17 12/10/17 12/10/17 22:40 22:40 22:40 WBC 8.0 RBC 3.74 L Hgb 10.0 L Hct 30.7 L MCV 82.1 MCH 26.7 L MCHC 32.7 L RDW 16.5 H Plt Count 256 MPV 7.2 L Absolute Neuts (auto) 5.80 Absolute Lymphs (auto) 1.30 Absolute Monos (auto) 0.70 Absolute Eos (auto) 0.20 Absolute Basos (auto) 0.10 Neutrophils % 71.9 Lymphocytes % 15.8 L Monocytes % 8.8 Eosinophils % 2.2 Basophils % 1.3 Sodium 137 Potassium 4.1 Chloride 103 Carbon Dioxide 26 Anion Gap 12.1 BUN 21 H Creatinine 1.24 BUN/Creatinine Ratio 16.9 Random Glucose 71 Serum Osmolality 275.3 Calcium 8.9 Total Bilirubin 0.4 AST 19 ALT 14 Alkaline Phosphatase 66 Creatine Kinase 52 CK-MB (CK-2) 2.5 CK-MB (CK-2) % Not Reportable Troponin I 0.03 B-Natriuretic Peptide 1950.0 H* Serum Total Protein 6.5 Albumin 3.5 Globulin 3.0 Albumin/Globulin Ratio 1.2 TSH 12/10/17 22:40 WBC RBC Hgb Hct MCV MCH MCHC RDW Plt Count MPV Absolute Neuts (auto) Absolute Lymphs (auto) Absolute Monos (auto) Absolute Eos (auto) Absolute Basos (auto) Neutrophils % Lymphocytes % Monocytes % Eosinophils % Basophils % Sodium Potassium Chloride Carbon Dioxide Anion Gap BUN Creatinine BUN/Creatinine Ratio Random Glucose Serum Osmolality Calcium Total Bilirubin AST ALT Alkaline Phosphatase Creatine Kinase CK-MB (CK-2) CK-MB (CK-2) % Troponin I B-Natriuretic Peptide Serum Total Protein Albumin Globulin Albumin/Globulin Ratio TSH 21.42 H - EKG/XRAY/CT Comments: Heart rate 60 pacemaker XRAY: chest - cardiomegaly with mild vascular congestion - Additional EKG/XRAY/Consults EKG #2: Unchanged from Comments: HR -60 pacemaker rhythm Departure - Departure Clinical Impression: CHF, acute on chronic Qualifiers: Congestive heart failure type: combined Qualified Code(s): I50.43 - Acute on chronic combined systolic (congestive) and diastolic (congestive) heart failure Hypothyroidism Qualifiers: Hypothyroidism type: unspecified Qualified Code(s): E03.9 - Hypothyroidism, unspecified Anemia Qualifiers: Anemia type: other cause Other causes of anemia: chronic disease, other Qualified Code(s): D63.8 - Anemia in other chronic diseases classified elsewhere Time of Disposition: 00:03 Disposition: Discharge to Home or Self Care Condition: Fair Departure Forms: ED Discharge - Pt. Copy, Patient Portal Self Enrollment Instructions: Hypothyroidism, DI for Heart Failure, How to [place] With Heart Failure, How to Keep Track of Your Weight When You Have Heart Failure, Why It Is Important to Quit Smoking If You Have Heart Failure, DI for Hypothyroidism Referrals: Mac Yun MD [Primary Care Provider] - 1-2 Weeks Prescriptions: RX: Metolazone 2.5 mg PO DAILY #30 tab Nitroglycerin Patch 0.4 mg/Hr [Nitro-Dur PATCH 0.4 mg/hour] 0.4 mg TD QDPC #30 patch Home Medications: Ambulatory Orders RX: Glimepiride 4 mg PO BID 06/16/16 RX: Lisinopril 20 mg PO BID 06/16/16 RX: Metformin HCl 1,000 mg PO BID 06/16/16 RX: Trazodone HCl 150 mg PO BEDTIME 06/16/16 RX: Furosemide 40 mg PO DAILY 07/30/16 Aspirin [[facility] [place] Low Dose Aspiri] 81 mg PO DAILY 09/09/16 RX: Carvedilol 12.5 mg PO BID 09/09/16 Ticagrelor [Brilinta] 90 mg PO BID 09/09/16 HYDROcodone 10MG/APAP 325MG [[place] [address]] 2 tab PO TID 11/09/16 Levothyroxine Sodium [Synthroid] 50 mcg PO DAILY #30 tab 02/24/17 Multiple Vitamin [Multi-Vitamin] 1 tab PO DAILY 02/24/17 RX: Pravastatin Sodium 40 mg PO BEDTIME 03/09/17 Insulin Administration Supplie 12/10/17 Januvia 12/10/17 Risperidone 12/10/17 Nitroglycerin Patch 0.4 mg/Hr [Nitro-Dur PATCH 0.4 mg/hour] 0.4 mg TD QDPC #30 patch 12/11/17 RX: Metolazone 2.5 mg PO DAILY #30 tab 12/11/17 Additional Instructions: Need to increase dose of LEVOTHYROXINE 1 1/2 or 75 mcg. in am before meals ; follow up with primary Md 13 December 2017
--- NOTE | 2017-12-10 22:58 | RAD ---
EXAM DESCRIPTION: Chest,1 View CLINICAL HISTORY:72 years Male, shortness of breath, CHF Comparison: November 22, 2017 FINDINGS: No focal lung consolidation. No pleural effusion. No pneumothorax. Enlarged cardiac silhouette, similar to prior. Mild vascular congestion. Atherosclerotic vascular calcifications. Left sided cardiac device. No acute osseous abnormality. Soft tissues are unremarkable. IMPRESSION: No change from prior. Enlarged cardiac silhouette with mild central vascular congestion. No focal lung consolidation. Electronically signed by: Pramod Vaughn MD 12/10/2017 10:56 PM CDT
[2017-12-11 00:10] VITALS: BP 127/54; O2SAT 95
[2017-12-11] MEDS ORDERED: HYDROcodone 10MG/APAP 325MG 1 EA TAB PO ONE (00:15)
[2017-12-11] MEDS ORDERED: METHOCARBAMOL 750 MG TAB PO ONE (00:16)
== END 2017-12-11 00:28 | disposition home or self-care (01) ==
LOC: ER 22:06
DX: I50.43 Acute on chronic combined systolic (congestive) and diastolic (congestive) heart failure (principal); E03.9 Hypothyroidism, unspecified; D63.8 Anemia in other chronic diseases classified elsewhere; Z95.1 Presence of aortocoronary bypass graft; Z95.0 Presence of cardiac pacemaker; F17.210 Nicotine dependence, cigarettes, uncomplicated; Z79.82 Long term (current) use of aspirin
CPT/HCPCS: 36415; 36600; 71045; 80053; 82550; 82553; 83880; 84443; 84484; 85025; 93005; 94640; 94760; J3490; J7620

== ENCOUNTER 2017-12-19 03:53 | Emergency (ER) | payer MEDICARE ==
[2017-12-19] MEDS ORDERED: BUMETANIDE 0.25 MG/ML VIAL IV ONE (04:06)
[2017-12-19] MEDS ORDERED: IPRATROPIUM/ALBUTEROL 3 ML VIAL NEB ONE (04:08)
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
[2017-12-19] MEDS ORDERED: methylPREDNISolone SODIUM SUC 125 MG/2 ML VIAL IM ONE (04:25)
[2017-12-19] MEDS ORDERED: MAGNESIUM SULFATE PREMIX 2GM 2 GM in PREMIX BAG 1 BAG IVPB ONE (05:35)
[2017-12-19] MEDS ORDERED: MAGNESIUM SULFATE PREMIX 2GM 50 ML IVPB ONE (05:47)
--- NOTE | 2017-12-19 06:16 | RAD ---
EXAM: AP CHEST RADIOGRAPH CLINICAL INDICATION: Shortness of breath. COMPARISON: Chest radiograph of December 10, 2017. FINDINGS: Unchanged sequela of remote heart surgery. Improving pulmonary congestion and cardiac size. No pleural effusions or pneumothorax. IMPRESSION: Improving chest radiograph. Electronically signed by: Brody Lazo MD 12/19/2017 6:15 AM CDT
--- NOTE | 2017-12-19 06:22 | CT ---
NONCONTRAST ABDOMEN AND PELVIC CT EXAMINATION. HISTORY: Abdominal pain and distention. COMPARISONS: None currently available. PROCEDURE: Using helical technique, thin section axial images were performed through the abdomen and pelvis without the administration of intravenous or oral contrast material. FINDINGS: 4.7 cm possible cyst in the left lower renal pole. The adrenal glands, kidneys, renal collecting systems, ureters and urinary bladder are grossly normal on this noncontrast examination. Extensive colonic diverticulosis with evidence of mild to moderate diverticulitis in the ascending colon extending to the hepatic flexure of the colon. The patient is post remote appendectomy. No evidence of inflammatory bowel disease, bowel obstruction, extraluminal bowel gas or retroperitoneal hemorrhage. No ascites, free pelvic fluid or evidence of intra-abdominal abscess on this noncontrast examination. Fluid-filled right inguinal hernia without bowel hernia. There are stones in the fluid-filled gallbladder without CT evidence of cholecystitis. The liver, spleen, pancreas, stomach and duodenum are grossly normal on this noncontrast examination. Severe atherosclerotic calcification in the abdominal aorta extending into the renal arteries, superior mesenteric artery and celiac trunk. Severe atherosclerotic calcification is also present in the iliac arteries. No abdominal aortic aneurysm. Greatest AP diameter of the infrarenal abdominal aorta measures 1.9 cm. Bones appear normal for age. IMPRESSION: 1. Descending colon diverticulitis without adjacent abscess cavity or free peritoneal gas. 2. Cholelithiasis without CT evidence of cholecystitis. Gallbladder ultrasound would prove useful for further evaluation as clinically warranted. 3. No urinary system obstruction or evidence of pyelonephritis on this noncontrast examination. 4. Severe atherosclerotic calcification in the abdominal aorta, iliac arteries and renal artery origins without abdominal aortic aneurysm. If clinical concern persists, post intravenous contrast and post oral contrast abdomen and pelvic CT examination should be performed for further evaluation. This exam was performed according to our departmental dose-optimization program, which includes automated exposure control, adjustment of the mA and/or kV according to patient size and/or use of iterative reconstruction technique. Electronically signed by: Brody Lazo MD 12/19/2017 6:21 AM CDT
[2017-12-19] MEDS ORDERED: ceFAZolin SODIUM 1 GM VIAL IM ONE (06:38)
[2017-12-19] MEDS ORDERED: metroNIDAZOLE 500 MG TAB PO ONE (06:38)
[2017-12-19] MEDS ORDERED: cefTRIAXone SODIUM 1 GM in SODIUM CHL 0.9% 50ML MIN-BAG+ 50 ML IVPB ONE (06:41)
[2017-12-19 06:43] VITALS: TEMP 97.5
[2017-12-19] MEDS ORDERED: cefTRIAXone SODIUM 1 GM VIAL ONE (06:45)
[2017-12-19] MEDS ORDERED: SODIUM CHL 0.9% 50ML MIN-BAG+ 50 ML IVPB ONE (06:46)
[2017-12-19] MEDS ORDERED: HYDROcodone 10MG/APAP 325MG 1 EA TAB PO ONE (06:51)
[2017-12-19] MEDS ORDERED: WATER FOR INJ 10 ML VIAL INJ ONE (07:17)
[2017-12-19] MEDS ORDERED: ceFAZolin SODIUM 1 GM VIAL ONE (07:17)
[2017-12-19 07:33] VITALS: BP 127/81; O2SAT 94
== END 2017-12-19 07:30 | disposition home or self-care (01) ==
LOC: ER 03:53
DX: I50.43 Acute on chronic combined systolic (congestive) and diastolic (congestive) heart failure (principal); E83.42 Hypomagnesemia; K57.32 Diverticulitis of large intestine without perforation or abscess without bleeding; E07.9 Disorder of thyroid, unspecified; J44.9 Chronic obstructive pulmonary disease, unspecified; Z95.1 Presence of aortocoronary bypass graft; Z95.0 Presence of cardiac pacemaker; Z79.82 Long term (current) use of aspirin; Z79.4 Long term (current) use of insulin
CPT/HCPCS: 36415; 71045; 74176; 80048; 80076; 80307; 81001; 82550; 82553; 83880; 84484; 85025; 85610; 85730; 93005; 94640; J0696; J2930; J3475; J3490; J7050; J7620

== ENCOUNTER 2017-12-21 00:25 | Emergency (ER) | payer MEDICARE ==
[2017-12-21] MEDS ORDERED: methylPREDNISolone SODIUM SUC 125 MG/2 ML VIAL IV ONE (00:38)
[2017-12-21] MEDS ORDERED: IPRATROPIUM/ALBUTEROL 3 ML VIAL NEB ONE (00:38)
[2017-12-21 00:45] VITALS: BP 122/91; TEMP 97.6
--- NOTE | 2017-12-21 00:51 | ED.PDOC ---
History of Present Illness - General Chief Complaint: Respiratory Problem Stated Complaint: SOB Time Seen by Provider: 12/21/17 00:37 Source: patient Exam Limitations: clinical condition, other - PT APPEARS OVER MEDICATED. Additional Information: PT COMES C/O OF SOB. WELL KNOWN TO THE ED. TAKES NARCOTICS AND "SLEEPING PILLS" WHICH HE CANNOT REMEMBER. PT FALLS ASLEEP FREQUENTLY, SPEECH THICK AND SLURRED. DENIES ETOH, DRUGS, OR HYDROCODONE USE. - History of Present Illness Timing/Duration: unsure Severity: moderate Improving Factors: nothing Worsening Factors: nothing Associated Symptoms: other - UNKNOWN Allergies/Adverse Reactions: Allergies NO KNOWN ALLERGY Allergy (Verified 12/21/17 00:45) Home Medications: Ambulatory Orders Glimepiride 4 mg PO BID 06/16/16 Lisinopril 20 mg PO BID 06/16/16 Metformin HCl 1,000 mg PO BID 06/16/16 Trazodone HCl 150 mg PO BEDTIME 06/16/16 Furosemide 40 mg PO DAILY 07/30/16 Aspirin [[place] Low Dose Aspiri] 81 mg PO DAILY 09/09/16 Carvedilol 12.5 mg PO BID 09/09/16 Ticagrelor [Brilinta] 90 mg PO BID 09/09/16 HYDROcodone 10MG/APAP 325MG [[place] 10325] 2 tab PO TID 11/09/16 Levothyroxine Sodium [Synthroid] 50 mcg PO DAILY #30 tab 02/24/17 Multiple Vitamin [Multi-Vitamin] 1 tab PO DAILY 02/24/17 Pravastatin Sodium 40 mg PO BEDTIME 03/09/17 Insulin Administration Supplie 12/10/17 Januvia 12/10/17 Risperidone 12/10/17 Metolazone 2.5 mg PO DAILY #30 tab 12/11/17 Nitroglycerin Patch 0.4 mg/Hr [Nitro-Dur PATCH 0.4 mg/hour] 0.4 mg TD QDPC #30 patch 12/11/17 Albuterol Inhaler [Ventolin Hfa Inhaler] 108 mcg IN Q4HR PRN #1 inh 12/19/17 Cephalexin 1,000 mg PO BID 10 Days #40 cap 12/19/17 metroNIDAZOLE [Flagyl] 500 mg PO TID #30 tab 12/19/17 Review of Systems - Review of Systems Constitutional: States: no symptoms reported EENTM: States: no symptoms reported Respiratory: States: short of breath, wheezing. Denies: cough Cardiology: Denies: chest pain, palpitations, syncope Gastrointestinal/Abdominal: States: no symptoms reported Genitourinary: States: no symptoms reported Musculoskeletal: States: no symptoms reported Skin: States: no symptoms reported Neurological: States: no symptoms reported Endocrine: States: no symptoms reported Hematologic/Lymphatic: States: no symptoms reported Past Medical History (General) - Patient Medical History Hx Seizures: No Hx Stroke: No Hx Dementia: No Hx Asthma: No Hx of COPD: Yes Hx Cardiac Disorders: Yes Hx Congestive Heart Failure: Yes Hx Pacemaker: Yes Hx Hypertension: No Hx Thyroid Disease: Yes Hx Diabetes: No Hx Gastroesophageal Reflux: No Hx Renal Disease: No Hx Cancer: No Hx of HIV: No Hx Hepatitis C: No Hx MRSA: No Surgical History: noncontributory - Vaccination History Hx Tetanus, Diphtheria Vaccination: No Hx Influenza Vaccination: No Hx Pneumococcal Vaccination: No - Social History Hx Tobacco Use: Yes Hx Chewing Tobacco Use: No Hx Alcohol Use: Yes Hx Substance Use: No Hx Substance Use Treatment: No Hx Depression: Yes Hx Physical Abuse: No Hx Emotional Abuse: No Hx Suspected Abuse: No - Female History Patient : No Family Medical History - Family History Father Family History: Unknown Living Status: Unknown Hx Cardiac Disease: Yes - dad-mi age 61 Mother Living Status: Hx Family Cancer: Yes Physical Exam - Physical Exam General Appearance: Agitated, Lethargic, Other - AROUSES TO VERBAL STIMULI BUT SOMNOLENT AND UNKEMPT Eye Exam: bilateral normal Ears, Nose, Throat: hearing grossly normal, normal ENT inspection Neck: non-tender, full range of motion, supple Respiratory: other - DIMINISHED EDUARD, PROLONGED EXP PHASE, EXP WHEEZES EDUARD. NO RALES, NO RHONCHI Cardiovascular/Chest: regular rate, rhythm, no murmur Gastrointestinal/Abdominal: normal bowel sounds, non tender, soft, no organomegaly Back Exam: normal inspection, no CVA tenderness Extremity: normal range of motion, non-tender Neurologic: other - SOMNOLENT BUT AROUSES TO VERBAL STIMULI. Skin Exam: normal color, warm/dry Lymphatic: no adenopathy Progress - Progress Progress: 12/21/17 01:24 PT REMAINS AGITATED, STILL WITH EXP WHEEZES, START CONTINUOUS NEB AND GET BNP 12/21/17 01:36 PT MORE ALERT, AWAKE NOW, IS VERBALLY ABUSIVE AND CURSING AT STAFF. HAS PULLED OFF HIS NEBULIZER, STATES HE WANTS TO LEAVE AMA. TRIED TO DISCUSS RISKS VS BENEFITS WITH HIM INCLUDING HE TELLS ME "THAT'S BULLSHIT". DOESN'T WANT THE NEBULIZER BUT WANTS ME TO FINISH. REFUSED TO ALLOW EKG. WILL TRY LASIX PT MAY NEED CT CHEST BUT HAS NOT BEEN COOPERATIVE THUS FAR. ADVISED HIM TO STOP YELLING AND CURSING AT STAFF. 12/21/17 01:47 PT STATING TO "TAKE THE SON OF A WHITLEY OFF" (REFERRING TO THE NEBULIZER). PT REMAINS VERBALLY ABUSIVE TO STAFF. WANTS TO LEAVE AMA. DISCUSSED RISKS VS BENEFITS. HE REFUSES TO ANSWER QUESTIONS BUT DOES INDICATE HE UNDERSTANDS WHAT HE'S DOING. ALL INDICATIONS ARE THAT HE IS COMPENTENT TO MAKE DECISIONS FOR HIMSELF. 12/21/17 01:59 PT STILL DEMANDING FROM NURSES TO BE DISCHARGED. THEY HAVE EXPLAINED MULTIPLE TIMES THAT HE IS WAITING FOR HIS RIDE. VERY RUDE TO STAFF. 12/21/17 02:05 FAMILY HERE. HAS APPT THIS AM. THEY ARE APOLOGETIC. ADVISED PT AND FAMILY TO RETURN IF HE CHANGES HIS MIND OR GETS WORSE. - EKG/XRAY/CT EKG: nonspecific ST T wave Chg - NAIP, Unchanged from - 12/10/17 Comments: ELECTRONIC VENTRICULAR PACER. RATE 60. XRAY: chest - CARDIOMEGALY, MILD-MOD INTERSTITIAL EDEMA Departure - Departure Clinical Impression: SOB (shortness of breath) COPD (chronic obstructive pulmonary disease) Qualifiers: COPD type: COPD with acute exacerbation Qualified Code(s): J44.1 - Chronic obstructive pulmonary disease with (acute) exacerbation CAD (coronary artery disease) Qualifiers: Coronary Disease-Associated Artery/Lesion type: bypass graft [place] vs. transplanted heart: [place] heart Associated angina: without angina Qualified Code(s): I25.810 - Atherosclerosis of coronary artery bypass graft(s) without angina pectoris ICD-10 Supporting Text: COPD EXACERBATION VS CHF Time of Disposition: 02:07 Disposition: Left Against Medical Advice Condition: Poor Departure Forms: ED Discharge - Pt. Copy, Patient Portal Self Enrollment Referrals: Mac Yun MD [Primary Care Provider] - 1-2 Weeks Home Medications: Ambulatory Orders Glimepiride 4 mg PO BID 06/16/16 Lisinopril 20 mg PO BID 06/16/16 Metformin HCl 1,000 mg PO BID 06/16/16 Trazodone HCl 150 mg PO BEDTIME 06/16/16 Furosemide 40 mg PO DAILY 07/30/16 Aspirin [[facility] Low Dose Aspiri] 81 mg PO DAILY 09/09/16 Carvedilol 12.5 mg PO BID 09/09/16 Ticagrelor [Brilinta] 90 mg PO BID 09/09/16 HYDROcodone 10MG/APAP 325MG [Pinole 10325] 2 tab PO TID 11/09/16 Levothyroxine Sodium [Synthroid] 50 mcg PO DAILY #30 tab 02/24/17 Multiple Vitamin [Multi-Vitamin] 1 tab PO DAILY 02/24/17 Pravastatin Sodium 40 mg PO BEDTIME 03/09/17 Insulin Administration Supplie 12/10/17 Januvia 12/10/17 Risperidone 12/10/17 Metolazone 2.5 mg PO DAILY #30 tab 12/11/17 Nitroglycerin Patch 0.4 mg/Hr [Nitro-Dur PATCH 0.4 mg/hour] 0.4 mg TD QDPC #30 patch 12/11/17 Albuterol Inhaler [Ventolin Hfa Inhaler] 108 mcg IN Q4HR PRN #1 inh 12/19/17 Cephalexin 1,000 mg PO BID 10 Days #40 cap 12/19/17 metroNIDAZOLE [Flagyl] 500 mg PO TID #30 tab 12/19/17
[2017-12-21] MEDS ORDERED: NALOXONE HCL INJ 1 MG/ML SYG IV ONE (00:56)
--- NOTE | 2017-12-21 01:08 | RAD ---
EXAM: Single view chest. INDICATION: Shortness of breath. COMPARISON: Chest x-ray: 12/19/2017. FINDINGS: There is pulmonary vascular congestion with interstitial edema. The heart is enlarged with a left chest wall pacemaker in place. There is no pneumothorax or pleural effusion. The bones are demineralized. IMPRESSION: Pulmonary vascular congestion with interstitial edema Electronically signed by: Hakeem Bradshaw MD 12/21/2017 1:06 AM CDT Workstation: [id number]
[2017-12-21] MEDS ORDERED: SODIUM CHLORIDE 0.9% NEB 3 ML VIAL ONE (01:20)
[2017-12-21] MEDS ORDERED: ALBUTEROL SULFATE 2.5 MG/3 ML VIAL NEB ONE (01:20)
[2017-12-21] MEDS ORDERED: FUROSEMIDE INJ 20 MG/2 ML VIAL IV ONE (01:40)
[2017-12-21] MEDS ORDERED: SODIUM CHL 0.9% 50ML VIAL 12 ML, ALBUTEROL SULFATE NEBS 7.5 MG NEB ONE ×2 (01:48)
[2017-12-21 05:00] VITALS: O2SAT 96
== END 2017-12-21 02:06 | disposition left against medical advice (07) ==
LOC: ER 00:25
DX: J44.1 Chronic obstructive pulmonary disease with (acute) exacerbation (principal); I25.810 Atherosclerosis of coronary artery bypass graft(s) without angina pectoris; I50.9 Heart failure, unspecified; E07.9 Disorder of thyroid, unspecified; Z95.0 Presence of cardiac pacemaker; Z79.4 Long term (current) use of insulin; Z79.82 Long term (current) use of aspirin; Z87.891 Personal history of nicotine dependence
CPT/HCPCS: 36415; 71045; 80053; 80320; 80329; 83880; 84484; 85025; 85379; 93005; 94640; 94644; A4216; J1940; J2310; J2930; J7611; J7620

== ENCOUNTER 2017-12-22 11:23 | Emergency (ER) | payer MEDICARE ==
[2017-12-22 11:44] VITALS: TEMP 96.3
[2017-12-22] MEDS ORDERED: IPRATROPIUM/ALBUTEROL 3 ML VIAL NEB ONE (11:50)
[2017-12-22] MEDS ORDERED: FUROSEMIDE INJ 40 MG/4 ML VIAL IV ONE (11:53)
--- NOTE | 2017-12-22 13:05 | RAD ---
EXAM DESCRIPTION: Abdomen Series CLINICAL HISTORY: sob, confusion COMPARISON: CT the abdomen and pelvis dated 19 December 2017 TECHNIQUE: PA chest with supine and upright views of the abdomen] FINDINGS: Cardiomegaly is evident. The patient is poststernotomy and pacemaker placement. Mild pulmonary vascular congestion is observed without overt pulmonary edema. Surgical clips are seen in the right lower quadrant. The abdominal bowel gas pattern is normal. No organomegaly is seen. IMPRESSION: 1. Cardiomegaly and pulmonary vascular congestion are observed without overt pulmonary edema. 2. There is evidence of prior abdominal surgery. 3. The bowel gas pattern is unremarkable. Electronically signed by: Lencho Li MD 12/22/2017 1:03 PM CDT
--- NOTE | 2017-12-22 13:07 | CT ---
EXAM DESCRIPTION: Head: Computed Tomography. CLINICAL HISTORY: confusion COMPARISON: None. TECHNIQUE: Non-helical axial scans through the skull and brain, at 2.5 mm intervals, non-contrast. Coronal and sagittal 2.0 mm reconstructions. Total Exam DLP: 752.48 mGy-cm. This exam was performed according to our departmental dose-optimization program which includes automated exposure control, adjustment of the mA and/or kV according to patient size and/or use of iterative reconstruction technique; to reduce radiation dose to as low as reasonably achievable (ALARA). FINDINGS: No hemorrhage, no mass-effect, and no midline shift. Minimal bilateral periventricular white matter low-density is relatively symmetric. Focal cortical and subcortical white matter lesion in the vertex of the right frontoparietal sensorimotor cortex. Adjacent to prominent cortical sulci and mid body of the right lateral ventricle with no definite mass effect. No abnormal radiodense material in the brain parenchyma. Vascular calcifications anterior and posterior; physiologic calcifications in the pineal gland and choroid plexus. No effacement or displacement of the ventricles, CSF spaces, or subdural spaces. Cortical sulci in the frontal parietal and occipital lobes slightly prominent. No extra axial fluid collection or hemorrhage. No gross abnormalities of the bony calvarium. Included paranasal sinuses and mastoid air cells are well - aerated. IMPRESSION: 1. No hemorrhage, no mass effect, no midline shift. Bilateral periventricular leukomalacia most likely related to cerebral microvascular disease. 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 Atrophy in the adjacent cortex.. 2. CT scans are insensitive for detecting small CVAs in the first 24 hours after onset. Evaluation of the brain stem is also limited. If symptoms persist, consider NON-EMERGENT MRI scan of the brain with diffusion imaging. Electronically signed by: Juan Judge MD 12/22/2017 1:06 PM CDT
[2017-12-22] MEDS ORDERED: LEVOTHYROXINE SODIUM 0.1 MG TAB ONE (13:53)
--- NOTE | 2017-12-22 14:20 | CT ---
EXAM DESCRIPTION: Abdoment/Pelvis w/o Contrast CLINICAL HISTORY: leukocytosis, ams, recent diverticulitis COMPARISON: December 19, 2017 TECHNIQUE: CT of the abdomen and Pelvis was performed without IV contrast. This exam was performed according to our departmental dose-optimization program, which includes automated exposure control, adjustment of the mA and/or kV according to patient size and/or use of iterative reconstruction technique. FINDINGS: The heart is enlarged but stable from the prior study. Cardiac pacemaker leads and postoperative changes in the mediastinum only partially visualized. No lung base abnormality. No pneumoperitoneum, adenopathy or ascites. No hiatal hernia. There is a centrally calcified gallstone in the gallbladder with a small amount of pericholecystic fluid. No biliary duct dilation or pancreatitis. The liver, spleen, pancreas and adrenals are unremarkable for noncontrast technique. Again seen is a 4.4 cm left renal cyst. The kidneys and ureters are otherwise unremarkable. No bladder wall thickening or bladder calcification. No dilated small bowel loops or mesenteric inflammation. There is some central calcification in the prostate, but the prostate does not appear enlarged. Moderate amount of colonic stool and gas and colonic diverticulosis, but no colonic wall thickening or pericolonic inflammation to suggest diverticulitis. A surgical clip in the right lower quadrant is probably related to prior appendectomy. Mural calcifications are noted in the abdominal aorta and common iliac arteries without aneurysm. A right common femoral arterial stent is present. Mild to moderate stenosis of the common and external iliac arteries is suspected but suboptimally evaluated due to lack of IV contrast. No acute bone lesion. IMPRESSION: Cholelithiasis with pericholecystic fluid suggestive of cholecystitis. Right upper quadrant ultrasound would be helpful for further evaluation. Large amount of colonic stool and gas and colonic diverticulosis, but no diverticulitis or other acute abnormality in the abdomen or pelvis to explain patient symptoms. Cardiomegaly and coronary artery disease. Atherosclerotic vascular disease involving abdominal aorta, common and external iliac arteries bilaterally. Electronically signed by: Dominik Herrera MD 12/22/2017 2:19 PM CDT
[2017-12-22] MEDS ORDERED: PIPERACILLIN/TAZOBACTAM 3.375 GM in SODIUM CHLORIDE 0.9% 100ML 100 ML IVPB ONE (14:25)
[2017-12-22] MEDS ORDERED: predniSONE 20 MG TAB PO ONE (15:05)
[2017-12-22] MEDS ORDERED: PIPERACILLIN/TAZOBACTAM 3.375 GM VIAL IVPB ONE (15:09)
[2017-12-22] MEDS ORDERED: SODIUM CHLORIDE 0.9% 100ML 100 ML IVPB ONE (15:09)
--- NOTE | 2017-12-22 15:40 | ED.PDOC ---
History of Present Illness - General Chief Complaint: Respiratory Problem Stated Complaint: difficulty breathing Time Seen by Provider: 12/22/17 11:25 Source: patient Exam Limitations: no limitations - History of Present Illness Initial Comments: the patient is a 72-year-old male presenting to the emergency room when I believe is the fourth time this month. The patient is a frequent emergency room visitor. He is a difficult patient to treat in general secondary to behavior issues. He has highly noncompliant and very often belligerent with staff. About half the time he leaves AGAINST MEDICAL ADVICE in general. Quite often even if he does stay the prescriptions are written and he will not get filled. The patient shows up today secondary to the report of some confusion as well as some shortness of breath. EMS was actually called out last night after he had gotten up in the middle of the night and fallen. He has some bruises to his shins bilaterally as well as to his face. No loss of consciousness according to him. He does not actually remember calling EMS. He does not remember that when they got there that he deferred transfer. This is all documented in the records. The patient does have a history of substance abuse in the past. 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 These are normally the reasons that he shows up with altered mental status. The patient was found to have some significant hypothyroidism around 3 weeks ago and was written for a higher dose Synthroid which she apparently did not get filled. When asked what medications the patient is taking he reports that he doesn't know that his granddaughter gives him his medications. 3 days ago he was apparently diagnosed with a mild diverticulitis by CT scan and was placed on Keflex and metronidazole. Yesterday he was seen in the emergency room for shortness of breath and left AGAINST MEDICAL ADVICE before really any evaluation could be done. He was also seen his primary care doctor's office yesterday. He was told he would not be written anymore hydrocodone secondary to his misuse of it. He apparently showed up very drowsy and altered at that appointment. Labs were obtained 3 days ago for comparison for today's labs. The patient does have a known history ofCOPD, CHF, coronary artery disease. He does have a pacemaker and is taking amiodarone. He was also recently diagnosed about 7 or 8 months ago with hypothyroidism. Apparently his compliance with medications for this has been spotty at best. He does have chronic pain issues. He does have markedly noncompliance issues. He reports that he has had at least one attack of cholecystitis in the past. Upon his arrival today he has scattered wheezes as well as scattered rails bilaterally. He does have increased work of breathing. He knows where he is in what is going on but he is very drowsy. He does take nighttime sedative medications. There are no focal neurological changes. As his stay here in the emergency room goes on he wakes up nicely indicating that the drowsiness may simply be the medications affecting him too much. He reports that his last breathing treatment was yesterday afternoon. the patient is actually not reporting any GI symptoms. No nausea or vomiting or diarrhea. No abdominal pain. No urinary symptoms as well. Additional information obtained from the family shows that the patient has been acting fairly aggressively at least the last couple of days. He was just discharged from home health a couple of days ago secondary to noncompliance and the fact that he had been selling some of his medications for money. It is somewhat difficult to tell if the patient is confused or if he is frustrated and acting out. Currently he is acting completely rationally. He has a plan for tonight. He is going to have his grandson stay with him and help him with his medications tonight and take him to [facility] tomorrow for continuation of the care started today. He does understand that there is a significant possibility of him worsening of the leaves the hospital. He understands that states that there are things he has to take care of today and he cannot go to [place] today. He is confident that he can make medication changes that we want him to make and follow-up for further evaluation tomorrow at [facility]. the patient will sign out AGAINST MEDICAL ADVICE. He is alert and oriented and competent currently. I cannot make him go against his will. I have my reservations on whether he will actually follow through on the plan above. Timing/Duration: unsure Severity: moderate Improving Factors: nothing Worsening Factors: nothing Associated Symptoms: cough, malaise, shortness of breath Allergies/Adverse Reactions: Allergies NO KNOWN ALLERGY Allergy (Verified 12/21/17 00:45) Home Medications: Ambulatory Orders Glimepiride 4 mg PO BID 06/16/16 Lisinopril 20 mg PO BID 06/16/16 Metformin HCl 1,000 mg PO BID 06/16/16 Furosemide 40 mg PO DAILY 07/30/16 Carvedilol 12.5 mg PO BID 09/09/16 Ticagrelor [Brilinta] 90 mg PO BID 09/09/16 HYDROcodone 10MG/APAP 325MG [[place] 10325] 2 tab PO TID 11/09/16 Levothyroxine Sodium [Synthroid] 50 mcg PO DAILY #30 tab 02/24/17 Pravastatin Sodium 40 mg PO BEDTIME 03/09/17 Albuterol Inhaler [Ventolin Hfa Inhaler] 108 mcg IN Q4HR PRN #1 inh 12/19/17 Amiodarone HCl 200 mg PO BID 12/22/17 Budesonide-Formoterol Fumarate [Symbicort] 2 inh IN BID 12/22/17 Chlorzoxazone [Parafon Forte DSC] 500 mg PO QID PRN 12/22/17 Clopidogrel Bisulfate 75 mg PO DAILY 12/22/17 Harvoni 90mg/400mg 1 ea PO DAILY 12/22/17 Insulin Detemir [Levemir] 10 units SUBCU DAILY 12/22/17 Levothyroxine Sodium [Synthroid] 0.15 mg PO DAILY #20 tab 12/22/17 Metoprolol Tartrate 100 mg PO BID 12/22/17 Pantoprazole Sodium 40 mg PO DAILY 12/22/17 Paroxetine HCl [Paxil] 20 mg PO DAILY 12/22/17 Risperidone [Risperdal] 0.5 mg PO BEDTIME 12/22/17 Sitagliptin Phosphate [Januvia] 100 mg PO DAILY 12/22/17 traZODone HCL [Desyrel] 50 mg PO BEDTIME #20 tab 12/22/17 Review of Systems - Review of Systems Constitutional: States: malaise, weakness EENTM: States: nose congestion Respiratory: States: cough, short of breath Cardiology: States: no symptoms reported Gastrointestinal/Abdominal: States: no symptoms reported Genitourinary: States: no symptoms reported Musculoskeletal: States: other - chronic back pain Skin: States: no symptoms reported Neurological: States: other - lethargy and intermittent confusion Endocrine: States: no symptoms reported All other Systems: No Change from Baseline Past Medical History (General) - Patient Medical History Hx Seizures: No Hx Stroke: No Hx Dementia: No Hx Asthma: No Hx of COPD: Yes Hx Cardiac Disorders: Yes Hx Congestive Heart Failure: Yes Hx Pacemaker: Yes Hx Hypertension: No Hx Thyroid Disease: Yes Hx Diabetes: Yes Hx Gastroesophageal Reflux: No Hx Renal Disease: No Hx Cancer: No Hx of HIV: No Hx Hepatitis C: No Hx MRSA: No Surgical History: appendectomy, coronary bypass surgery, pacemaker - Vaccination History Hx Tetanus, Diphtheria Vaccination: No Hx Influenza Vaccination: No Hx Pneumococcal Vaccination: No - Social History Hx Tobacco Use: Yes Hx Chewing Tobacco Use: No Hx Alcohol Use: Yes Hx Substance Use: No Hx Substance Use Treatment: No Hx Depression: Yes Hx Physical Abuse: No Hx Emotional Abuse: No Hx Suspected Abuse: No - Female History Patient : No Family Medical History - Family History Father Family History: Unknown Living Status: Unknown Hx Cardiac Disease: Yes - dad-mi age 61 Mother Living Status: Hx Family Cancer: Yes Physical Exam - Physical Exam General Appearance: Lethargic - he patient is drowsy but responsive to voice. He does have some bruising around hisface and forehead from the fall., Unkempt Eye Exam: bilateral normal Ears, Nose, Throat: hearing grossly normal, normal ENT inspection - poor dentition Neck: full range of motion, supple Respiratory: respiratory distress - mild, accessory muscle use - oderate, crackles, rales, wheezing Cardiovascular/Chest: normal peripheral pulses, no edema, other - egular rate Peripheral Pulses: radial,right: 2+, radial,left: 2+, dorsalis pedis,right: 1+, dorsalis pedis,left: 1+ Gastrointestinal/Abdominal: non tender, soft Rectal Exam: deferred Back Exam: no CVA tenderness, no vertebral tenderness Extremity: normal range of motion, non-tender, no pedal edema, normal capillary refill 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 Skin Exam: normal color - with the exception of the bruises from the fall last night Comments: Vital Signs - 24 hr 12/22/17 12/22/17 12/22/17 11:39 12:31 12:32 Temperature 96.3 F L Pulse Rate 60 Pulse Rate [ 60 Left Brachial] Respiratory 20 20 25 H Rate Blood Pressure 157/93 [Left Arm] O2 Sat by Pulse 98 100 Oximetry 12/22/17 15:21 Temperature Pulse Rate Pulse Rate [ 59 L Left Brachial] Respiratory 20 Rate Blood Pressure 125/87 [Left Arm] O2 Sat by Pulse 100 Oximetry Progress - Progress Progress: 12/22/17 15:45 the patient is a 72-year-old male presenting with a somewhat puzzling clinical picture. The patient does appear to have worsening congestive heart failure that is possibly related to worsening hypothyroidism, but of course may also be related to medication side effects, infection, etc. Our laboratory machine for evaluating a TSH is nonfunctional at this time. Results should be back later tonight. His TSH had markedly elevated over the last 3 months when checked a couple of weeks ago, going from 4 to 21. It does not appear that he has changed his thyroid dose so it stands to reason that is likely as bad as it was or has continued to worsen. The patient does take amiodarone which is the most likely source for his deteriorating thyroid function. The patient also has worsening of his kidney function. He also has a mild elevation in his liver function tests. No elevation in alkaline phosphatase. The patient has an elevation in his CK which may be associated with rhabdomyolysis but may also be associated with his fall last night. For the presumed hypothyroidism, the patient was loaded with a dose of 300 g here today. I want him to take 200 g daily for the next 5 days and he will be written for a prescription for 150 g tablets to take daily thereafter. He can use his 50 g tablets that he has at home to make the 200 g daily. The patient is leaving AGAINST MEDICAL ADVICE. He reports that he will go to [facility] tomorrow for further evaluation for his hypothyroidism and congestive heart failure as well as acute renal insufficiency and possible cholecystitis, as indicated on CT scan today. For the possibility of cholecystitis the patient is being given a dose of Zosyn here today. he should still be on his course of Keflex and metronidazole that he started for the diverticulitis, diagnosed [address] Blood culture has been performed. Clinically symptoms do not appear consistent with cholecystitis, however he does have a mild leukocytosis. His confusion is likely related to his evening medications and worsened by his hypothyroidism. I want him to decrease his trazodone from 150 mg to 50 mg at night. Additionally correcting the hypothyroid state may also reduce the episodes of confusion and amiodarone toxicity itself can be associated with confusion and hallucinations. As the patient is going to be evaluated by cardiology tomorrow I want him to discontinue his amiodarone for now and not take any until he is seen by cardiology tomorrow. He can continue his beta jasper in the form of either metoprolol or Coreg. Additionally, given the increased liver function tests and poor renal function the patient should hold on his metformin for now. He should also hold his pantoprazole for now. The Parafon forte should also be discontinued given his confusion. Additionally for his COPD he needs to do his breathing treatments every 4-6 hours for the next few days. the patient is planning for family to stay with him tonight and they can help him with his medication changes as above tonight. He is confident they can also help him get to [facility] tomorrow for more definitive care. The patient has refused transfer to [facility] for admission today. He does not need any further doses of Lasix or metolazone today. His lungs are clear to up well with one dose of IV Lasix today and the breathing treatments. He is not oxygen dependent at this time. 12/22/17 16:28 12/22/17 16:41 - Results/Orders Results/Orders: EKG shows a ventricularly paced rhythm at 60 bpm. Difficult to interpret otherwise. Chest x-ray shows cardiomegaly but no evidence of pulmonary edema. No focal infiltrate. Chronic changes otherwise. Abdomen shows a moderate amount of stool. No free air. No ileus or obstruction. CT scan of the head shows chronic changes only. No hemorrhage. No acute stroke. There is evidence of a previous stroke. CT scan of abdomen and pelvis shows no diverticulitis at this time. There is however a small amount of pericholecystic fluid around the gallbladder but no obvious blockage of the cystic duct or common bile duct. No definite gallbladder wall thickening. He is not tender over this area. Laboratory Results - last 24 hr 12/22/17 12/22/17 12/22/17 11:50 12:14 12:14 WBC 15.5 H D RBC 3.72 L Hgb 9.7 L Hct 30.5 L MCV 82.0 MCH 26.0 L MCHC 31.8 L RDW 16.9 H Plt Count 339 MPV 7.1 L Absolute Neuts (auto) 13.10 H Absolute Lymphs (auto) 0.80 L Absolute Monos (auto) 1.50 H Absolute Eos (auto) 0.00 Absolute Basos (auto) 0.00 Neutrophils % 84.7 H Lymphocytes % 5.3 L Monocytes % 9.9 H Eosinophils % 0.0 L Basophils % 0.1 PT INR PTT (SP) Sodium 141 Potassium 5.2 H Chloride 105 Carbon Dioxide 23 Anion Gap 18.2 H BUN 53 H D Creatinine 1.48 H D BUN/Creatinine Ratio 35.8 H Random Glucose 71 Serum Osmolality 294.1 Calcium 9.6 Magnesium 2.0 Total Bilirubin 1.7 H D AST 126 H D ALT 57 Alkaline Phosphatase 62 Creatine Kinase 4058 H* CK-MB (CK-2) 51.5 H* CK-MB (CK-2) % 1.27 Troponin I 0.05 B-Natriuretic Peptide 3110.0 H* Serum Total Protein 6.8 Albumin 4.1 Globulin 2.7 Albumin/Globulin Ratio 1.5 Amylase 119 H Lipase 32 Urine Color Urine Appearance Urine pH Ur Specific [place] Urine Protein Urine Glucose (UA) Urine Ketones Urine Blood Urine Nitrite Urine Bilirubin Urine Urobilinogen Ur Leukocyte Esterase Urine RBC Urine WBC Ur Epithelial Cells Urine Bacteria Urine Opiates Screen Negative Urine Barbiturates Negative Ur Phencyclidine Scrn Negative U Amphetamin/Meth Scrn Negative U Benzodiazepines Scrn Negative U Cocaine Metab Screen Negative U Cannabinoids Screen Negative 12/22/17 12/22/17 12:14 13:09 WBC RBC Hgb Hct MCV MCH MCHC RDW Plt Count MPV Absolute Neuts (auto) Absolute Lymphs (auto) Absolute Monos (auto) Absolute Eos (auto) Absolute Basos (auto) Neutrophils % Lymphocytes % Monocytes % Eosinophils % Basophils % PT 18.8 H INR 1.630 PTT (SP) 29.7 Sodium Potassium Chloride Carbon Dioxide Anion Gap BUN Creatinine BUN/Creatinine Ratio Random Glucose Serum Osmolality Calcium Magnesium Total Bilirubin AST ALT Alkaline Phosphatase Creatine Kinase CK-MB (CK-2) CK-MB (CK-2) % Troponin I B-Natriuretic Peptide Serum Total Protein Albumin Globulin Albumin/Globulin Ratio Amylase Lipase Urine Color Yellow Urine Appearance Clear Urine pH 5.5 Ur Specific [place] 1.015 Urine Protein Negative Urine Glucose (UA) Negative Urine Ketones Negative Urine Blood Negative Urine Nitrite Negative Urine Bilirubin Negative Urine Urobilinogen 0.2 Ur Leukocyte Esterase Negative Urine RBC 0 Urine WBC 0 Ur Epithelial Cells 0-1 Urine Bacteria 0 Urine Opiates Screen Urine Barbiturates Ur Phencyclidine Scrn U Amphetamin/Meth Scrn U Benzodiazepines Scrn U Cocaine Metab Screen U Cannabinoids Screen - EKG/XRAY/CT CT Ordered: Yes Departure - Departure Clinical Impression: Acute CHF Qualifiers: Congestive heart failure type: combined Qualified Code(s): I50.41 - Acute combined systolic (congestive) and diastolic (congestive) heart failure Acute renal failure Qualifiers: Acute renal failure type: unspecified Qualified Code(s): N17.9 - Acute kidney failure, unspecified Hypothyroidism Qualifiers: Hypothyroidism type: due to medication Qualified Code(s): E03.2 - Hypothyroidism due to medicaments and other exogenous substances Disposition: Discharge to Home or Self Care Condition: Fair Departure Forms: ED Discharge - Pt. Copy, Patient Portal Self Enrollment Instructions: DI for Heart Failure, Acute Renal Failure Diet: diabetic diet Activity: increase activity as tolerated Referrals: Mac Yun MD [Primary Care Provider] - 1-2 Days Prescriptions: Levothyroxine Sodium [Synthroid] 0.15 mg PO DAILY #20 tab traZODone HCL [Desyrel] 50 mg PO BEDTIME #20 tab Home Medications: Ambulatory Orders Glimepiride 4 mg PO BID 06/16/16 Lisinopril 20 mg PO BID 06/16/16 Metformin HCl 1,000 mg PO BID 06/16/16 Furosemide 40 mg PO DAILY 07/30/16 Carvedilol 12.5 mg PO BID 09/09/16 Ticagrelor [Brilinta] 90 mg PO BID 09/09/16 HYDROcodone 10MG/APAP 325MG [[place] 10/325] 2 tab PO TID 11/09/16 Levothyroxine Sodium [Synthroid] 50 mcg PO DAILY #30 tab 02/24/17 Pravastatin Sodium 40 mg PO BEDTIME 03/09/17 Albuterol Inhaler [Ventolin Hfa Inhaler] 108 mcg IN Q4HR PRN #1 inh 12/19/17 Amiodarone HCl 200 mg PO BID 12/22/17 Budesonide-Formoterol Fumarate [Symbicort] 2 inh IN BID 12/22/17 Chlorzoxazone [Parafon Forte DSC] 500 mg PO QID PRN 12/22/17 Clopidogrel Bisulfate 75 mg PO DAILY 12/22/17 Harvoni 90mg/400mg 1 ea PO DAILY 12/22/17 Insulin Detemir [Levemir] 10 units SUBCU DAILY 12/22/17 Levothyroxine Sodium [Synthroid] 0.15 mg PO DAILY #20 tab 12/22/17 Metoprolol Tartrate 100 mg PO BID 12/22/17 Pantoprazole Sodium 40 mg PO DAILY 12/22/17 Paroxetine HCl [Paxil] 20 mg PO DAILY 12/22/17 Risperidone [Risperdal] 0.5 mg PO BEDTIME 12/22/17 Sitagliptin Phosphate [Januvia] 100 mg PO DAILY 12/22/17 traZODone HCL [Desyrel] 50 mg PO BEDTIME #20 tab 12/22/17 Additional Instructions: the patient is a 72-year-old male presenting with a somewhat puzzling clinical picture. The patient does appear to have worsening congestive heart failure that is possibly related to worsening hypothyroidism, but of course may also be related to medication side effects, infection, etc. Our laboratory machine for evaluating a TSH is nonfunctional at this time. Results should be back later tonight. His TSH had markedly elevated over the last 3 months when checked a couple of weeks ago, going from 4 to 21. It does not appear that he has changed his thyroid dose so it stands to reason that is likely as bad as it was or has continued to worsen. The patient does take amiodarone which is the most likely source for his deteriorating thyroid function. The patient also has worsening of his kidney function. He also has a mild elevation in his liver function tests. No elevation in alkaline phosphatase. The patient has an elevation in his CK which may be associated with rhabdomyolysis but may also be associated with his fall last night. For the presumed hypothyroidism, the patient was loaded with a dose of 300 g here today. I want him to take 200 g daily for the next 5 days and he will be written for a prescription for 150 g tablets to take daily thereafter. He can use his 50 g tablets that he has at home to make the 200 g daily. The patient is leaving AGAINST MEDICAL ADVICE. He reports that he will go to [facility] tomorrow for further evaluation for his hypothyroidism and congestive heart failure as well as acute renal insufficiency and possible cholecystitis, as indicated on CT scan today. For the possibility of cholecystitis the patient is being given a dose of Zosyn here today. he should still be on his course of Keflex and metronidazole that he started for the diverticulitis, diagnosed [address] Blood culture has been performed. Clinically symptoms do not appear consistent with cholecystitis, however he does have a mild leukocytosis. His confusion is likely related to his evening medications and worsened by his hypothyroidism. I want him to decrease his trazodone from 150 mg to 50 mg at night. Additionally correcting the hypothyroid state may also reduce the episodes of confusion and amiodarone toxicity itself can be associated with confusion and hallucinations. As the patient is going to be evaluated by cardiology tomorrow I want him to discontinue his amiodarone for now and not take any until he is seen by cardiology tomorrow. He can continue his beta jasper in the form of either metoprolol or Coreg. Additionally, given the increased liver function tests and poor renal function the patient should hold on his metformin for now. He should also hold his pantoprazole for now. The Parafon forte should also be discontinued given his confusion. Additionally for his COPD he needs to do his breathing treatments every 4-6 hours for the next few days. the patient is planning for family to stay with him tonight and they can help him with his medication changes as above [facility]. He is confident they can also help him get to [facility] tomorrow for more definitive care. The patient has refused transfer to [facility] for admission today. He does not need any further doses of Lasix or metolazone today. His lungs are clear to up well with one dose of IV Lasix today and the breathing treatments. He is not oxygen dependent at this time.
[2017-12-22 17:04] VITALS: BP 133/72; O2SAT 96
[2017-12-23] MEDS ORDERED: LEVOTHYROXINE SODIUM 0.075 MG TAB PO ONE (13:44)
== END 2017-12-22 17:04 | disposition home or self-care (01) ==
LOC: ER 11:23
DX: I50.41 Acute combined systolic (congestive) and diastolic (congestive) heart failure (principal); N17.9 Acute kidney failure, unspecified; E03.2 Hypothyroidism due to medicaments and other exogenous substances; R41.0 Disorientation, unspecified; J44.9 Chronic obstructive pulmonary disease, unspecified; Z86.73 Personal history of transient ischemic attack (TIA), and cerebral infarction without residual deficits; Z79.4 Long term (current) use of insulin; Z79.02 Long term (current) use of antithrombotics/antiplatelets; Z79.899 Other long term (current) drug therapy
CPT/HCPCS: 36415; 70450; 74019; 74176; 80053; 80307; 81001; 82150; 82550; 82553; 83690; 83735; 83880; 84439; 84443; 84484; 85025; 85610; 85730; 87040; 93005; 94640; J1940; J2543; J7050; J7512; J7620

== ENCOUNTER 2018-01-05 06:19 | Emergency (ER) | payer MEDICARE ==
[2018-01-05] MEDS ORDERED: ASPIRIN (CHEWABLE) 81 MG TAB PO ONE (06:47)
--- NOTE | 2018-01-05 06:51 | ED.PDOC ---
History of Present Illness - General Source: family, EMS Exam Limitations: clinical condition - History of Present Illness Initial Comments: ON HOSPICE FOR END STAGE CHF, FOR WHICH PT WAS SUPPOSED TO GO TO SNF TODAY. THE FAMILY CALLED 911 FOR CP. PT IS DENYING CP. IS NOT A STRONG HISTORIAN. IT IS UNCERTAIN HOW LONG AGO THE CP STARTED. DENIES SOB. OF NOTE, PER NURSING STAFF AND CHART REVIEW, PT HAS A H/O BEING BELIGERENT WITH STAFF AND LEAVING AMA. Severity: moderate Location: other - L CHEST Activities at Onset: none Prior Chest Pain/Cardiac Workup: other - H/O PACEMAKER, END STAGE CHF ON HOSPICE. Improving Factors: nothing Worsening Factors: nothing Nitro Today/Relief: no nitro taken today Associated Symptoms: other - PT IS NOT ANSWERING QUESTIONS, ORIENTED ONLY TO SELF. <Joaquin Lucas M - Last Filed: 01/05/18 06:54> <Benton Mcadams - Last Filed: 01/05/18 09:28> - General Chief Complaint: Cardiovascular Problem Stated Complaint: left side chest pain Time Seen by Provider: 01/05/18 06:46 - History of Present Illness Allergies/Adverse Reactions: Allergies NO KNOWN ALLERGY Allergy (Verified 12/21/17 00:45) Home Medications: Ambulatory Orders Glimepiride 4 mg PO BID 06/16/16 Lisinopril 20 mg PO BID 06/16/16 Metformin HCl 1,000 mg PO BID 06/16/16 Furosemide 40 mg PO DAILY 07/30/16 Carvedilol 12.5 mg PO BID 09/09/16 Ticagrelor [Brilinta] 90 mg PO BID 09/09/16 HYDROcodone 10MG/APAP 325MG [[place] 10/325] 2 tab PO TID 11/09/16 Levothyroxine Sodium [Synthroid] 50 mcg PO DAILY #30 tab 02/24/17 Pravastatin Sodium 40 mg PO BEDTIME 03/09/17 Albuterol Inhaler [Ventolin Hfa Inhaler] 108 mcg IN Q4HR PRN #1 inh 12/19/17 Amiodarone HCl 200 mg PO BID 12/22/17 Budesonide-Formoterol Fumarate [Symbicort] 2 inh IN BID 12/22/17 Chlorzoxazone [Parafon Forte DSC] 500 mg PO QID PRN 12/22/17 Clopidogrel Bisulfate 75 mg PO DAILY 12/22/17 Harvoni 90mg/400mg 1 ea PO DAILY 12/22/17 Insulin Detemir [Levemir] 10 units SUBCU DAILY 12/22/17 Levothyroxine Sodium [Synthroid] 0.15 mg PO DAILY #20 tab 12/22/17 Metoprolol Tartrate 100 mg PO BID 12/22/17 Pantoprazole Sodium 40 mg PO DAILY 12/22/17 Paroxetine HCl [Paxil] 20 mg PO DAILY 12/22/17 Risperidone [Risperdal] 0.5 mg PO BEDTIME 12/22/17 Sitagliptin Phosphate [Januvia] 100 mg PO DAILY 12/22/17 traZODone HCL [Desyrel] 50 mg PO BEDTIME #20 tab 12/22/17 Review of Systems - Review of Systems Cardiology: Denies: chest pain Unable to Obtain Due To: condition, other - PT DENIES C.P. BUT IS ORIENTED ONLY TO SELF AND DOESN'T ANSWER ADDITIONAL QUESTIONS. <Joaquin Lucas - Last Filed: 01/05/18 06:54> Past Medical History (General) - Patient Medical History Hx Seizures: No Hx Stroke: No Hx Dementia: No Hx Asthma: No Hx of COPD: Yes Hx Cardiac Disorders: Yes Hx Congestive Heart Failure: Yes Hx Pacemaker: Yes Hx Hypertension: No Hx Thyroid Disease: Yes Hx Diabetes: Yes Hx Gastroesophageal Reflux: No Hx Renal Disease: No Hx Cancer: No Hx of HIV: No Hx Hepatitis C: No Hx MRSA: No Surgical History: noncontributory - Vaccination History Hx Tetanus, Diphtheria Vaccination: No Hx Influenza Vaccination: No Hx Pneumococcal Vaccination: No - Social History Hx Tobacco Use: Yes Hx Chewing Tobacco Use: No Hx Alcohol Use: Yes Hx Substance Use: Yes Hx Substance Use Treatment: No Hx Depression: Yes Hx Physical Abuse: No Hx Emotional Abuse: No Hx Suspected Abuse: No - Female History Patient : No <Joaquin Lucas Last Filed: 01/05/18 06:54> Family Medical History - Family History Father Family History: Unknown Living Status: Unknown Hx Cardiac Disease: Yes - dad-mi age 61 Mother Living Status: Hx Family Cancer: Yes <Joaquin Lucas Last Filed: 01/05/18 06:54> Physical Exam - Physical Exam General Appearance: Ill Appearing, Obese Eyes, Ears, Nose, Throat Exam: normal ENT inspection, pharynx normal Neck: non-tender, other - JVD Respiratory: decreased breath sounds, other - CHEST TTP Cardiovascular/Chest: normal peripheral pulses, regular rate, rhythm Peripheral Pulses: radial,right: 1+, radial,left: 1+ Gastrointestinal/Abdominal: normal bowel sounds, non tender, soft Extremity: non-tender, normal inspection 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 Skin Exam: warm/dry, other - ASHEN APPEARANCE Lymphatic: no adenopathy <Joaquin Lucas M - Last Filed: 01/05/18 06:54> Progress - Progress Progress: 01/05/18 07:07 FURTHER CARE BEING TRANSFERRED FROM DR. LUCAS TO DR. MCADAMS. <Joaquin Lucas M - Last Filed: 01/05/18 06:54> - Progress Progress: 01/05/18 07:43 Vital Signs - 24 hr 01/05/18 06:25 Temperature 97.6 F Pulse Rate [ 60 monitor] Respiratory 28 H Rate Blood Pressure 143/71 [Left Arm] O2 Sat by Pulse 99 Oximetry 01/05/18 09:25 Had urine output initial 800 cc - Results/Orders Results/Orders: 01/05/18 06:39 Telemetry .ONCE EKG Stat Pulse Ox Stat 01/05/18 07:45 Be Our Guest Tray ([facility] [place] ONCE Laboratory Results - last 24 hr 01/05/18 01/05/18 01/05/18 06:35 06:35 06:36 WBC 8.8 RBC 3.77 L Hgb 9.9 L Hct 31.1 L MCV 82.6 MCH 26.2 L MCHC 32.0 L RDW 17.9 H Plt Count 259 MPV 6.8 L Absolute Neuts (auto) 7.20 H Absolute Lymphs (auto) 0.70 L Absolute Monos (auto) 0.80 Absolute Eos (auto) 0.10 Absolute Basos (auto) 0.00 Neutrophils % 81.4 H Lymphocytes % 7.9 L Monocytes % 8.8 Eosinophils % 1.4 Basophils % 0.5 PT 14.2 H INR 1.230 PTT (SP) 32.3 D-Dimer, Quantitative 583 H* Sodium 142 Potassium 4.0 Chloride 109 Carbon Dioxide 25 Anion Gap 12.0 BUN 15 Creatinine 1.11 BUN/Creatinine Ratio 13.5 Random Glucose 92 Serum Osmolality 283.6 Calcium 8.6 Magnesium 1.8 Total Bilirubin 1.0 Direct Bilirubin 0.5 H Indirect Bilirubin 0.5 AST 27 ALT 29 Alkaline Phosphatase 67 Creatine Kinase 123 CK-MB (CK-2) 5.4 H* CK-MB (CK-2) % Not Reportable Troponin I 0.04 B-Natriuretic Peptide 3830.0 H* Serum Total Protein 6.2 L Albumin 3.4 - EKG/XRAY/CT Comments: HR-63 pacemaker rhythm XRAY: chest - cardiomegaly w/o overt failure or consolidation upper normal vascularity/radiologist <Benton Mcadams - Last Filed: 01/05/18 09:28> Departure <Joaquin Lucas - Last Filed: 01/05/18 06:54> <Benton Mcadams - Last Filed: 01/05/18 09:28> - Departure Clinical Impression: Non compliance w medication regimen Congestive heart failure (CHF) Qualifiers: Congestive heart failure type: combined Congestive heart failure chronicity: acute on chronic Qualified Code(s): I50.43 - Acute on chronic combined systolic (congestive) and diastolic (congestive) heart failure Disposition: Discharge to SNF Condition: Poor Departure Forms: ED Discharge - Pt. Copy, Patient Portal Self Enrollment Instructions: DI for Heart Failure, Heart Failure, Congestive Heart Failure ( Alternative Therapy) Referrals: Mac Yun MD [Primary Care Provider] - 1-2 Weeks Home Medications: Ambulatory Orders Glimepiride 4 mg PO BID 06/16/16 Lisinopril 20 mg PO BID 06/16/16 Metformin HCl 1,000 mg PO BID 06/16/16 Furosemide 40 mg PO DAILY 07/30/16 Carvedilol 12.5 mg PO BID 09/09/16 Ticagrelor [Brilinta] 90 mg PO BID 09/09/16 HYDROcodone 10MG/APAP 325MG [[place] 10325] 2 tab PO TID 11/09/16 Levothyroxine Sodium [Synthroid] 50 mcg PO DAILY #30 tab 02/24/17 Pravastatin Sodium 40 mg PO BEDTIME 03/09/17 Albuterol Inhaler [Ventolin Hfa Inhaler] 108 mcg IN Q4HR PRN #1 inh 12/19/17 Amiodarone HCl 200 mg PO BID 12/22/17 Budesonide-Formoterol Fumarate [Symbicort] 2 inh IN BID 12/22/17 Chlorzoxazone [Parafon Forte DSC] 500 mg PO QID PRN 12/22/17 Clopidogrel Bisulfate 75 mg PO DAILY 12/22/17 Harvoni 90mg/400mg 1 ea PO DAILY 12/22/17 Insulin Detemir [Levemir] 10 units SUBCU DAILY 12/22/17 Levothyroxine Sodium [Synthroid] 0.15 mg PO DAILY #20 tab 12/22/17 Metoprolol Tartrate 100 mg PO BID 12/22/17 Pantoprazole Sodium 40 mg PO DAILY 12/22/17 Paroxetine HCl [Paxil] 20 mg PO DAILY 12/22/17 Risperidone [Risperdal] 0.5 mg PO BEDTIME 12/22/17 Sitagliptin Phosphate [Januvia] 100 mg PO DAILY 12/22/17 traZODone HCL [Desyrel] 50 mg PO BEDTIME #20 tab 12/22/17 Additional Instructions: Continue with all home medications
--- NOTE | 2018-01-05 07:34 | RAD ---
EXAM DESCRIPTION: Chest,1 View CLINICAL HISTORY: 72 years Male, chest pain complaint COMPARISON: December 21, 2017 TECHNIQUE: AP portable chest. FINDINGS: Single view of the chest demonstrates small lung volumes without evidence of dense lobar consolidation or pneumothorax or large pleural effusion. Modest cardiomegaly and tortuous aorta is unchanged from prior November examination with stable position of indwelling permanent pacer. Previous sternotomy is noted. Vascularity is upper limits of normal but slightly less prominent than previously seen. IMPRESSION: Cardiomegaly and small lung volumes with upper normal vascularity without overt failure or consolidation. Electronically signed by: Danny Delgado MD 01/05/2018 7:33 AM CDT
[2018-01-05] MEDS ORDERED: NITROGLYCERIN 0.4 MG 25 EA TAB SL ONE (07:36)
[2018-01-05] MEDS ORDERED: BUMETANIDE 0.25 MG/ML VIAL IV ONE (07:36)
[2018-01-05] MEDS ORDERED: HYDROcodone 10MG/APAP 325MG 1 EA TAB PO ONE (07:38)
[2018-01-05] MEDS ORDERED: FUROSEMIDE 40 MG TAB PO ONE (07:38)
[2018-01-05] MEDS ORDERED: metOLazone 2.5 MG TAB PO ONE (07:38)
[2018-01-05] MEDS ORDERED: NEOMYCIN-BACITRACIN-POLYMYXIN 0.9 GM UD TOP ONE (09:28)
[2018-01-05] MEDS ORDERED: POVIDONE IODINE 10 % 15 ML UD TOP ONE (09:28)
[2018-01-05 09:44] VITALS: BP 125/63; TEMP 96; O2SAT 97
== END 2018-01-05 09:30 ==
LOC: ER 06:19
DX: I11.0 Hypertensive heart disease with heart failure (principal); I50.84 End stage heart failure; I50.43 Acute on chronic combined systolic (congestive) and diastolic (congestive) heart failure; J44.9 Chronic obstructive pulmonary disease, unspecified; E11.9 Type 2 diabetes mellitus without complications; Z91.14 Patient's other noncompliance with medication regimen; Z95.0 Presence of cardiac pacemaker; Z79.84 Long term (current) use of oral hypoglycemic drugs; Z79.4 Long term (current) use of insulin; Z87.891 Personal history of nicotine dependence
CPT/HCPCS: 36415; 71045; 80048; 80076; 82550; 82553; 83880; 84484; 85025; 85379; 85610; 85730; 93005; J3490

== ENCOUNTER 2018-02-03 16:20 | Inpatient (IN) | payer OTHER ==
--- NOTE | 2018-02-03 16:48 | HP ---
SUPERVISING PHYSICIAN: Corey Martinez MD CHIEF COMPLAINT: Shortness of breath and decreased level of consciousness. HISTORY OF PRESENT ILLNESS: This is a 72-year-old male patient who is on [facility] care at home. It has been requested by [facility] and the family that he be admitted to the hospital for symptom control for hospice care. His hospice diagnosis is congestive heart failure and he will be admitted for symptomatic care under [facility]. His primary care physician is Dr. Mac Yun. PAST MEDICAL HISTORY: 1. Congestive heart failure. 2. Coronary artery disease. 3. Type 2 diabetes mellitus. 4. Hypothyroidism. PAST SURGICAL HISTORY: 1. Four vessel coronary artery bypass graft. 2. Cataract removal. OUTPATIENT MEDICATIONS: Noncontributory and will not be restarted. ALLERGIES: NO KNOWN DRUG ALLERGIES. SOCIAL HISTORY: He lives in [place]. He quit smoking several years ago. There is no history of alcohol or illicit drug use. REVIEW OF SYSTEMS: Unavailable due to the patient's condition. PHYSICAL EXAMINATION: VITAL SIGNS: Temperature 99.1. Pulse rate 87. Blood pressure 134/82. Respiratory rate 32. O2 saturation 88%. GENERAL: This is a 72-year-old male patient lying in his hospital bed. He is in moderate respiratory distress. HEENT: Normocephalic, atraumatic. Pupils are equal and reactive. Oropharynx is clear. It is somewhat dry. NECK: Supple without mass. RESPIRATORY: Scattered rhonchi throughout with congestion and crackles noted. CARDIOVASCULAR: Regular rate and rhythm. GASTROINTESTINAL: Abdomen is soft, nondistended. Bowel sounds are positive. EXTREMITIES: Trace pedal edema. Otherwise, no cyanosis or clubbing. NEUROLOGIC: He is obtunded. He grimaces to noxious stimuli. LABORATORY: There are no labs and films at this time. IMPRESSION: 1. Congestive heart failure of unknown etiology. He is presently on [facility] care. PLAN: We will admit the patient to the hospital. Orders will be per [facility]. We will defer to Dr. Lema as well as [facility] for any orders or management of care. #[id number] [facility]
[2018-02-03] MEDS ORDERED: ONDANSETRON INJ 4 MG/2 ML VIAL IV PRN (16:56)
[2018-02-03] MEDS ORDERED: ALBUTEROL SULFATE 2.5 MG/3 ML VIAL NEB PRN (17:08)
[2018-02-03] MEDS ORDERED: SCOPOLAMINE PATCH 1.5MG 1 EA TD SCH (17:30)
[2018-02-03] MEDS ORDERED: ATROPINE 1% OPHTH SOL 1 DROP DROPS SL PRN (17:31)
[2018-02-03] MEDS: ALBUTEROL SULFATE 2.5 MG/3 ML VIAL NEB SCH (20:00)
[2018-02-03] MEDS: MORPHINE SULFATE INJ 10 MG/ML VIAL IV PRN (20:48)
[2018-02-03] MEDS: IPRATROPIUM/ALBUTEROL 3 ML VIAL NEB PRN (23:08)
[2018-02-03] MEDS: MORPHINE SULFATE INJ 10 MG/ML VIAL NEB PRN (23:13)
[2018-02-04] MEDS ORDERED: IPRATROPIUM/ALBUTEROL 3 ML VIAL NEB SCH
[2018-02-04] MEDS: MORPHINE SULFATE INJ 10 MG/ML VIAL IV PRN ×4 (06:37→14:26)
[2018-02-04] MEDS: ALBUTEROL SULFATE 2.5 MG/3 ML VIAL NEB SCH ×4 (08:00→20:14)
[2018-02-04] MEDS: IPRATROPIUM/ALBUTEROL 3 ML VIAL NEB PRN ×2 (10:56→16:00)
[2018-02-04] MEDS: MORPHINE SULFATE INJ 10 MG/ML VIAL NEB PRN ×2 (11:15→16:15)
[2018-02-04] MEDS: ATROPINE 1% OPHTH SOL 1 DROP DROPS SL PRN ×3 (11:20→14:29)
[2018-02-05 06:16] VITALS: BP 67/31; O2SAT 80
[2018-02-05 07:31] VITALS: TEMP 100.1
[2018-02-05] MEDS: ALBUTEROL SULFATE 2.5 MG/3 ML VIAL NEB SCH ×2 (09:16→16:36)
[2018-02-05] MEDS: MORPHINE SULFATE INJ 10 MG/ML VIAL IV PRN (11:39)
--- NOTE | 2018-02-06 20:38 | DS ---
SUPERVISING PHYSICIAN: Tong Zamora M.D. DISCHARGE DIAGNOSIS: 1. . HISTORY OF PRESENT ILLNESS: This is a 72 year-old male patient who was admitted on 02/03/18 for [facility] due to end stage congestive heart failure. Orders and care was assumed by [facility]. The patient on 02/05/18 at 1535. DISCHARGE PLAN: The patient was pronounced by [facility]. The body will be released to the home of family's choice. [facility][id number] [facility]
== END 2018-02-05 15:35 | disposition expired | DRG 951 ==
LOC: UNDOADMIN 16:20 → MS 16:20
PROVIDERS: ADMIT Nurse Practitioner Acute Care; ATTEND Nurse Practitioner Acute Care
DX: Z51.5 Encounter for palliative care (principal); I50.9 Heart failure, unspecified; I25.10 Atherosclerotic heart disease of native coronary artery without angina pectoris; E11.9 Type 2 diabetes mellitus without complications; E03.9 Hypothyroidism, unspecified; Z66 Do not resuscitate; Z95.1 Presence of aortocoronary bypass graft; Z87.891 Personal history of nicotine dependence